=== PATIENT | female | born 1975 | race Caucasian/White ===

== ENCOUNTER 2016-05-07 09:47 | Emergency (ER) | payer MEDICAID ==
[~2016-05-07] VITALS: Ht 162.6 cm; Wt 86.2 kg
[~2016-05-07 09:47] MED LIST: AMIT25TA9 PO; ASP325T; CEFD300C3 PO; CEPH500C PO; CITA20TA12 PO; ENXP80I.8 SC; ETOD500T PO; HYDR-34 PO; HYDR-757 PO; INDM25C PO; MECL25TA56 PO; META-84 PO; MTP25TSR PO; ORPH100T PO; PROP20TA5 PO; TRAM50TA2 PO; WARF5TAB PO; WARF7.5T PO; mucinex
[2016-05-07] MEDS ORDERED: METO-272 PO (10:23)
[2016-05-07] MEDS ORDERED: HYDR-3584 PO (10:23)
[2016-05-07] MEDS ORDERED: DOXY-227 PO (10:23)
[2016-05-07] MEDS ORDERED: FLUT9.9S NS (10:23)
--- NOTE | 2016-05-07 11:44 | ED Headache ---
General Chief Complaint: Head/Cervical Problems Stated Complaint: MIGRANE Nursing Triage Note: PT CO OF MIGRAINE HERNANDEZ, PT HAS RECENTLY BEEN ON ANTIBIOTICS FOR SINUS INFECTION Nursing Sepsis Screen: No Definite Risk Source: patient Exam Limitations: no limitations History of Present Illness Time seen by provider: 11:44 Initial Comments 40-year-old female patient presents to the emergency department complaints of a [place] headache. Patient states she does have a history of suffering from migraines but has not had one for quite some time. Patient was recently treated for sinus infection and feels like this is what initiated the migraine headache. Denies fevers. Timing/Duration: waxing and waning, other (3 days) Severity/Quality: throbbing Location: frontal, parietal Prior Headaches/Recent Trauma: occasional headaches Modifying Factors: worse with exposure to light, worse with other (exposure to sound) Allergies and Home Medications Allergies Coded Allergies: No Known Drug Allergies (Verified , 01/01/09) Home Medications Doxycycline Hyclate 100 Mg Tablet.dr 100 MG PO BID (Reported) Fluticasone Propionate 9.9 Ml [place].susp 9.9 ML NS (Reported) Hydroxyzine HCl 10 Mg Tablet Unknown Dose PO (Reported) Metoprolol Succinate 50 Mg Tab.er.24h 50 MG PO DAILY (Reported) Sumatriptan Succinate 50 Mg Tab #14 50 MG PO ONCE PRN PRN HEADACHE you may repeat dose x 1 if needed. Prescribed by: PARIS VANCE on 05/07/16 5834 Constitutional: No chills, No dizziness, No fever, No malaise, No weakness Eyes: Denies Blindness, Denies Blurred Vision, Denies Decreased Acuity, Denies Inflammation, Denies Pain, Photophobia Other (scatomas) Ears, Nose, Mouth, Throat: denies ear pain, denies ear discharge, denies nose pain, denies nose discharge, denies epistaxis, denies mouth pain, denies loose teeth, denies throat pain Respiratory: no symptoms reported Cardiovascular: no symptoms reported Gastrointestinal: no symptoms reported Genitourinary: no symptoms reported Musculoskeletal: no symptoms reportedNo neck pain Skin: no symptoms reported Psychiatric/Neurological: HeadacheDenies Numbness, Denies Paresthesia, Denies Seizure, Denies Tingling, Denies Weakness All Other Systems Reviewed Negative Unless Noted: Yes (Negative excepted noted.) Past Vvdhhzl-Xnuzdc-Gjoesa Hx Patient Social History Alcohol Use: Occasionally Uses Recreational Drug Use: No Smoking Status: Current Everyday Smoker Type Used: Cigarettes Recent Foreign Travel: No Contact w/Someone Who Travel: No Recent Infectious Disease Expo: No Recent Hopitalizations: No (LABOR) Physical Abuse Screen: No Sexual Abuse: No Immunizations Up To Date Tetanus Booster (TDap): Less than 5yrs Surgeries HX Surgeries: Yes (LIVER BIOPSY, BRONCHOSCOPY, L KNEE SCOPE) Surgeries: Orthopedic Respiratory Hx Respiratory Disorders: No Cardiovascular Hx Cardiac Disorders: Yes (FREQUENT PVCS) Cardiac Disorders: Deep Vein Thrombosis, Hypertension Neurological Hx Neurological Disorders: Yes Neurological Disorders: Headaches /Migraines Reproductive System Hx Reproductive Disorders: No Genitourinary Hx Genitourinary Disorders: No Gastrointestinal Hx Gastrointestinal Disorders: Yes (LIVER BIOPSY 3-4 YEARS AGO; HEP C) Gastrointestinal Disorders: Hepatitis Musculoskeletal Hx Musculoskeletal Disorders: Yes (SACROLITIS) Musculoskeletal Disorders: Rheumatoid Arthritis Endocrine Hx Endocrine Disorders: Yes (NOT TREATED) Endocrine Disorders: Hyperthyroidism HEENT HX ENT Disorders: No Cancer Hx Cancer: No Psychosocial Hx Psychiatric Problems: Yes Behavioral Health Disorders: Depression Blood Transfusions Hx Blood Disorders: Yes (HEP C ) Reviewed Nursing Assessment Reviewed/Agree w Nursing PMH: Yes Family Medical History Significant Family History: No Pertinent Family Hx Family Medial History: Cancer 19 FATHER G8 SISTER Family history: Diabetes mellitus 19 FATHER G8 SISTER Family history: Hypertension 19 FATHER Physical Exam Vital Signs Vital Sign - Last 12Hours 05/07/16 10:14 Temp 98.4 Pulse 68 Resp 18 B/P 137/80 Pulse Ox 97 Capillary Refill : Less Than 3 Seconds General Appearance: WD/WN no apparent distress HEENT: PERRL/EOMI normal ENT inspection TMs normal pharynx normal Neck: non-tender full range of motion supple normal inspection Cardiovascular: normal peripheral pulses regular rate, rhythm no edema no murmur Respiratory: lungs clear normal breath sounds no respiratory distress Gastrointestinal: non tender softNo distended Back: normal inspection Extremities: no pedal edema no calf tenderness normal capillary refill Psychiatric: alert oriented x 3 Crainal Nerves: normal hearing normal speech PERRL Coordination/Gait: normal finger to nose normal gait negative Romberg's sign Motor/Sensory: no motor deficit no sensory deficit no pronator drift Skin: normal color warm/dry Progress/Results/Core Measures Results/Orders My Orders Orders-PARIS VANCE Saline Lock/Iv-Start (05/07/16 11:56) Ketorolac Injection (Toradol Injection) (05/07/16 11:56) Orphenadrine Injection (Norflex Injectio (05/07/16 11:56) Ondansetron Injection (Zofran Injectio (05/07/16 12:00) Ns Iv 1000 Ml (Sodium Chloride 0.9%) (05/07/16 11:56) Diphenhydramine Injection (Benadryl Inje (05/07/16 11:56) Vital Signs/I&O Vital Sign - Last 12Hours 05/07/16 05/07/16 10:14 13:14 Temp 98.4 Pulse 68 62 Resp 18 18 B/P 137/80 Pulse Ox 97 97 Blood Pressure Mean: 99 Departure Communication Progress Notes Patient reports was complete resolution of symptoms with medications and IV fluids given. Alert and oriented 3, no acute distress. Proceed with discharge to home. All return precautions were discussed with the patient as described in the discharge instructions of this report. Patient voices understanding and agrees with the treatment plan. Patient ambulated from the emergency department without difficulty. Impression Impression: Primary Impression: Migraine Qualified Code: G43.909 - Migraine, unspecified, not intractable, without status migrainosus Disposition: 01 HOME, SELF-CARE Condition: Improved Departure-Patient Inst. Decision time for Depature: 12:19 Referrals: [facility] (PCP/Family) Primary Care Physician Patient Instructions: Migraine Headache (DC) Add. Discharge Instructions: All discharge instructions reviewed with patient and/or family. Voiced understanding. Medications as instructed. Tylenol extra strength over-the- counter as directed for pain. Ibuprofen 800 mg by mouth every 8 hours as needed for pain. Avoid bright lights and loud noises. Drink plenty of fluids. Follow-up with a family practitioner if no improvement in symptoms. Return to the emergency department immediately for worsened headache, dizziness, changes in vision, changes in behavior, slurred speech, numbness, weakness, seizure, or any other concerns. Scripts Sumatriptan Succinate (Imitrex)50 Mg Tab50 Mg PO ONCE PRN HEADACHE #14 TAB Ref 0 you may repeat dose x 1 if needed. Prov:PARIS VANCE 05/07/16 Work/School Note: Work Release Form Date Seen in the Emergency Department: May 07, 2016 Return to Work: May 08, 2016 Restrictions: No Restrictions Other Restrictions Listed Below: please excuse patient's absence 05/06 and 05/07. PARIS VANCE May 07, 2016 11:44
[2016-05-07] MEDS ORDERED: KETOROLAC 30 MG/ML VIAL IVP STA (11:56)
[2016-05-07] MEDS ORDERED: NS IV 1000 ML 1,000 ML IV ONE (11:56)
[2016-05-07] MEDS ORDERED: diphenhydrAMINE 50 MG/ML INJ (BENADRYL) IV STA (11:56)
[2016-05-07] MEDS ORDERED: ORPHENADRINE 60 MG/2 ML (NORFLEX) AMP IV STA (11:56)
[2016-05-07] MEDS ORDERED: ONDANSETRON 4 MG/2 ML (SDV) Z0FRAN IVP ONE (12:00)
[2016-05-07] MEDS ORDERED: SMTR50T PO (12:07)
[2016-05-07 13:14] VITALS: BP 122/71
== END 2016-05-07 13:14 | disposition home or self-care (01) ==
LOC: EDUNIT# 09:47 → ER 09:49
DX: G43.909 Migraine, unspecified, not intractable, without status migrainosus (principal); F17.210 Nicotine dependence, cigarettes, uncomplicated
CPT/HCPCS: 96361; 96374; 96375

== ENCOUNTER 2016-05-09 14:58 | Emergency (ER) | payer MEDICAID ==
[~2016-05-09] VITALS: Ht 162.6 cm; Wt 86.5 kg
[~2016-05-09 14:58] MED LIST changes: +DOXY-227 PO; +FLUT9.9S NS; +HYDR-3584 PO; +METO-272 PO; +SMTR50T PO
[2016-05-09] MEDS ORDERED: ACET/BUTAL/CAFF (FIORICET) TAB PO PRN (15:30)
--- NOTE | 2016-05-09 15:33 | ED General ---
General Stated Complaint: LIGHTHEADED/DIZZY HEADACHE Source of Information: Patient Exam Limitations: No Limitations History of Present Illness Time Seen by Provider: 15:31 Initial Comments To ER with reports of lightheadedness and dizziness as well as a right-sided frontal headache. She was seen here 2 days ago for a migraine which she gets about once every 2 years. She was given Imitrex which did improve her headache symptoms although it remained present just to a lesser degree. She was treated a few weeks ago for sinusitis with antibiotics but finished antibiotics about 4- 5 days ago. Denies fevers or chills. Denies nasal congestion. She does feel like her symptoms improved after the antibiotics. She is concerned because she is very weak and has been exposed to mono she states. Timing/Duration: 3-4 Days Severity: Moderate Associated Systoms: Malaise Weakness Allergies and Home Medications Allergies Coded Allergies: No Known Drug Allergies (Verified , 01/01/09) Home Medications Doxycycline Hyclate 100 Mg Tablet.dr 100 MG PO BID (Reported) Fluticasone Propionate 9.9 Ml [place].susp 9.9 ML NS (Reported) Hydroxyzine HCl 10 Mg Tablet Unknown Dose PO (Reported) Metoprolol Succinate 50 Mg Tab.er.24h 50 MG PO DAILY (Reported) Sumatriptan Succinate 50 Mg Tab #14 50 MG PO ONCE PRN PRN HEADACHE you may repeat dose x 1 if needed. Prescribed by: PARIS VANCE on 05/07/16 1207 Constitutional: see HPI malaise weakness EENTM: see HPINo ear pain, No eye pain, No nose congestion Respiratory: no symptoms reportedNo dyspnea on exertion Cardiovascular: no symptoms reported Genitourinary: no symptoms reported Musculoskeletal: no symptoms reported Skin: no symptoms reported Psychiatric/Neurological: No Symptoms Reported Hematologic/Lymphatic: No Symptoms Reported Immunological/Allergic: no symptoms reported Past Boulppb-Isgcrr-Sbmfyx Hx Patient Social History Type Used: Cigarettes Recent Foreign Travel: No Contact w/Someone Who Travel: No Recent Hopitalizations: No (LABOR) Immunizations Up To Date Tetanus Booster (TDap): Less than 5yrs Surgeries HX Surgeries: Yes (LIVER BIOPSY, BRONCHOSCOPY, L KNEE SCOPE) Surgeries: Orthopedic Respiratory Hx Respiratory Disorders: No Cardiovascular Hx Cardiac Disorders: Yes (FREQUENT PVCS) Cardiac Disorders: Deep Vein Thrombosis, Hypertension Neurological Hx Neurological Disorders: Yes Neurological Disorders: Headaches /Migraines Reproductive System Hx Reproductive Disorders: No Genitourinary Hx Genitourinary Disorders: No Gastrointestinal Hx Gastrointestinal Disorders: Yes (LIVER BIOPSY 3-4 YEARS AGO; HEP C) Gastrointestinal Disorders: Hepatitis Musculoskeletal Hx Musculoskeletal Disorders: Yes (SACROLITIS) Musculoskeletal Disorders: Rheumatoid Arthritis Endocrine Hx Endocrine Disorders: Yes (NOT TREATED) Endocrine Disorders: Hyperthyroidism HEENT HX ENT Disorders: No Cancer Hx Cancer: No Psychosocial Hx Psychiatric Problems: Yes Behavioral Health Disorders: Depression Blood Transfusions Hx Blood Disorders: Yes (HEP C ) Family Medical History Significant Family History: No Pertinent Family Hx Family Medial History: Cancer 19 FATHER G8 SISTER Family history: Diabetes mellitus 19 FATHER G8 SISTER Family history: Hypertension 19 FATHER Physical Exam Vital Signs Vital Sign - Last 12Hours 05/09/16 15:15 Temp 98.9 Pulse 85 Resp 18 B/P 137/76 Pulse Ox 98 O2 Delivery Room Air Capillary Refill : General Appearance: No Apparent Distress WD/WN Eyes: Bilateral Eye EOMI, Bilateral Eye Normal Inspection, Bilateral Eye PERRL HEENT: PERRL/EOMI TMs Normal Neck: Full Range of Motion Normal Inspection Respiratory: Normal Breath Sounds No Accessory Muscle Use No Respiratory Distress Cardiovascular: Regular Rate, Rhythm Normal Peripheral Pulses Gastrointestinal: Normal Bowel Sounds Non Tender Soft Extremity: Normal Capillary Refill Normal Inspection Neurologic/Psychiatric: Alert Oriented x3 No Motor/Sensory Deficits Skin: Normal Color Warm/Dry Progress/Results/Core Measures Results/Orders Lab Results Laboratory Tests Test 05/09/16 15:45 Range/Units Alanine Aminotransferase (ALT/SGPT) 11 0-55 U/L Albumin 4.1 3.2-4.5 G/DL Alkaline Phosphatase 50 40-136 U/L Anion Gap 10 5-14 MMOL/L Aspartate Amino Transf (AST/SGOT) 12 5-34 U/L BUN/Creatinine Ratio 18 Basophils # (Auto) 0.0 0.0-0.1 10^3/uL Basophils (%) (Auto) 0 0-10 % Blood Urea Nitrogen 13 7-18 MG/DL Calcium Level 9.3 8.5-10.1 MG/DL Carbon Dioxide Level 24 21-32 MMOL/L Chloride Level 107 98-107 MMOL/L Creatinine 0.72 0.60-1.30 MG/DL Eosinophils # (Auto) 0.1 0.0-0.3 10^3/uL Eosinophils (%) (Auto) 1 0-10 % Estimat Glomerular Filtration Rate > 60 Glucose Level 111 H 70-105 MG/DL Hematocrit 43 35-52 % Hemoglobin 14.7 11.5-16.0 G/DL Lymphocytes # (Auto) 2.5 1.0-4.0 X 10^3 Lymphocytes (%) (Auto) 23 12-44 % Mean Corpuscular Hemoglobin 30 25-34 PG Mean Corpuscular Hemoglobin Concent 34 32-36 G/DL Mean Corpuscular Volume 87 80-99 FL Mean Platelet Volume 9.3 7.4-10.4 FL Monocytes # (Auto) 0.9 0.0-1.0 X 10^3 Monocytes (%) (Auto) 8 0-12 % Monoscreen NEGATIVE NEGATIVE Neutrophils # (Auto) 7.4 1.8-7.8 X 10^3 Neutrophils (%) (Auto) 68 42-75 % Platelet Count 337 130-400 10^3/uL Potassium Level 3.7 3.6-5.0 MMOL/L Red Blood Count 4.94 4.35-5.85 10^6/uL Red Cell Distribution Width 12.7 10.0-14.5 % Sodium Level 141 135-145 MMOL/L Total Bilirubin 0.9 0.1-1.0 MG/DL Total Protein 6.8 6.4-8.2 G/DL Ur Tricyclic Antidepressants Screen NEGATIVE NEGATIVE Urine Amphetamines Screen NEGATIVE NEGATIVE Urine Bacteria NONE /HPF Urine Barbiturates Screen NEGATIVE NEGATIVE Urine Benzodiazepines Screen NEGATIVE NEGATIVE Urine Bilirubin NEGATIVE NEGATIVE Urine Cannabinoids Screen NEGATIVE NEGATIVE Urine Casts NONE /LPF Urine Clarity CLEAR Urine Cocaine Screen NEGATIVE NEGATIVE Urine Color YELLOW Urine Crystals NONE /LPF Urine Culture Indicated NO Urine Glucose (UA) NEGATIVE NEGATIVE Urine Ketones NEGATIVE NEGATIVE Urine Leukocyte Esterase NEGATIVE NEGATIVE Urine Methadone Screen NEGATIVE NEGATIVE Urine Methamphetamines Screen NEGATIVE NEGATIVE Urine Mucus NEGATIVE /LPF Urine Nitrite NEGATIVE NEGATIVE Urine Opiates Screen NEGATIVE NEGATIVE Urine Oxycodone Screen POSITIVE H NEGATIVE Urine Phencyclidine Screen NEGATIVE NEGATIVE Urine Propoxyphene Screen NEGATIVE NEGATIVE Urine Protein NEGATIVE NEGATIVE Urine RBC 5-10 H /HPF Urine RBC (Auto) 2+ H NEGATIVE Urine Renal Epithelial Cells /HPF Urine Specific [place] 1.025 H 1.016-1.022 Urine Urobilinogen 1 NORMAL MG/DL Urine WBC NONE /HPF Urine pH 6 5-9 White Blood Count 10.9 4.3-11.0 10^3/uL My Orders Orders-PAUL WITT APRN Cbc With Automated Diff (05/09/16 15:18) Comprehensive Metabolic Panel (05/09/16 15:18) Ua Culture If Indicated (05/09/16 15:18) Drug Screen Stat (Urine) (05/09/16 15:18) Monotest (05/09/16 15:30) Ct Head Wo (05/09/16 15:30) Butalbital/Apap/Caffeine Tab (Fioricet T (05/09/16 15:30) Medications Given in ED Current Medications Medications Dose Ordered Sig/Jim Route Start Time Stop Time Status Last Admin Dose Admin Acetaminophen/ Butalbital/ Caffeine 1 tab ONCE PRN PO 05/09/16 15:30 05/09/16 16:17 1 TAB Vital Signs/I&O Vital Sign - Last 12Hours 05/09/16 15:15 Temp 98.9 Pulse 85 Resp 18 B/P 137/76 Pulse Ox 98 O2 Delivery Room Air Diagnostic Imaging Diagonstic Imaging: CT Comments NAME: PHAN MCFARLAND MED REC#: [id number] PT STATUS: REG ER : 1975 PHYSICIAN: PAUL WITT APRN ADMIT DATE: 05/09/16/ER Signed Date of Exam:05/09/16 CT HEAD WO PROCEDURE: CT head without contrast. TECHNIQUE: Multiple contiguous axial images were obtained through the brain without the use of intravenous contrast. INDICATION: Headache. Dizziness. . FINDINGS: There is no intracranial hemorrhage, edema or mass effect. The brain parenchyma appears unremarkable. No hydrocephalus. The visualized portions of the orbits and paranasal sinuses appear unremarkable. IMPRESSION: Unremarkable study. Dictated by: Dictated on workstation # [id number] Dict: 05/09/16 1611 Trans: 05/09/16 161 [facility] [id number] Interpreted by: KIANNA SCHWARTZ MD Electronically signed by: KIANNA SCHWARTZ MD 05/09/16 161 Departure Impression Impression: Primary Impression: Headache Qualified Code: R51 - Headache Additional Impression: Malaise Disposition: 01 HOME, SELF-CARE Condition: Stable Departure-Patient Inst. Decision time for Depature: 16:18 Referrals: [facility] (PCP/Family) Primary Care Physician Patient Instructions: Headache, Adult (DC) Add. Discharge Instructions: 1. Follow-up with your doctor later this week or next week 2. Return to ER for any fevers or other concerns PAUL WITT APRN May 09, 2016 15:33
[2016-05-09 16:00] LABS: BASOPHILS % (AUTO) 0 % (0-10); EOSINOPHILS # (AUTO) 0.1 10^3/uL (0.0-0.3); EOSINOPHILS % (AUTO) 1 % (0-10); LYMPHOCYTES # (AUTO) 2.5 X 10^3 (1.0-4.0); LYMPHOCYTES % (AUTO) 23 % (12-44); MEAN CORPUSCULAR HEMOGLOBIN 30 PG (25-34); MEAN CORPUSCULAR HGB CONC 34 G/DL (32-36); MEAN CORPUSCULAR VOLUME 87 FL (80-99); MEAN PLATELET VOLUME 9.3 FL (7.4-10.4); MONOCYTES # (AUTO) 0.9 X 10^3 (0.0-1.0); MONOCYTES % (AUTO) 8 % (0-12); NEUTROPHILS # (AUTO) 7.4 X 10^3 (1.8-7.8); NEUTROPHILS % (AUTO) 68 % (42-75); PLATELET COUNT 337 10^3/uL (130-400); RED BLOOD COUNT 4.94 10^6/uL (4.35-5.85); RED CELL DISTRIBUTION WIDTH 12.7 % (10.0-14.5); WHITE BLOOD COUNT 10.9 10^3/uL (4.3-11.0)
[2016-05-09 16:03] LABS: BILIRUBIN,URINE NEGATIVE (NEGATIVE); KETONES,URINE NEGATIVE (NEGATIVE); LEUKOCYTE ESTERASE ,URINE NEGATIVE (NEGATIVE); NITRITE,URINE NEGATIVE (NEGATIVE); PH,URINE 6 (5-9); PROTEIN,URINE NEGATIVE (NEGATIVE); UROBILINOGEN,URINE 1 MG/DL (NORMAL)
--- NOTE | 2016-05-09 16:15 | Diagnostic Imaging Report ---
PROCEDURE: CT head without contrast. TECHNIQUE: Multiple contiguous axial images were obtained through the brain without the use of intravenous contrast. INDICATION: Headache. Dizziness. . FINDINGS: There is no intracranial hemorrhage, edema or mass effect. The brain parenchyma appears unremarkable. No hydrocephalus. The visualized portions of the orbits and paranasal sinuses appear unremarkable. IMPRESSION: Unremarkable study. Dictated by: Dictated on workstation # [id number]
[2016-05-09 16:16] LABS: ALANINE AMINOTRANSFERASE 11 U/L (0-55); ALBUMIN 4.1 G/DL (3.2-4.5); ANION GAP 10 MMOL/L (5-14); ASPARTATE AMINO TRANSFERASE 12 U/L (5-34); BILIRUBIN,TOTAL 0.9 MG/DL (0.1-1.0); BLOOD UREA NITROGEN 13 MG/DL (7-18); BUN/CREATININE RATIO 18; CALCIUM 9.3 MG/DL (8.5-10.1); CARBON DIOXIDE 24 MMOL/L (21-32); CHLORIDE 107 MMOL/L (98-107); CREATININE SERUM 0.72 MG/DL (0.60-1.30); GFR ESTIMATED > 60; GLUCOSE 111 MG/DL (70-105); POTASSIUM 3.7 MMOL/L (3.6-5.0); SODIUM 141 MMOL/L (135-145); TOTAL PROTEIN 6.8 G/DL (6.4-8.2)
[2016-05-09 16:36] VITALS: BP 137/76
== END 2016-05-09 16:36 | disposition home or self-care (01) ==
LOC: EDUNIT# 14:58 → ER 15:01
DX: R51 Headache (principal); R53.81 Other malaise
CPT/HCPCS: 36415; 70450; 80053; 80306; 81000; 85025; 86308

== ENCOUNTER → 2016-06-18 | Outpatient (CLI) | payer MEDICAID ==
[~2016-06-18] MED LIST changes: +DOXY100C2; +NAPR500T3
--- NOTE | 2016-06-18 14:36 | Diagnostic Imaging Report ---
PROCEDURE: MR imaging cervical spine without contrast. TECHNIQUE: Multiplanar, multisequence MR imaging of the cervical spine was performed without contrast. INDICATION: Neck stiffness. Bilateral leg and arm pain and numbness. FINDINGS: There is straightening of the cervical lordosis. The alignment at the posterior spinal line is satisfactory. Alignment of the facet joints is also satisfactory. The vertebral body heights are preserved. There is disc desiccation at all levels. There is no significant disc height loss at any level. The spinal cord has normal signal. There is mild marrow edema along the endplates around the C5-C6 level. The foramen magnum and upper spinal canal are widely patent. C2-C3: There is no disc herniation, no spinal canal or foraminal stenosis. C3-C4: No disc herniation, no spinal canal or foraminal stenosis. C4-C5: There is a minimal disc spur complex with no significant spinal canal stenosis. No foraminal narrowing. C5-C6: There is a central disc spur complex seen associated with prwzkezb-op-spteok spinal canal stenosis reducing the AP caliber of the central canal to 6.7 mm and resulting in mild cord compression without cord signal abnormality. No significant foramina stenosis. C6-C7: There is a spur disc complex associated with wjnp-xx-nlytmrrn spinal canal stenosis reducing the AP dimension of the canal to 8.6 mm with no cord compression. C7-T1: No significant abnormality. IMPRESSION: There is kzdmehtc-lb-prkpnq spinal canal stenosis at the C5-C6 level associated with mild cord compression. Xlkc-do-tvhdxjmp spinal canal stenosis at the C6-C7 level is also seen without cord compression. Dictated by: Dictated on workstation # [id number]
== END ==
LOC: RAD 12:55
PROVIDERS: ATTEND Nurse Practitioner Community Health
DX: M54.14 Radiculopathy, thoracic region (principal); M54.12 Radiculopathy, cervical region
CPT/HCPCS: 72141

== ENCOUNTER 2016-08-19 17:15 | Emergency (ER) | payer SELFPAY ==
[~2016-08-19] VITALS: Ht 162.6 cm; Wt 86.5 kg
[~2016-08-19 17:15] MED LIST changes: -DOXY100C2; -NAPR500T3
[2016-08-19] MEDS ORDERED: DOXY100C2 (17:43)
[2016-08-19] MEDS ORDERED: NAPR500T3 (17:43)
[2016-08-19 17:55] LABS: BILIRUBIN,URINE NEGATIVE (NEGATIVE); KETONES,URINE NEGATIVE (NEGATIVE); LEUKOCYTE ESTERASE ,URINE 1+ (NEGATIVE); NITRITE,URINE NEGATIVE (NEGATIVE); PH,URINE 6.5 (5-9); PROTEIN,URINE NEGATIVE (NEGATIVE); UROBILINOGEN,URINE 1 MG/DL (NORMAL)
[2016-08-19 18:03] LABS: WBC,URINE 0-2 /HPF
[2016-08-19 18:10] LABS: BASOPHILS % (AUTO) 0 % (0-10); EOSINOPHILS # (AUTO) 0.1 10^3/uL (0.0-0.3); EOSINOPHILS % (AUTO) 1 % (0-10); LYMPHOCYTES # (AUTO) 2.7 X 10^3 (1.0-4.0); LYMPHOCYTES % (AUTO) 23 % (12-44); MEAN CORPUSCULAR HEMOGLOBIN 30 PG (25-34); MEAN CORPUSCULAR HGB CONC 33 G/DL (32-36); MEAN CORPUSCULAR VOLUME 90 FL (80-99); MEAN PLATELET VOLUME 9.4 FL (7.4-10.4); MONOCYTES # (AUTO) 0.8 X 10^3 (0.0-1.0); MONOCYTES % (AUTO) 7 % (0-12); NEUTROPHILS % (AUTO) 69 % (42-75); PLATELET COUNT 373 10^3/uL (130-400); RED BLOOD COUNT 4.64 10^6/uL (4.35-5.85); RED CELL DISTRIBUTION WIDTH 12.9 % (10.0-14.5); WHITE BLOOD COUNT 11.6 10^3/uL (4.3-11.0)
[2016-08-19 18:20] LABS: PROTHROMBIN TIME PATIENT 12.5 SEC (12.2-14.7)
[2016-08-19 18:25] LABS: ERYTHROCYTE SEDIMENTATION RATE 6 MM/HR (0-20)
[2016-08-19 18:28] LABS: ALANINE AMINOTRANSFERASE 12 U/L (0-55); ALBUMIN 4.1 G/DL (3.2-4.5); ANION GAP 11 MMOL/L (5-14); ASPARTATE AMINO TRANSFERASE 14 U/L (5-34); BILIRUBIN,TOTAL 1.1 MG/DL (0.1-1.0); BLOOD UREA NITROGEN 17 MG/DL (7-18); BUN/CREATININE RATIO 25; CALCIUM 8.8 MG/DL (8.5-10.1); CARBON DIOXIDE 22 MMOL/L (21-32); CHLORIDE 109 MMOL/L (98-107); CREATININE SERUM 0.68 MG/DL (0.60-1.30); GFR ESTIMATED > 60; GLUCOSE 103 MG/DL (70-105); POTASSIUM 3.7 MMOL/L (3.6-5.0); SODIUM 142 MMOL/L (135-145); TOTAL PROTEIN 6.8 G/DL (6.4-8.2)
--- NOTE | 2016-08-19 18:32 | ED Lower Extremity ---
General Chief Complaint: Lower Extremity Stated Complaint: L LEG BRUISING/INJ Nursing Triage Note: Stated Saturday eventing, was running bases for baseball. States left thigh muscle seized up and began bruising. Left thigh swollen with dark discoloration from upper left thigh down to inside of left calf- mid level. States she is nauseated and aching. Thinks she is urinating blood Nursing Sepsis Screen: No Definite Risk History of Present Illness Time seen by provider: 17:55 Initial Comments evaluation for left thigh bruising. On 08/15/16 the patient played a softball game, after running she began to notice a little bit of ecchymosis on her left thigh. Since then the bruising has progressed and become circumferential. Today she noted it to be going distally towards the tibia. she denies any injury to the thigh or leg during the game. She is physically active daily cleaning homes. She is not take aspirin or any prescription blood thinners. She does take Aleve 500 mg twice a day and Tumeric for arthritis. She had a left knee arthroscopy 2 years ago and then a DVT in the left lower extremity. She denies any pain in the left lower extremity. Pain/Injury Location: left thigh (ecchymosis) Method of Injury: unknown Allergies and Home Medications Allergies Coded Allergies: No Known Drug Allergies (Verified , 08/19/16) Home Medications Doxycycline Hyclate 100 Mg Capsule, #20 (Reported) Hydroxyzine HCl 10 Mg Tablet, Unknown Dose PO, (Reported) Metoprolol Succinate 50 Mg Tab.er.24h, 50 MG PO DAILY, (Reported) Naproxen 500 Mg Tablet, #60 (Reported) Constitutional: see HPI, malaise EENTM: no symptoms reported, see HPI Respiratory: no symptoms reported, see HPI Cardiovascular: no symptoms reported, see HPI Gastrointestinal: no symptoms reported, see HPI Musculoskeletal: no symptoms reported, see HPI Skin: no symptoms reported, see HPI Psychiatric/Neurological: No Symptoms Reported, See HPI All Other Systems Reviewed Negative Unless Noted: Yes Past Klmozda-Zbngho-Ssgrwq Hx Patient Social History Alcohol Use: Rarely Uses Recreational Drug Use: No Smoking Status: Current Everyday Smoker Type Used: Cigarettes Recent Foreign Travel: No Contact w/Someone Who Travel: No Recent Infectious Disease Expo: No Recent Hopitalizations: No Immunizations Up To Date Tetanus Booster (TDap): Less than 5yrs Surgeries HX Surgeries: Yes (LIVER BIOPSY, BRONCHOSCOPY, L KNEE SCOPE) Surgeries: Orthopedic Respiratory Hx Respiratory Disorders: No Cardiovascular Hx Cardiac Disorders: Yes (FREQUENT PVCS) Cardiac Disorders: Deep Vein Thrombosis, Hypertension Neurological Hx Neurological Disorders: Yes Neurological Disorders: Headaches /Migraines Reproductive System Hx Reproductive Disorders: No Genitourinary Hx Genitourinary Disorders: No Gastrointestinal Hx Gastrointestinal Disorders: Yes (LIVER BIOPSY 3-4 YEARS AGO; HEP C-treated) Gastrointestinal Disorders: Hepatitis Musculoskeletal Hx Musculoskeletal Disorders: Yes (SACROLITIS) Musculoskeletal Disorders: Rheumatoid Arthritis Endocrine Hx Endocrine Disorders: Yes (NOT TREATED- wln ) Endocrine Disorders: Hyperthyroidism HEENT HX ENT Disorders: No Cancer Hx Cancer: No Psychosocial Hx Psychiatric Problems: Yes Behavioral Health Disorders: Depression Blood Transfusions Hx Blood Disorders: Yes (HEP C- treated) Reviewed Nursing Assessment Reviewed/Agree w Nursing PMH: Yes Family Medical History Significant Family History: No Pertinent Family Hx Family Medial History: Cancer 19 FATHER G8 SISTER Family history: Diabetes mellitus 19 FATHER G8 SISTER Family history: Hypertension 19 FATHER Physical Exam Vital Signs Vital Sign - Last 12Hours 08/19/ 17:29 Temp 99.3 Pulse 71 Resp 18 B/P (MAP) 158/89 Pulse Ox 97 Capillary Refill : Less Than 3 Seconds General Appearance: WD/WN, no apparent distress HEENT: PERRL/EOMI, normal ENT inspection, TMs normal, pharynx normal Neck: non-tender, full range of motion, supple, normal inspection Cardiovascular: normal peripheral pulses, regular rate, rhythm, no murmur, other (pedal pulses 2+ and symmetric negative Homans sign bilaterally, capillary refill less than 2 seconds bilaterally lower and upper extremities) Respiratory: chest non-tender, lungs clear, normal breath sounds, no accessory muscle use Gastrointestinal: normal bowel sounds, non tender, soft Back: normal inspection, no CVA tenderness Hips: bilateral hip non-tender, bilateral hip normal inspection, bilateral hip normal range of motion Legs: bilateral leg non-tender, bilateral leg normal range of motion, bilateral leg no evidence of injury, left leg ecchymosis (left anterior medial and lateral thigh, will uvaldo, nontender) Knees: bilateral knee non-tender, bilateral knee normal inspection, bilateral knee normal range of motion Ankles: bilateral ankle non-tender, bilateral ankle normal inspection, bilateral ankle normal range of motion, bilateral ankle no evidence of injury Neurologic/Tendon: normal sensation, normal motor functions, normal tendon functions Neurologic/Psychiatric: no motor/sensory deficits, alert, normal mood/affect, oriented x 3 Skin: warm/dry, ecchymosis (left thigh and proximal tibia) Progress/Results/Core Measures Results/Orders Lab Results Laboratory Tests Test 08/19/16 17:45 08/19/16 18:04 Range/Units Urine Color YELLOW Urine Clarity CLEAR Urine pH 6.5 5-9 Urine Specific [place] 1.015 L 1.016-1.022 Urine Protein NEGATIVE NEGATIVE Urine Glucose (UA) NEGATIVE NEGATIVE Urine Ketones NEGATIVE NEGATIVE Urine Nitrite NEGATIVE NEGATIVE Urine Bilirubin NEGATIVE NEGATIVE Urine Urobilinogen 1 NORMAL MG/DL Urine Leukocyte Esterase 1+ H NEGATIVE Urine RBC (Auto) 1+ H NEGATIVE Urine RBC NONE /HPF Urine WBC 0-2 /HPF Urine Squamous Epithelial Cells 10-25 H /HPF Urine Crystals NONE /LPF Urine Amorphous Sediment RARE SRINI URATES H /LPF Urine Bacteria TRACE /HPF Urine Casts NONE /LPF Urine Mucus NEGATIVE /LPF Urine Culture Indicated NO White Blood Count 11.6 H 4.3-11.0 10^3/uL Red Blood Count 4.64 4.35-5.85 10^6/uL Hemoglobin 13.9 11.5-16.0 G/DL Hematocrit 42 35-52 % Mean Corpuscular Volume 90 80-99 FL Mean Corpuscular Hemoglobin 30 25-34 PG Mean Corpuscular Hemoglobin Concent 33 32-36 G/DL Red Cell Distribution Width 12.9 10.0-14.5 % Platelet Count 373 130-400 10^3/uL Mean Platelet Volume 9.4 7.4-10.4 FL Neutrophils (%) (Auto) 69 42-75 % Lymphocytes (%) (Auto) 23 12-44 % Monocytes (%) (Auto) 7 0-12 % Eosinophils (%) (Auto) 1 0-10 % Basophils (%) (Auto) 0 0-10 % Neutrophils # (Auto) 8.0 H 1.8-7.8 X 10^3 Lymphocytes # (Auto) 2.7 1.0-4.0 X 10^3 Monocytes # (Auto) 0.8 0.0-1.0 X 10^3 Eosinophils # (Auto) 0.1 0.0-0.3 10^3/uL Basophils # (Auto) 0.0 0.0-0.1 10^3/uL Erythrocyte Sedimentation Rate 6 0-20 MM/HR Prothrombin Time 12.5 12.2-14.7 SEC INR Comment 1.0 0.8-1.4 Activated Partial Thromboplast Time 24 24-35 SEC Sodium Level 142 135-145 MMOL/L Potassium Level 3.7 3.6-5.0 MMOL/L Chloride Level 109 H 98-107 MMOL/L Carbon Dioxide Level 22 21-32 MMOL/L Anion Gap 11 5-14 MMOL/L Blood Urea Nitrogen 17 7-18 MG/DL Creatinine 0.68 0.60-1.30 MG/DL Estimat Glomerular Filtration Rate > 60 BUN/Creatinine Ratio 25 Glucose Level 103 70-105 MG/DL Calcium Level 8.8 8.5-10.1 MG/DL Total Bilirubin 1.1 H 0.1-1.0 MG/DL Aspartate Amino Transf (AST/SGOT) 14 5-34 U/L Alanine Aminotransferase (ALT/SGPT) 12 0-55 U/L Alkaline Phosphatase 49 40-136 U/L Creatine Kinase MB 1.1 <6.6 NG/ML Myoglobin 25.7 10.0-92.0 NG/ML Total Protein 6.8 6.4-8.2 G/DL Albumin 4.1 3.2-4.5 G/DL My Orders Orders - BORIS HONG Cbc With Automated Diff (08/19/16 17:42) Comprehensive Metabolic Panel (08/19/16 17:42) Creatine Kinase Mb (08/19/16 17:42) Protime With Inr (08/19/16 17:42) Partial Thromboplastin Time (08/19/16 17:42) Ua Culture If Indicated (08/19/16 17:42) Erythrocyte Sedimentation Rate (08/19/16 17:42) Myoglobin Serum (08/19/16 18:15) Vital Signs/I&O Vital Sign - Last 12Hours 08/19/16 08/19/16 17:29 19:15 Temp 99.3 99.3 Pulse 71 81 Resp 18 18 B/P (MAP) 158/89 Pulse Ox 97 99 Blood Pressure Mean: 112 Progress Note : Time: 17:55 Progress Note initial evaluation was completed, will obtain labs and reevaluate the patient. 1830 labs all essentially normal. Discussed with patient recommended stopping the to Tumeric and Aleve as they could be causing the bruising. Abel wrap applied to left thigh. She will use ice 20 min every 2 hours. Departure Impression Impression: Primary Impression: Multiple ecchymoses of thigh Disposition: HOME, SELF-CARE Condition: Stable Departure-Patient Inst. Decision time for Depature: 18:40 Referrals: [facility] (PCP) Primary Care Physician SARAH MCGOWAN (Family) Primary Care Physician Patient Instructions: Taking Care of Bruises Add. Discharge Instructions: Ice to bruises 20 min every 2 hours. Compression with Abel Wrap. Stop Aleve and Tumeric, use Tylenol 650 mg every 6 hours. return to emergency department if bruising worsens, extremely pain, fevers or any new concerns. Follow-up with primary care provider in 3-4 days if no resolution of symptoms. All discharge instructions reviewed with patient and/or family. Voiced understanding. Work/School Note: Work Release Form Date Seen in the Emergency Department: Aug 19, 2016 Return to Work: Aug 20, 2016 Restrictions: No Restrictions BORIS HONG Aug 19, 2016 18:32
[2016-08-19 19:15] VITALS: BP 148/61
== END 2016-08-19 19:14 | disposition home or self-care (01) ==
LOC: EDUNIT# 17:15 → ER 17:17
DX: S70.12XA Contusion of left thigh, initial encounter (principal); I10 Essential (primary) hypertension; F17.210 Nicotine dependence, cigarettes, uncomplicated; X50.3XXA Overexertion from repetitive movements, initial encounter; Y93.64 Activity, baseball; Y92.320 Baseball field as the place of occurrence of the external cause; Y99.8 Other external cause status
CPT/HCPCS: 36415; 80053; 81000; 82553; 83874; 84703; 85025; 85610; 85652; 85730; 99283

== ENCOUNTER → 2017-04-22 | Outpatient (CLI) | payer SELFPAY ==
[~2017-04-22] MED LIST changes: +DOXY100C2; -METO-272 PO; +METO-370 PO; +NAPR500T4
--- NOTE | 2017-04-22 12:58 | Diagnostic Imaging Report ---
Multiplanar multisequence MRI of the thoracic spine performed without intravenous contrast. INDICATION: Back pain. FINDINGS: The thoracic spine has normal alignment. The vertebral body heights are preserved. Disc heights are also preserved. There is no disc desiccation at any level. There is a small lesion measuring 5 mm noted in T3 vertebral body suggestive of a hemangioma. There is otherwise no significant bone marrow signal abnormality. The spinal cord has normal caliber, contour, and signal. No spinal canal stenosis at any level. No significant disc herniation at any level. The neural foramina are patent. IMPRESSION: No significant abnormality. Dictated by: Dictated on workstation # [id number]
== END ==
LOC: RAD 10:59
PROVIDERS: ATTEND Nurse Practitioner Community Health
DX: M54.14 Radiculopathy, thoracic region (principal)
CPT/HCPCS: 72146

== ENCOUNTER 2017-05-24 14:24 | Emergency (ER) | payer SELFPAY ==
--- OUTSIDE RECORDS SUMMARY | 2017-05-24 14:48 | XMS REPORT ---
Author Author SARAH MCGOWAN Organization [facility] Address [address] [place] [address] Care Team Providers Care Architectural Intern Name Role Phone SARAH MCGOWAN Unavailable PROBLEMS Type Condition ICD9-CM Code [id number] Code Onset Dates Condition Status SNOMED Code Problem Rheumatoid arthritis involving knee, unspecified laterality, unspecified rheumatoid factor presence M06.069 Active 743054382 Problem Primary insomnia F51.01 Active 138755021 Problem Low back pain M54.5 Active 537209034 Problem HPV (human papilloma virus) anogenital infection A63.0 Active 209934746 Problem Atrial fibrillation, unspecified type I48.91 Active 35885688 Problem Hepatitis C, chronic B18.2 Active 180655560 Problem DVT (deep venous thrombosis), unspecified laterality I82.409 Active 097571930 ALLERGIES No Information SOCIAL HISTORY Never Assessed PLAN OF CARE VITAL SIGNS MEDICATIONS Medication Instructions Dosage Frequency Start Date End Date Duration Status Naproxen 500 MG Orally every 12 hrs 1 tablet as needed 12h 14 Jun, 2016 Active RESULTS No Results PROCEDURES No Known procedures IMMUNIZATIONS No Known Immunizations MEDICAL (GENERAL) HISTORY Type Description Date Medical History hepatitis C (completed 24 weeks Sovalidi/Ribipack 01/2015) Medical History DVT 11/2012 s/p knee surgery Medical History hx of PVCs Medical History anxiety Medical History mood disorder Medical History allergic rhinitis w/ recurrent sinus infections Medical History hyperthyroidism Medical History hx IVDU--last used 2004 Surgical History left knee suregry 11/2012 Surgical History liver biopsy- Hepatits C 2006 Surgical History tubal ligation 10/2015 Hospitalization History DVT after knee surgery 11/2012
--- OUTSIDE RECORDS SUMMARY | 2017-05-24 14:48 | XMS REPORT ---
Author Author SARAH MCGOWAN [facility] Address [address] [place] [address] Care Team Providers Care Outdoor Pursuits Instructor Name Role Phone SARAH MCGOWAN Unavailable PROBLEMS Type Condition ICD9-CM Code ONB82-BV Code Onset Dates Condition Status SNOMED Code Problem Rheumatoid arthritis involving knee, unspecified laterality, unspecified rheumatoid factor presence M06.069 Active 584120271 Problem Primary insomnia F51.01 Active 318198113 Problem Low back pain M54.5 Active 923991834 Problem HPV (human papilloma virus) anogenital infection A63.0 Active 934351573 Problem Atrial fibrillation, unspecified type I48.91 Active 75502292 Problem Hepatitis C, chronic B18.2 Active 161306584 Problem DVT (deep venous thrombosis), unspecified laterality I82.409 Active 787383522 ALLERGIES No Known Allergies SOCIAL HISTORY Never Assessed PLAN OF CARE VITAL SIGNS Height 64 in 2016-06-11 Weight 197.4 lbs 2016-06-11 Temperature 98.3 degrees Fahrenheit 2016-06-11 Heart Rate 76 bpm 2016-06-11 Respiratory Rate 20 2016-06-11 BMI 33.88 kg/m2 2016-06-11 Blood pressure systolic 124 mmHg 2016-06-11 Blood pressure diastolic 82 mmHg 2016-06-11 MEDICATIONS Medication Instructions Dosage Frequency Start Date End Date Duration Status Aleve 220 MG Orally every 12 hrs 1 tablet as needed 12h Active Turmeric Curcumin - Active Vistaril 25 MG Orally every 8 hrs 1 capsule as needed 8h Active Claritin 10 MG Orally Once a day 1 tablet 24h Active Fluticasone Propionate 50 MCG/ACT Nasally Once a day 1-2 spray in each nostril 24h Mar, 30 day(s) Active Metoprolol Tartrate 25 MG Orally Twice a day 1 tablet 12h Active RESULTS Name Result Date Reference Range MRI : Cervical w/o Contrast 2016-06-18 PROCEDURES No Known procedures IMMUNIZATIONS No Known [...]
--- OUTSIDE RECORDS SUMMARY | 2017-05-24 14:49 | XMS REPORT ---
Author Author SARAH MCGOWAN [facility] Address [address] [place] [address] Care Team Providers Care Short Story Writer Name Role Phone SARAH MCGOWAN Unavailable PROBLEMS Type Condition ICD9-CM Code [id number] Code Onset Dates Condition Status SNOMED Code Problem Rheumatoid arthritis involving knee, unspecified laterality, unspecified rheumatoid factor presence M06.069 Active 916035244 Problem Primary insomnia F51.01 Active 027737590 Problem Low back pain M54.5 Active 598588888 Problem HPV (human papilloma virus) anogenital infection A63.0 Active 451957052 Problem Atrial fibrillation, unspecified type I48.91 Active 49135718 Problem Hepatitis C, chronic B18.2 Active 300866246 Problem DVT (deep venous thrombosis), unspecified laterality I82.409 Active 797132222 ALLERGIES Unknown Allergies SOCIAL HISTORY No smoking Hx information available PLAN OF CARE VITAL SIGNS MEDICATIONS Medication Instructions Dosage Frequency Start Date End Date Duration Status Vistaril 25 MG Orally every 8 hrs 1 capsule as needed 8h Active RESULTS No Results PROCEDURES No Known procedures IMMUNIZATIONS No Known Immunizations
--- OUTSIDE RECORDS SUMMARY | 2017-05-24 14:49 | XMS REPORT ---
Author Author LYNDSEY REYNOLDS Organization [facility] Address [address] [place] [address] Care Team Providers Care Psychological Examiner Name Role Phone LYNDSEY REYNOLDS Unavailable PROBLEMS Type Condition ICD9-CM Code [id number] Code Onset Dates Condition Status SNOMED Code Problem Hepatitis C, chronic B18.2 Active 833059721 Problem HPV (human papilloma virus) anogenital infection A63.0 Active 740429446 Problem DVT (deep venous thrombosis), unspecified laterality I82.409 Active 491283675 Problem Atrial fibrillation, unspecified type I48.91 Active 66706389 Problem Rheumatoid arthritis involving knee, unspecified laterality, unspecified rheumatoid factor presence M06.069 Active 215494365 Problem Low back pain M54.5 Active 389348905 Problem Primary insomnia F51.01 Active 292564693 ALLERGIES Substance Reaction Event Type Date Status N.K.D.A. Unknown Non Drug Allergy Apr, Unknown SOCIAL HISTORY No smoking Hx information available PLAN OF CARE Activity Details Follow Up prn Reason: VITAL SIGNS Height 64 in 2016-04-20 Weight 193.8 lbs 2016-04-20 Temperature 98.1 degrees Fahrenheit 2016-04-20 Heart Rate 84 bpm 2016-04-20 Respiratory Rate 20 2016-04-20 BMI 33.26 kg/m2 2016-04-20 Blood pressure systolic 116 mmHg 2016-04-20 Blood pressure diastolic 76 mmHg 2016-04-20 MEDICATIONS Medication Instructions Dosage Frequency Start Date End Date Duration Status Mucinex 600 MG Orally every 12 hrs 1 tablet as needed 12h Apr, Apr, 7 days Active Fluticasone Propionate 50 MCG/ACT Nasally Once a day 1-2 spray in each nostril 24h Mar, 30 day(s) Active Doxycycline Hyclate 100 MG Orally every 12 hrs 1 capsule 12h Apr, Apr, 10 days Active Metoprolol Tartrate 25 MG Orally Twice a day 1 tablet 12h 30 Active Zyrtec Allergy 10 MG Orally Once a day 1 tablet 24h Apr, May, 30 day(s) Active Vistaril 25 MG Orally every 8 hrs 1 capsule as needed 8h Active RESULTS No Results PROCEDURES Procedure Date Ordered Related Diagnosis Body Site Office Visit, Est Pt., Level 3 Apr 20, 2016 DEPO MEDROL 40 MG/ML Apr 20, 2016 DEXAMETHASONE 4MG/ML (PER 1 MG) Apr 20, 2016 THER/PROPH/DIAG INJ, SC/IM Apr 20, 2016 IMMUNIZATIONS Vaccine Route Administration Date Status DEXAMETHASONE 4MG/ML (PER 1 MG) Unknown Apr 20, 2016 Administered DEPO MEDROL 40 MG/ML IM Intramuscular Apr 20, 2016 Administered
--- OUTSIDE RECORDS SUMMARY | 2017-05-24 14:49 | XMS REPORT ---
Author Author TYREE AMAYA Organization [facility] Address [address] [place] [address] Care Team Providers Care Process Safety Specialist Name Role Phone TYREE AMAYA Unavailable PROBLEMS Type Condition ICD9-CM Code WCP51-TA Code Onset Dates Condition Status SNOMED Code Problem Rheumatoid arthritis involving knee, unspecified laterality, unspecified rheumatoid factor presence M06.069 Active 278187160 Problem Primary insomnia F51.01 Active 023991888 Problem Low back pain M54.5 Active 637951778 Problem HPV (human papilloma virus) anogenital infection A63.0 Active 501901878 Problem Atrial fibrillation, unspecified type I48.91 Active 76952790 Problem Hepatitis C, chronic B18.2 Active 752721833 Problem DVT (deep venous thrombosis), unspecified laterality I82.409 Active 436911249 ALLERGIES Substance Reaction Event Type Date Status N.K.D.A. Unknown Non Drug Allergy May, Unknown SOCIAL HISTORY No smoking Hx information available PLAN OF CARE Activity Details Follow Up prn Reason: VITAL SIGNS Height 64 in 2016-05-27 Weight 194.6 lbs 2016-05-27 Temperature 97.6 degrees Fahrenheit 2016-05-27 Heart Rate 80 bpm 2016-05-27 Respiratory Rate 18 2016-05-27 BMI 33.40 kg/m2 2016-05-27 Blood pressure systolic 128 mmHg 2016-05-27 Blood pressure diastolic 82 mmHg 2016-05-27 MEDICATIONS Medication Instructions Dosage Frequency Start Date End Date Duration Status Fluticasone Propionate 50 MCG/ACT Nasally Once a day 1-2 spray in each nostril 24h Mar, 30 day(s) Active Metoprolol Tartrate 25 MG Orally Twice a day 1 tablet 12h 30 Active Augmentin 875-125 MG Orally every 12 hrs 1 tablet 12h May, Jun, 10 day(s) Active Vistaril 25 MG Orally every 8 hrs 1 capsule as needed 8h Active RESULTS No Results PROCEDURES Procedure Date Ordered Related Diagnosis Body Site Office Visit, Est Pt., Level 3 May 27, 2016 IMMUNIZATIONS No Known Immunizations
--- OUTSIDE RECORDS SUMMARY | 2017-05-24 14:49 | XMS REPORT ---
Author Author SARAH MCGOWAN [facility] Address [address] [place] [address] Care Team Providers Care Inventory Control Coordinator Name Role Phone JUAN MSARAH Unavailable PROBLEMS Type Condition ICD9-CM Code ZNN77-YA Code Onset Dates Condition Status SNOMED Code Problem Rheumatoid arthritis involving knee, unspecified laterality, unspecified rheumatoid factor presence M06.069 Active 504001349 Problem Primary insomnia F51.01 Active 893494372 Problem Low back pain M54.5 Active 562026083 Problem HPV (human papilloma virus) anogenital infection A63.0 Active 996413080 Problem Atrial fibrillation, unspecified type I48.91 Active 42787417 Problem Hepatitis C, chronic B18.2 Active 470555463 Problem DVT (deep venous thrombosis), unspecified laterality I82.409 Active 118686042 ALLERGIES No Information SOCIAL HISTORY Never Assessed PLAN OF CARE VITAL SIGNS MEDICATIONS Unknown Medications RESULTS Name Result Date Reference Range CBC 2016-06-19 WBC 11.6 3.4-10.8 RBC 4.94 3.77-5.28 Hemoglobin 14.6 11.1-15.9 Hematocrit 43.5 34.0-46.6 MCV 88 79-97 MCH 29.6 26.6-33.0 MCHC 33.6 31.5-35.7 RDW 13.2 12.3-15.4 Platelets 317 150-379 Neutrophils 64 Lymphs 29 Monocytes 6 Eos 1 Basos 0 Neutrophils (Absolute) 7.4 1.4-7.0 Lymphs (Absolute) 3.4 0.7-3.1 Monocytes(Absolute) 0.7 0.1-0.9 Eos (Absolute) 0.1 0.0-0.4 Baso (Absolute) 0.0 0.0-0.2 Immature Granulocytes 0 Immature Grans (Abs) 0.0 0.0-0.1 LIPID PANEL 2016-06-19 Cholesterol, Total 190 100-199 Triglycerides 150 0-149 HDL Cholesterol 54 >39 VLDL Cholesterol Rufino 30 5-40 LDL Cholesterol Calc 106 0-99 Comment: CMP 2016-06-19 Glucose, Serum 83 65-99 BUN 13 6-20 Creatinine, Serum 0.64 0.57-1.00 eGFR If NonAfricn Am 114 >59 eGFR If Africn Am 131 >59 BUN/Creatinine Ratio 20 8-20 Sodium, Serum 140 134-144 Potassium, Serum 3.9 3.5-5.2 Chloride, Serum 101 96-106 Carbon Dioxide, Total 22 18-29 Calcium, Serum 8.9 8.7-10.2 Protein, Total, Serum 7.0 6.0-8.5 Albumin, Serum 4.4 3.5-5.5 Globulin, Total 2.6 1.5-4.5 A/G Ratio 1.7 1.1-2.5 Bilirubin, Total 1.3 0.0-1.2 Alkaline Phosphatase, S 44 39-117 AST (SGOT) 12 0-40 ALT (SGPT) 11 0-32 PROCEDURES Procedure Date Ordered Result Body Site LAB NOT BILLED BY [facility] Jun 19, 2016 VENIPUNCT, ROUTINE* Jun 19, 2016 IMMUNIZATIONS No Known Immunizations MEDICAL (GENERAL) HISTORY [...]
--- OUTSIDE RECORDS SUMMARY | 2017-05-24 14:50 | XMS REPORT ---
Author Author SARAH MCGOWAN Organization [facility] Address [address] [place] [address] Care Team Providers Care Edge Banding Off Bearer Name Role Phone SARAH MCGOWAN Unavailable PROBLEMS Type Condition ICD9-CM Code SOT43-YE Code Onset Dates Condition Status SNOMED Code Problem Rheumatoid arthritis involving knee, unspecified laterality, unspecified rheumatoid factor presence M06.069 Active 525585763 Problem Primary insomnia F51.01 Active 787262210 Problem Low back pain M54.5 Active 308020128 Problem HPV (human papilloma virus) anogenital infection A63.0 Active 309164872 Problem Atrial fibrillation, unspecified type I48.91 Active 25720318 Problem Hepatitis C, chronic B18.2 Active 740362902 Problem DVT (deep venous thrombosis), unspecified laterality I82.409 Active 203363791 ALLERGIES No Information SOCIAL HISTORY Never Assessed PLAN OF CARE VITAL SIGNS MEDICATIONS Unknown Medications RESULTS No Results PROCEDURES No Known procedures [...]
--- OUTSIDE RECORDS SUMMARY | 2017-05-24 14:56 | XMS REPORT | Continuity of Care Document ---
Author Author [facility] Address Unknown Phone Unavailable Allergies Active Description Code Type Severity Reaction Onset Reported/Identified Relationship to Patient Clinical Status Yes No Known Drug Allergies [id number] Drug Allergy Unknown N/A 08/19/2016 Medications There is no data. Problems Date Dx Coded Attending Type Code Diagnosis Diagnosed By 02/20/2008 EFRA LARA APRN 599.0 Urinary Tract Infection 02/20/2008 CARNEY DO, NIK K 599.0 Urinary Tract Infection 02/20/2008 599.0 Urinary Tract Infection 02/20/2008 599.0 Urinary Tract Infection 02/20/2008 599.0 Urinary Tract Infection 02/20/2008 599.0 Urinary Tract Infection 02/20/2008 599.0 Urinary Tract Infection 02/20/2008 599.0 Urinary Tract Infection 02/20/2008 599.0 Urinary Tract Infection 02/20/2008 599.0 Urinary Tract Infection 02/20/2008 599.0 Urinary Tract Infection 02/20/2008 599.0 Urinary Tract Infection 02/20/2008 CARNEY DO, NIK K 599.0 Urinary Tract Infection 02/20/2008 CARNEY DO, NIK K 599.0 Urinary Tract Infection 02/20/2008 CARNEY DO, NIK K 599.0 Urinary Tract Infection 02/20/2008 CARNEY DO, NIK K 599.0 Urinary Tract Infection 02/20/2008 CARNEY DO, NIK K 599.0 Urinary Tract Infection 02/20/2008 CARNEY DO, NIK K 599.0 Urinary Tract Infection 02/20/2008 CARNEY DO, NIK K 599.0 Urinary Tract Infection 02/20/2008 CARNEY DO, NIK K 599.0 Urinary Tract Infection 02/20/2008 CARNEY DO, NIK K 599.0 Urinary Tract Infection 02/20/2008 CARNEY DO, NIK K 599.0 Urinary Tract Infection 02/20/2008 CARNEY DO, NIK K 599.0 Urinary Tract Infection 02/20/2008 CARNEY DO, NIK K 599.0 Urinary Tract Infection 02/20/2008 CARNEY DO, NIK K 599.0 Urinary Tract Infection 02/20/2008 CARNEY DO, NIK K 599.0 Urinary Tract Infection 02/20/2008 CARNEY DO, NIK K 599.0 Urinary Tract Infection 02/20/2008 CARNEY DO, NIK K 599.0 Urinary Tract Infection 02/20/2008 CARNEY DO, NIK K 599.0 Urinary Tract Infection 02/20/2008 CONCEPCIÓN [employer] CREW SUPERVISOR, RACHEL A 599.0 Urinary Tract Infection 02/20/2008 CONCEPCIÓN GROUN[employer] CREW SUPERVISOR, RACHEL A 599.0 Urinary Tract Infection 02/20/2008 CONCEPCIÓN GR[employer] CREW SUPERVISOR, RACHEL A 599.0 Urinary Tract Infection 02/20/2008 CARNEY DO, NIK K 599.0 Urinary Tract Infection 02/20/2008 CARNEY DO, NIK K 599.0 Urinary Tract Infection 02/20/2008 CARNEY DO, NIK K 599.0 Urinary Tract Infection 02/20/2008 CARNEY DO, NIK K 599.0 Urinary Tract Infection 02/20/2008 IZABELLA PEREA, SARA Rahman 599.0 Urinary Tract Infection 05/13/2008 EFRA LARA APRN 465.9 Upper Respiratory Infection 05/13/2008 CARNEY DO, NIK K 465.9 Upper Respiratory Infection 05/13/2008 465.9 Upper Respiratory Infection 05/13/2008 465.9 Upper Respiratory Infection 05/13/2008 465.9 Upper Respiratory Infection 05/13/2008 465.9 Upper Respiratory Infection 05/13/2008 465.9 Upper Respiratory Infection 05/13/2008 465.9 Upper Respiratory Infection 05/13/2008 465.9 Upper Respiratory Infection 05/13/2008 465.9 Upper Respiratory Infection 05/13/2008 465.9 Upper Respiratory Infection 05/13/2008 465.9 Upper Respiratory Infection 05/13/2008 CARNEY DO, NIK K 465.9 Upper Respiratory Infection 05/13/2008 CARNEY DO, NIK K 465.9 Upper Respiratory Infection 05/13/2008 CARNEY DO, NIK K 465.9 Upper Respiratory Infection 05/13/2008 CARNEY DO, NIK K 465.9 Upper Respiratory Infection 05/13/2008 CARNEY DO, NIK K 465.9 Upper Respiratory Infection 05/13/2008 CARNEY DO, NIK K 465.9 Upper Respiratory Infection 05/13/2008 CARNEY DO, NIK K 465.9 Upper Respiratory Infection 05/13/2008 CARNEY DO, NIK K 465.9 Upper Respiratory Infection 05/13/2008 CARNEY DO, NIK K 465.9 Upper Respiratory Infection 05/13/2008 CARNEY DO, NIK K 465.9 Upper Respiratory Infection 05/13/2008 CARNEY DO, NIK K 465.9 Upper Respiratory Infection 05/13/2008 CARNEY DO, NIK K 465.9 Upper Respiratory Infection 05/13/2008 CARNEY DO, NIK K 465.9 Upper Respiratory Infection 05/13/2008 CARNEY DO, NIK K 465.9 Upper Respiratory Infection 05/13/2008 CARNEY DO, NIK K 465.9 Upper Respiratory Infection 05/13/2008 CARNEY DO, NIK K 465.9 Upper Respiratory Infection 05/13/2008 CARNEY DO, NIK K 465.9 Upper Respiratory Infection 05/13/2008 CONCE[employer] SUPERVISOR, RACHEL A 465.9 Upper Respiratory Infection 05/13/2008 CONCEPCIÓN [employer]OUN[employer] CREW SUPERVISOR, RACHEL A 465.9 Upper Respiratory Infection 05/13/2008 CONCEPCIÓ[employer]OUN[employer] CREW SUPERVISOR, RACHEL A 465.9 Upper Respiratory Infection 05/13/2008 CARNEY DO, NIK K 465.9 Upper Respiratory Infection 05/13/2008 CARNEY DO, NIK K 465.9 Upper Respiratory Infection 05/13/2008 CARNEY DO, NIK K 465.9 Upper Respiratory Infection 05/13/2008 CARNEY DO, NIK K 465.9 Upper Respiratory Infection 05/13/2008 SARA PAREKH MD 465.9 Upper Respiratory Infection 07/15/2008 EFRA LARA APRN S 070.54 HEPATITIS C CHRONIC 07/15/2008 EFRA LARA APRN S 462 Pharyngitis Acute 07/15/2008 CARNEY DO, NIK K 070.54 HEPATITIS C CHRONIC 07/15/2008 CARNEY DO, NIK K 462 Pharyngitis Acute 07/15/2008 070.54 HEPATITIS C CHRONIC 07/15/2008 462 Pharyngitis Acute 07/15/2008 070.54 HEPATITIS C CHRONIC 07/15/2008 462 Pharyngitis Acute 07/15/2008 070.54 HEPATITIS C CHRONIC 07/15/2008 462 Pharyngitis Acute 07/15/2008 070.54 HEPATITIS C CHRONIC 07/15/2008 462 Pharyngitis Acute 07/15/2008 070.54 HEPATITIS C CHRONIC 07/15/2008 462 Pharyngitis Acute 07/15/2008 070.54 HEPATITIS C CHRONIC 07/15/2008 462 Pharyngitis Acute 07/15/2008 070.54 HEPATITIS C CHRONIC 07/15/2008 462 Pharyngitis Acute 07/15/2008 070.54 HEPATITIS C CHRONIC 07/15/2008 462 Pharyngitis Acute 07/15/2008 070.54 HEPATITIS C CHRONIC 07/15/2008 462 Pharyngitis Acute 07/15/2008 070.54 HEPATITIS C CHRONIC 07/15/2008 462 Pharyngitis Acute 07/15/2008 CARNEY DO, NIK K 070.54 HEPATITIS C CHRONIC 07/15/2008 CARNEY DO, NIK K 462 Pharyngitis Acute 07/15/2008 CARNEY DO, NIK K 070.54 HEPATITIS C CHRONIC 07/15/2008 CARNEY DO, NIK K 462 Pharyngitis Acute 07/15/2008 CARNEY DO, NIK K 070.54 HEPATITIS C CHRONIC 07/15/2008 CARNEY DO, NIK K 462 Pharyngitis Acute 07/15/2008 CARNEY DO, NIK K 070.54 HEPATITIS C CHRONIC 07/15/2008 CARNEY DO, NIK K 462 Pharyngitis Acute 07/15/2008 CARNEY DO, NIK K 070.54 HEPATITIS C CHRONIC 07/15/2008 CARNEY DO, NIK K 462 Pharyngitis Acute 07/15/2008 CARNEY DO, NIK K 070.54 HEPATITIS C CHRONIC 07/15/2008 CARNEY DO, NIK K 462 Pharyngitis Acute 07/15/2008 CARNEY DO, NIK K 070.54 HEPATITIS C CHRONIC 07/15/2008 CARNEY DO, NIK K 462 Pharyngitis Acute 07/15/2008 CARNEY DO, NIK K 070.54 HEPATITIS C CHRONIC 07/15/2008 CARNEY DO, NIK K 462 Pharyngitis Acute 07/15/2008 CARNEY DO, NIK K 070.54 HEPATITIS C CHRONIC 07/15/2008 CARNEY DO, NIK K 462 Pharyngitis Acute 07/15/2008 CARNEY DO, NIK K 070.54 HEPATITIS C CHRONIC 07/15/2008 CARNEY DO, NIK K 462 Pharyngitis Acute 07/15/2008 CARNEY DO, NIK K 070.54 HEPATITIS C CHRONIC 07/15/2008 CARNEY DO, NIK K 462 Pharyngitis Acute 07/15/2008 CARNEY DO, NIK K 070.54 HEPATITIS C CHRONIC 07/15/2008 CARNEY DO, NIK K 462 Pharyngitis Acute 07/15/2008 CARNEY DO, NIK K 070.54 HEPATITIS C CHRONIC 07/15/2008 CARNEY DO, NIK K 462 Pharyngitis Acute 07/15/2008 CARNEY DO, NIK K 070.54 HEPATITIS C CHRONIC 07/15/2008 CARNEY DO, NIK K 462 Pharyngitis Acute 07/15/2008 CARNEY DO, NIK K 070.54 HEPATITIS C CHRONIC 07/15/2008 CARNEY DO, NIK K 462 Pharyngitis Acute 07/15/2008 CARNEY DO, NIK K 070.54 HEPATITIS C CHRONIC 07/15/2008 CARNEY DO, NIK K 462 Pharyngitis Acute 07/15/2008 CARNEY DO, NIK K 070.54 HEPATITIS C CHRONIC 07/15/2008 CARNEY DO, NIK K 462 Pharyngitis Acute 07/15/2008 CONCEPCIÓ[employer] SUPERVISOR, RACHEL A 070.54 HEPATITIS C CHRONIC 07/15/2008 CONCEPCI[employer] SUPERVISOR, RACHEL A 462 Pharyngitis Acute 07/15/2008 CONCEPCIÓ[employer] CREW SUPERVISOR, RACHEL A 070.54 HEPATITIS C CHRONIC 07/15/2008 CONCEPCIÓ[employer]OUN[employer] CREW SUPERVISOR, RACHEL A 462 Pharyngitis Acute 07/15/2008 CONCEPCIÓN GROUN[employer] CREW SUPERVISOR, RACHEL A 070.54 HEPATITIS C CHRONIC 07/15/2008 CONCEPCIÓN GROUN[employer] CREW SUPERVISOR, RACHEL A 462 Pharyngitis Acute 07/15/2008 CARNEY DO, NIK K 070.54 HEPATITIS C CHRONIC 07/15/2008 CARNEY DO, NIK K 462 Pharyngitis Acute 07/15/2008 CARNEY DO, NIK K 070.54 HEPATITIS C CHRONIC 07/15/2008 CARNEY DO, NIK K 462 Pharyngitis Acute 07/15/2008 CARNEY DO, NIK K 070.54 HEPATITIS C CHRONIC 07/15/2008 CARNEY DO, NIK K 462 Pharyngitis Acute 07/15/2008 CARNEY DO, NIK K 070.54 HEPATITIS C CHRONIC 07/15/2008 CARNEY DO, NIK K 462 Pharyngitis Acute 07/15/2008 SARA PAREKH MD 070.54 HEPATITIS C CHRONIC 07/15/2008 SARA PAREKH MD 462 Pharyngitis Acute 07/31/2008 EFRA LARA APRN 386.30 Labyrinthitis Unspecified 07/31/2008 CARNEY DO, NIK K 386.30 Labyrinthitis Unspecified 07/31/2008 386.30 Labyrinthitis Unspecified 07/31/2008 386.30 Labyrinthitis Unspecified 07/31/2008 386.30 Labyrinthitis Unspecified 07/31/2008 386.30 Labyrinthitis Unspecified 07/31/2008 386.30 Labyrinthitis Unspecified 07/31/2008 386.30 Labyrinthitis Unspecified 07/31/2008 386.30 Labyrinthitis Unspecified 07/31/2008 386.30 Labyrinthitis Unspecified 07/31/2008 386.30 Labyrinthitis Unspecified 07/31/2008 386.30 Labyrinthitis Unspecified 07/31/2008 CARNEY DO, NIK K 386.30 Labyrinthitis Unspecified 07/31/2008 CARNEY DO, NIK K 386.30 Labyrinthitis Unspecified 07/31/2008 CARNEY DO, NIK K 386.30 Labyrinthitis Unspecified 07/31/2008 CARNEY DO, INK K 386.30 Labyrinthitis Unspecified 07/31/2008 CARNEY DO, NIK K 386.30 Labyrinthitis Unspecified 07/31/2008 CARNEY DO, NIK K 386.30 Labyrinthitis Unspecified 07/31/2008 CARNEY DO, NIK K 386.30 Labyrinthitis Unspecified 07/31/2008 CARNEY DO, NIK K 386.30 Labyrinthitis Unspecified 07/31/2008 CARNEY DO, NIK K 386.30 Labyrinthitis Unspecified 07/31/2008 CARNEY DO, NIK K 386.30 Labyrinthitis Unspecified 07/31/2008 CARNEY DO, NIK K 386.30 Labyrinthitis Unspecified 07/31/2008 CARNEY DO, NIK K 386.30 Labyrinthitis Unspecified 07/31/2008 CARNEY DO, NIK K 386.30 Labyrinthitis Unspecified 07/31/2008 CARNEY DO, NIK K 386.30 Labyrinthitis Unspecified 07/31/2008 CARNEY DO, NIK K 386.30 Labyrinthitis Unspecified 07/31/2008 CARNEY DO, NIK K 386.30 Labyrinthitis Unspecified 07/31/2008 CARNEY DO, NIK K 386.30 Labyrinthitis Unspecified 07/31/2008 CONCE[employer] SUPERVISOR, RACHEL A 386.30 Labyrinthitis Unspecified 07/31/2008 CONCEPCIÓN GROUN[employer] CREW SUPERVISOR, RACHEL A 386.30 Labyrinthitis Unspecified 07/31/2008 CONCEPCIÓ[employer]W SUPERVISOR, RACHEL A 386.30 Labyrinthitis Unspecified 07/31/2008 CARNEY DO, NIK K 386.30 Labyrinthitis Unspecified 07/31/2008 CARNEY DO, NIK K 386.30 Labyrinthitis Unspecified 07/31/2008 CARNEY DO, NIK K 386.30 Labyrinthitis Unspecified 07/31/2008 CARNEY DO, NIK K 386.30 Labyrinthitis Unspecified 07/31/2008 IZABELLA PEREA, SARA Rahman 386.30 Labyrinthitis Unspecified 09/18/2008 EFRA LARA APRN 054.10 Herpes Simplex Genital 09/18/2008 CARNEY DO NIK K 054.10 Herpes Simplex Genital 09/18/2008 054.10 Herpes Simplex Genital 09/18/2008 054.10 Herpes Simplex Genital 09/18/2008 054.10 Herpes Simplex Genital 09/18/2008 054.10 Herpes Simplex Genital 09/18/2008 054.10 Herpes Simplex Genital 09/18/2008 054.10 Herpes Simplex Genital 09/18/2008 054.10 Herpes Simplex Genital 09/18/2008 054.10 Herpes Simplex Genital 09/18/2008 054.10 Herpes Simplex Genital 09/18/2008 054.10 Herpes Simplex Genital 09/18/2008 CARNEY DO NIK K 054.10 Herpes Simplex Genital 09/18/2008 CARNEY DO NIK K 054.10 Herpes Simplex Genital 09/18/2008 CARNEY DO, NIK K 054.10 Herpes Simplex Genital 09/18/2008 CARNEY DO, NIK K 054.10 Herpes Simplex Genital 09/18/2008 CARNEY DO, NIK K 054.10 Herpes Simplex Genital 09/18/2008 CARNEY DO, NIK K 054.10 Herpes Simplex Genital 09/18/2008 CARNEY DO, NIK K 054.10 Herpes Simplex Genital 09/18/2008 CARNEY DO, NIK K 054.10 Herpes Simplex Genital 09/18/2008 CARNEY DO, NIK K 054.10 Herpes Simplex Genital 09/18/2008 CARNEY DO, NIK K 054.10 Herpes Simplex Genital 09/18/2008 CARNEY DO, NIK K 054.10 Herpes Simplex Genital 09/18/2008 CARNEY DO, NIK K 054.10 Herpes Simplex Genital 09/18/2008 CARNEY DO, NIK K 054.10 Herpes Simplex Genital 09/18/2008 CARNEY DO, NIK K 054.10 Herpes Simplex Genital 09/18/2008 CARNEY DO, NIK K 054.10 Herpes Simplex Genital 09/18/2008 CARNEY DO, NIK K 054.10 Herpes Simplex Genital 09/18/2008 CARNEY DO, NIK K 054.10 Herpes Simplex Genital 09/18/2008 CONCE[employer] SUPERVISOR, RACHEL A 054.10 Herpes Simplex Genital 09/18/2008 CONCEPCIÓN [employer]W SUPERVISOR, RACHEL A 054.10 Herpes Simplex Genital 09/18/2008 CONCEPCIÓ[employer]W SUPERVISOR, RACHEL A 054.10 Herpes Simplex Genital 09/18/2008 CARNEY DO, NIK K 054.10 Herpes Simplex Genital 09/18/2008 CARNEY DO, NIK K 054.10 Herpes Simplex Genital 09/18/2008 CARNEY DO, NIK K 054.10 Herpes Simplex Genital 09/18/2008 CARNEY DO, NIK K 054.10 Herpes Simplex Genital 09/18/2008 IZABELLA PEREA, SARA N 054.10 Herpes Simplex Genital 04/25/2009 EFRA LARA APRN 780.79 Feelings Of Weakness 04/25/2009 CARNEY DO, INK K 780.79 Feelings Of Weakness 04/25/2009 780.79 Feelings Of Weakness 04/25/2009 780.79 Feelings Of Weakness 04/25/2009 780.79 Feelings Of Weakness 04/25/2009 780.79 Feelings Of Weakness 04/25/2009 780.79 Feelings Of Weakness 04/25/2009 780.79 Feelings Of Weakness 04/25/2009 780.79 Feelings Of Weakness 04/25/2009 780.79 Feelings Of Weakness 04/25/2009 780.79 Feelings Of Weakness 04/25/2009 780.79 Feelings Of Weakness 04/25/2009 CARNEY DO, NIK K 780.79 Feelings Of Weakness 04/25/2009 CARNEY DO, NIK K 780.79 Feelings Of Weakness 04/25/2009 CARNEY DO, NIK K 780.79 Feelings Of Weakness 04/25/2009 CARNEY DO, NIK K 780.79 Feelings Of Weakness 04/25/2009 CARNEY DO, NIK K 780.79 Feelings Of Weakness 04/25/2009 CARNEY DO, NIK K 780.79 Feelings Of Weakness 04/25/2009 CARNEY DO, NIK K 780.79 Feelings Of Weakness 04/25/2009 CARNEY DO, NIK K 780.79 Feelings Of Weakness 04/25/2009 CARNEY DO, NIK K 780.79 Feelings Of Weakness 04/25/2009 CARNEY DO, NIK K 780.79 Feelings Of Weakness 04/25/2009 CARNEY DO, NIK K 780.79 Feelings Of Weakness 04/25/2009 CARNEY DO, NIK K 780.79 Feelings Of Weakness 04/25/2009 CARNEY DO, NIK K 780.79 Feelings Of Weakness 04/25/2009 CARNEY DO, NIK K 780.79 Feelings Of Weakness 04/25/2009 CARNEY DO, NIK K 780.79 Feelings Of Weakness 04/25/2009 CARNEY DO, NIK K 780.79 Feelings Of Weakness 04/25/2009 CARNEY DO, NIK K 780.79 Feelings Of Weakness 04/25/2009 CONCEPCIÓN ADAMSN RACHEL A 780.79 Feelings Of Weakness 04/25/2009 CONCEPCIÓN [employer] SUPERVISOR, RACHEL A 780.79 Feelings Of Weakness 04/25/2009 CONCEPCIÓN [employer] SUPERVISOR, RACHEL A 780.79 Feelings Of Weakness 04/25/2009 CARNEY DO, NIK K 780.79 Feelings Of Weakness 04/25/2009 CARNEY DO, NIK K 780.79 Feelings Of Weakness 04/25/2009 CARNEY DO, NIK K 780.79 Feelings Of Weakness 04/25/2009 CARNEY DO, NIK K 780.79 Feelings Of Weakness 04/25/2009 IZABELLA PEREA, SARA Rahman 780.79 Feelings Of Weakness 06/13/2009 EFRA LARA APRN 616.10 Vaginitis 06/13/2009 CARNEY DO, NIK K 616.10 Vaginitis 06/13/2009 616.10 Vaginitis 06/13/2009 616.10 Vaginitis 06/13/2009 616.10 Vaginitis 06/13/2009 616.10 Vaginitis 06/13/2009 616.10 Vaginitis 06/13/2009 616.10 Vaginitis 06/13/2009 616.10 Vaginitis 06/13/2009 616.10 Vaginitis 06/13/2009 616.10 Vaginitis 06/13/2009 616.10 Vaginitis 06/13/2009 CARNEY DO, NIK K 616.10 Vaginitis 06/13/2009 CARNEY DO, NIK K 616.10 Vaginitis 06/13/2009 CARNEY DO, NIK K 616.10 Vaginitis 06/13/2009 CARNEY DO, NIK K 616.10 Vaginitis 06/13/2009 CARNEY DO, NIK K 616.10 Vaginitis 06/13/2009 CARNEY DO, NIK K 616.10 Vaginitis 06/13/2009 CARNEY DO, NIK K 616.10 Vaginitis 06/13/2009 CARNEY DO, NIK K 616.10 Vaginitis 06/13/2009 CARNEY DO, NIK K 616.10 Vaginitis 06/13/2009 CARNEY DO, NIK K 616.10 Vaginitis 06/13/2009 CARNEY DO, NIK K 616.10 Vaginitis 06/13/2009 CARNEY DO, NIK K 616.10 Vaginitis 06/13/2009 CARNEY DO, NIK K 616.10 Vaginitis 06/13/2009 CARNEY DO, NIK K 616.10 Vaginitis 06/13/2009 CARNEY DO, NIK K 616.10 Vaginitis 06/13/2009 CARNEY DO, NIK K 616.10 Vaginitis 06/13/2009 CARNEY DO, NIK K 616.10 Vaginitis 06/13/2009 CONCE[employer] SUPERVISOR, RACHEL A 616.10 Vaginitis 06/13/2009 CONCE[employer]ÓN [employer] SUPERVISOR, RACHEL A 616.10 Vaginitis 06/13/2009 CONCEPCIÓN NUR, RACHEL A 616.10 Vaginitis 06/13/2009 CARNEY DO, NIK K 616.10 Vaginitis 06/13/2009 CARNEY DO, INK K 616.10 Vaginitis 06/13/2009 CARNEY DO, NIK K 616.10 Vaginitis 06/13/2009 CARNEY DO, NIK K 616.10 Vaginitis 06/13/2009 SARA PAREKH MD 616.10 Vaginitis 09/27/2009 EFRA LARA APRN 461.9 Sinusitis Acute 09/27/2009 CARNEY DO, NIK K 461.9 Sinusitis Acute 09/27/2009 461.9 Sinusitis Acute 09/27/2009 461.9 Sinusitis Acute 09/27/2009 461.9 Sinusitis Acute 09/27/2009 461.9 Sinusitis Acute 09/27/2009 461.9 Sinusitis Acute 09/27/2009 461.9 Sinusitis Acute 09/27/2009 461.9 Sinusitis Acute 09/27/2009 461.9 Sinusitis Acute 09/27/2009 461.9 Sinusitis Acute 09/27/2009 461.9 Sinusitis Acute 09/27/2009 CARNEY DO, NIK K 461.9 Sinusitis Acute 09/27/2009 CARNEY DO, NIK K 461.9 Sinusitis Acute 09/27/2009 CARNEY DO, NIK K 461.9 Sinusitis Acute 09/27/2009 CARNEY DO, NIK K 461.9 Sinusitis Acute 09/27/2009 CARNEY DO, NIK K 461.9 Sinusitis Acute 09/27/2009 CARNEY DO, NIK K 461.9 Sinusitis Acute 09/27/2009 CARNEY DO, NIK K 461.9 Sinusitis Acute 09/27/2009 CARNEY DO, NIK K 461.9 Sinusitis Acute 09/27/2009 CARNEY DO, NKI K 461.9 Sinusitis Acute 09/27/2009 CARNEY DO, NIK K 461.9 Sinusitis Acute 09/27/2009 CARNEY DO, NIK K 461.9 Sinusitis Acute 09/27/2009 CARNEY DO, NIK K 461.9 Sinusitis Acute 09/27/2009 CARNEY DO, NIK K 461.9 Sinusitis Acute 09/27/2009 CARNEY DO, NIK K 461.9 Sinusitis Acute 09/27/2009 CARNEY DO, NIK K 461.9 Sinusitis Acute 09/27/2009 CARNEY DO, NIK K 461.9 Sinusitis Acute 09/27/2009 CARNEY DO, NIK K 461.9 Sinusitis Acute 09/27/2009 CONCE[employer] SUPERVISOR, RACHEL A 461.9 Sinusitis Acute 09/27/2009 [employer]EC[employer] SUPERVISOR, RACHEL A 461.9 Sinusitis Acute 09/27/2009 [employer]CE[employer] SUPERVISOR, RACHEL A 461.9 Sinusitis Acute 09/27/2009 CARNEY DO, NIK K 461.9 Sinusitis Acute 09/27/2009 CARNEY DO, NIK K 461.9 Sinusitis Acute 09/27/2009 CARNEY DO, NIK K 461.9 Sinusitis Acute 09/27/2009 CARNEY DO, NIK K 461.9 Sinusitis Acute 09/27/2009 IZABELLA PEREA, SARA Rahman 461.9 Sinusitis Acute 05/05/2010 JAEN [employer]OUN[employer] SUPERVISOR, EFRA S V25.40 CONTRACEPTIVE SURVEILLANCE UNSPECIFIED 05/05/2010 JANE GROUNDS CRE[employer] SUPERVISOR EFRA S V25.42 Iud Removal 05/05/2010 JANE NUR EFRA S V72.31 OPTICAL INSTRUMENT REPAIRER EXAM, ROUTINE 05/05/2010 CARNEY DO NIK K V25.40 CONTRACEPTIVE SURVEILLANCE UNSPECIFIED 05/05/2010 CARNEY DO NIK K V25.42 Iud Removal 05/05/2010 CARNEY DO NIK K V72.31 OPTICAL INSTRUMENT REPAIRER EXAM, ROUTINE 05/05/2010 V25.40 CONTRACEPTIVE SURVEILLANCE UNSPECIFIED 05/05/2010 V25.42 Iud Removal 05/05/2010 V72.31 OPTICAL INSTRUMENT REPAIRER EXAM, ROUTINE 05/05/2010 V25.40 CONTRACEPTIVE SURVEILLANCE UNSPECIFIED 05/05/2010 V25.42 Iud Removal 05/05/2010 V72.31 OPTICAL INSTRUMENT REPAIRER EXAM, ROUTINE 05/05/2010 V25.40 CONTRACEPTIVE SURVEILLANCE UNSPECIFIED 05/05/2010 V25.42 Iud Removal 05/05/2010 V72.31 OPTICAL INSTRUMENT REPAIRER EXAM, ROUTINE 05/05/2010 V25.40 CONTRACEPTIVE SURVEILLANCE UNSPECIFIED 05/05/2010 V25.42 Iud Removal 05/05/2010 V72.31 OPTICAL INSTRUMENT REPAIRER EXAM, ROUTINE 05/05/2010 V25.40 CONTRACEPTIVE SURVEILLANCE UNSPECIFIED 05/05/2010 V25.42 Iud Removal 05/05/2010 V72.31 OPTICAL INSTRUMENT REPAIRER EXAM, ROUTINE 05/05/2010 V25.40 CONTRACEPTIVE SURVEILLANCE UNSPECIFIED 05/05/2010 V25.42 Iud Removal 05/05/2010 V72.31 OPTICAL INSTRUMENT REPAIRER EXAM, ROUTINE 05/05/2010 V25.40 CONTRACEPTIVE SURVEILLANCE UNSPECIFIED 05/05/2010 V25.42 Iud Removal 05/05/2010 V72.31 OPTICAL INSTRUMENT REPAIRER EXAM, ROUTINE 05/05/2010 V25.40 CONTRACEPTIVE SURVEILLANCE UNSPECIFIED 05/05/2010 V25.42 Iud Removal 05/05/2010 V72.31 OPTICAL INSTRUMENT REPAIRER EXAM, ROUTINE 05/05/2010 V25.40 CONTRACEPTIVE SURVEILLANCE UNSPECIFIED 05/05/2010 V25.42 Iud Removal 05/05/2010 V72.31 OPTICAL INSTRUMENT REPAIRER EXAM, ROUTINE 05/05/2010 V25.40 CONTRACEPTIVE SURVEILLANCE UNSPECIFIED 05/05/2010 V25.42 Iud Removal 05/05/2010 V72.31 OPTICAL INSTRUMENT REPAIRER EXAM, ROUTINE 05/05/2010 CARNEY DO, NIK K V25.40 CONTRACEPTIVE SURVEILLANCE UNSPECIFIED 05/05/2010 CARNEY DO, NIK K V25.42 Iud Removal 05/05/2010 CARNEY DO, NIK K V72.31 OPTICAL INSTRUMENT REPAIRER EXAM, ROUTINE 05/05/2010 CARNEY DO, NIK K V25.40 CONTRACEPTIVE SURVEILLANCE UNSPECIFIED 05/05/2010 CARNEY DO, NIK K V25.42 Iud Removal 05/05/2010 CARNEY DO, NIK K V72.31 OPTICAL INSTRUMENT REPAIRER EXAM, ROUTINE 05/05/2010 CARNEY DO, NIK K V25.40 CONTRACEPTIVE SURVEILLANCE UNSPECIFIED 05/05/2010 CARNEY DO, NIK K V25.42 Iud Removal 05/05/2010 CARNEY DO, NIK K V72.31 OPTICAL INSTRUMENT REPAIRER EXAM, ROUTINE 05/05/2010 CARNEY DO, NIK K V25.40 CONTRACEPTIVE SURVEILLANCE UNSPECIFIED 05/05/2010 CARNEY DO, NIK K V25.42 Iud Removal 05/05/2010 CARNEY DO, NIK K V72.31 OPTICAL INSTRUMENT REPAIRER EXAM, ROUTINE 05/05/2010 CARNEY DO, NIK K V25.40 CONTRACEPTIVE SURVEILLANCE UNSPECIFIED 05/05/2010 CARNEY DO, NIK K V25.42 Iud Removal 05/05/2010 CARNEY DO, NIK K V72.31 OPTICAL INSTRUMENT REPAIRER EXAM, ROUTINE 05/05/2010 CARNEY DO, NIK K V25.40 CONTRACEPTIVE SURVEILLANCE UNSPECIFIED 05/05/2010 CARNEY DO, NIK K V25.42 Iud Removal 05/05/2010 CARNEY DO, NIK K V72.31 OPTICAL INSTRUMENT REPAIRER EXAM, ROUTINE 05/05/2010 CARNEY DO, NIK K V25.40 CONTRACEPTIVE SURVEILLANCE UNSPECIFIED 05/05/2010 CARNEY DO, NIK K V25.42 Iud Removal 05/05/2010 CARNEY DO, NIK K V72.31 OPTICAL INSTRUMENT REPAIRER EXAM, ROUTINE 05/05/2010 CARNEY DO, NIK K V25.40 CONTRACEPTIVE SURVEILLANCE UNSPECIFIED 05/05/2010 CARNEY DO, NIK K V25.42 Iud Removal 05/05/2010 CARNEY DO, NIK K V72.31 OPTICAL INSTRUMENT REPAIRER EXAM, ROUTINE 05/05/2010 CARNEY DO, NIK K V25.40 CONTRACEPTIVE SURVEILLANCE UNSPECIFIED 05/05/2010 CARNEY DO, NIK K V25.42 Iud Removal 05/05/2010 CARNEY DO, NIK K V72.31 OPTICAL INSTRUMENT REPAIRER EXAM, ROUTINE 05/05/2010 CARNEY DO, NIK K V25.40 CONTRACEPTIVE SURVEILLANCE UNSPECIFIED 05/05/2010 CARNEY DO, NIK K V25.42 Iud Removal 05/05/2010 CARNEY DO, NIK K V72.31 OPTICAL INSTRUMENT REPAIRER EXAM, ROUTINE 05/05/2010 CARNEY DO, NIK K V25.40 CONTRACEPTIVE SURVEILLANCE UNSPECIFIED 05/05/2010 CARNEY DO, NIK K V25.42 Iud Removal 05/05/2010 CARNEY DO, NIK K V72.31 OPTICAL INSTRUMENT REPAIRER EXAM, ROUTINE 05/05/2010 CARNEY DO, NIK K V25.40 CONTRACEPTIVE SURVEILLANCE UNSPECIFIED 05/05/2010 CARNEY DO, NIK K V25.42 Iud Removal 05/05/2010 CARNEY DO, NIK K V72.31 OPTICAL INSTRUMENT REPAIRER EXAM, ROUTINE 05/05/2010 CARNEY DO, NIK K V25.40 CONTRACEPTIVE SURVEILLANCE UNSPECIFIED 05/05/2010 CARNEY DO, NIK K V25.42 Iud Removal 05/05/2010 CARNEY DO, NIK K V72.31 OPTICAL INSTRUMENT REPAIRER EXAM, ROUTINE 05/05/2010 CARNEY DO, NIK K V25.40 CONTRACEPTIVE SURVEILLANCE UNSPECIFIED 05/05/2010 CARNEY DO, NIK K V25.42 Iud Removal 05/05/2010 CARNEY DO, NIK K V72.31 OPTICAL INSTRUMENT REPAIRER EXAM, ROUTINE 05/05/2010 CARNEY DO, NIK K V25.40 CONTRACEPTIVE SURVEILLANCE UNSPECIFIED 05/05/2010 CARNEY DO, NIK K V25.42 Iud Removal 05/05/2010 CARNEY DO, NIK K V72.31 OPTICAL INSTRUMENT REPAIRER EXAM, ROUTINE 05/05/2010 CARNEY DO, NIK K V25.40 CONTRACEPTIVE SURVEILLANCE UNSPECIFIED 05/05/2010 CARNEY DO, NIK K V25.42 Iud Removal 05/05/2010 CARNEY DO, NIK K V72.31 OPTICAL INSTRUMENT REPAIRER EXAM, ROUTINE 05/05/2010 CARNEY DO, NIK K V25.40 CONTRACEPTIVE SURVEILLANCE UNSPECIFIED 05/05/2010 CARNEY DO, NIK K V25.42 Iud Removal 05/05/2010 CARNEY DO, NIK K V72.31 OPTICAL INSTRUMENT REPAIRER EXAM, ROUTINE 05/05/2010 [employer] SUPERVISOR, RACHEL A V25.40 CONTRACEPTIVE SURVEILLANCE UNSPECIFIED 05/05/2010 [employer] SUPERVISOR, RACHEL A V25.42 Iud Removal 05/05/2010 [employer] SUPERVISOR, RACHEL A V72.31 OPTICAL INSTRUMENT REPAIRER EXAM, ROUTINE 05/05/2010 [employer] SUPERVISOR, RACHEL A V25.40 CONTRACEPTIVE SURVEILLANCE UNSPECIFIED 05/05/2010 [employer] SUPERVISOR, RACHEL A V25.42 Iud Removal 05/05/2010 [employer] SUPERVISOR, RACHEL A V72.31 OPTICAL INSTRUMENT REPAIRER EXAM, ROUTINE 05/05/2010 [employer] SUPERVISOR, RACHEL A V25.40 CONTRACEPTIVE SURVEILLANCE UNSPECIFIED 05/05/2010 [employer] SUPERVISOR, RACHEL A V25.42 Iud Removal 05/05/2010 [employer] SUPERVISOR, RACHEL A V72.31 OPTICAL INSTRUMENT REPAIRER EXAM, ROUTINE 05/05/2010 CARNEY DO, NIK K V25.40 CONTRACEPTIVE SURVEILLANCE UNSPECIFIED 05/05/2010 CARNEY DO, NIK K V25.42 Iud Removal 05/05/2010 CARNEY DO, NIK K V72.31 OPTICAL INSTRUMENT REPAIRER EXAM, ROUTINE 05/05/2010 CARNEY DO, NIK K V25.40 CONTRACEPTIVE SURVEILLANCE UNSPECIFIED 05/05/2010 CARNEY DO, NIK K V25.42 Iud Removal 05/05/2010 CARNEY DO, NIK K V72.31 OPTICAL INSTRUMENT REPAIRER EXAM, ROUTINE 05/05/2010 CARNEY DO, NIK K V25.40 CONTRACEPTIVE SURVEILLANCE UNSPECIFIED 05/05/2010 KAI CARNEY DOA K V25.42 Iud Removal 05/05/2010 KAI CARNEY DOA K V72.31 OPTICAL INSTRUMENT REPAIRER EXAM, ROUTINE 05/05/2010 ANGELIKA TOLEDO NIK K V25.40 CONTRACEPTIVE SURVEILLANCE UNSPECIFIED 05/05/2010 ANGELIKA TOLEDO NIK K V25.42 Iud Removal 05/05/2010 KAI CARNEY DOA K V72.31 OPTICAL INSTRUMENT REPAIRER EXAM, ROUTINE 05/05/2010 IZABELLA PEREA, SARA Rahman V25.40 CONTRACEPTIVE SURVEILLANCE UNSPECIFIED 05/05/2010 IZABELLA PEREA, SARA Rahman V25.42 Iud Removal 05/05/2010 IZABELLA PEREA, SARA Rahman V72.31 OPTICAL INSTRUMENT REPAIRER EXAM, ROUTINE 08/01/2010 AUBREY LARA APRNA S 305.1 Tobacco Abuse 08/01/2010 KRISTEN LARA APRNNDA S 729.82 Cramp Of Limb 08/01/2010 KRISTEN LARA APRNNDA S 780.4 Dizziness And Vertigo 08/01/2010 KRISTEN LARA APRNNDA S 789.1 Hepatomegaly 08/01/2010 JANE [employer] SUPERVISOR, EFRA S 789.61 Abdominal Tenderness Right Upper Quadrant 08/01/2010 KAI CARNEY DOA K 305.1 Tobacco Abuse 08/01/2010 KAI CARNEY DOA K 729.82 Cramp Of Limb 08/01/2010 ANGELIKA DO NIK K 780.4 Dizziness And Vertigo 08/01/2010 KAI CARNEY DOA K 789.1 Hepatomegaly 08/01/2010 KAI CARNEY DOA K 789.61 Abdominal Tenderness Right Upper Quadrant 08/01/2010 305.1 Tobacco Abuse 08/01/2010 729.82 Cramp Of Limb 08/01/2010 780.4 Dizziness And Vertigo 08/01/2010 789.1 Hepatomegaly 08/01/2010 789.61 Abdominal Tenderness Right Upper Quadrant 08/01/2010 305.1 Tobacco Abuse 08/01/2010 729.82 Cramp Of Limb 08/01/2010 780.4 Dizziness And Vertigo 08/01/2010 789.1 Hepatomegaly 08/01/2010 789.61 Abdominal Tenderness Right Upper Quadrant 08/01/2010 305.1 Tobacco Abuse 08/01/2010 729.82 Cramp Of Limb 08/01/2010 780.4 Dizziness And Vertigo 08/01/2010 789.1 Hepatomegaly 08/01/2010 789.61 Abdominal Tenderness Right Upper Quadrant 08/01/2010 305.1 Tobacco Abuse 08/01/2010 729.82 Cramp Of Limb 08/01/2010 780.4 Dizziness And Vertigo 08/01/2010 789.1 Hepatomegaly 08/01/2010 789.61 Abdominal Tenderness Right Upper Quadrant 08/01/2010 305.1 Tobacco Abuse 08/01/2010 729.82 Cramp Of Limb 08/01/2010 780.4 Dizziness And Vertigo 08/01/2010 789.1 Hepatomegaly 08/01/2010 789.61 Abdominal Tenderness Right Upper Quadrant 08/01/2010 305.1 Tobacco Abuse 08/01/2010 729.82 Cramp Of Limb 08/01/2010 780.4 Dizziness And Vertigo 08/01/2010 789.1 Hepatomegaly 08/01/2010 789.61 Abdominal Tenderness Right Upper Quadrant 08/01/2010 305.1 Tobacco Abuse 08/01/2010 729.82 Cramp Of Limb 08/01/2010 780.4 Dizziness And Vertigo 08/01/2010 789.1 Hepatomegaly 08/01/2010 789.61 Abdominal Tenderness Right Upper Quadrant 08/01/2010 305.1 Tobacco Abuse 08/01/2010 729.82 Cramp Of Limb 08/01/2010 780.4 Dizziness And Vertigo 08/01/2010 789.1 Hepatomegaly 08/01/2010 789.61 Abdominal Tenderness Right Upper Quadrant 08/01/2010 305.1 Tobacco Abuse 08/01/2010 729.82 Cramp Of Limb 08/01/2010 780.4 Dizziness And Vertigo 08/01/2010 789.1 Hepatomegaly 08/01/2010 789.61 Abdominal Tenderness Right Upper Quadrant 08/01/2010 305.1 Tobacco Abuse 08/01/2010 729.82 Cramp Of Limb 08/01/2010 780.4 Dizziness And Vertigo 08/01/2010 789.1 Hepatomegaly 08/01/2010 789.61 Abdominal Tenderness Right Upper Quadrant 08/01/2010 NIK CARNEY DO 305.1 Tobacco Abuse 08/01/2010 CARNEY DO, NIK K 729.82 Cramp Of Limb 08/01/2010 CARNEY DO, NIK K 780.4 Dizziness And Vertigo 08/01/2010 CARNEY DO, NIK K 789.1 Hepatomegaly 08/01/2010 CARNEY DO, NIK K 789.61 Abdominal Tenderness Right Upper Quadrant 08/01/2010 CARNEY DO, NIK K 305.1 Tobacco Abuse 08/01/2010 CARNEY DO, NIK K 729.82 Cramp Of Limb 08/01/2010 CARNEY DO, NIK K 780.4 Dizziness And Vertigo 08/01/2010 CARNEY DO, NIK K 789.1 Hepatomegaly 08/01/2010 CARNEY DO, NIK K 789.61 Abdominal Tenderness Right Upper Quadrant 08/01/2010 CARNEY DO, NIK K 305.1 Tobacco Abuse 08/01/2010 CARNEY DO, NIK K 729.82 Cramp Of Limb 08/01/2010 CARNEY DO, NIK K 780.4 Dizziness And Vertigo 08/01/2010 CARNEY DO, NIK K 789.1 Hepatomegaly 08/01/2010 CARNEY DO, NIK K 789.61 Abdominal Tenderness Right Upper Quadrant 08/01/2010 CARNEY DO, NIK K 305.1 Tobacco Abuse 08/01/2010 CARNEY DO, NIK K 729.82 Cramp Of Limb 08/01/2010 CARNEY DO, NIK K 780.4 Dizziness And Vertigo 08/01/2010 CARNEY DO, NIK K 789.1 Hepatomegaly 08/01/2010 CARNEY DO, NIK K 789.61 Abdominal Tenderness Right Upper Quadrant 08/01/2010 CARNEY DO, NIK K 305.1 Tobacco Abuse 08/01/2010 CARNYE DO, NIK K 729.82 Cramp Of Limb 08/01/2010 CARNEY DO, NIK K 780.4 Dizziness And Vertigo 08/01/2010 CARNEY DO, NIK K 789.1 Hepatomegaly 08/01/2010 CARNEY DO, NIK K 789.61 Abdominal Tenderness Right Upper Quadrant 08/01/2010 CARNEY DO, NIK K 305.1 Tobacco Abuse 08/01/2010 CARNEY DO, NIK K 729.82 Cramp Of Limb 08/01/2010 CARNEY DO, NIK K 780.4 Dizziness And Vertigo 08/01/2010 CARNEY DO, NIK K 789.1 Hepatomegaly 08/01/2010 CARNEY DO, NIK K 789.61 Abdominal Tenderness Right Upper Quadrant 08/01/2010 CARNEY DO, NIK K 305.1 Tobacco Abuse 08/01/2010 CARNEY DO, NIK K 729.82 Cramp Of Limb 08/01/2010 CARNEY DO, NIK K 780.4 Dizziness And Vertigo 08/01/2010 CARNEY DO, NIK K 789.1 Hepatomegaly 08/01/2010 CARNEY DO, NIK K 789.61 Abdominal Tenderness Right Upper Quadrant 08/01/2010 CARNEY DO, NIK K 305.1 Tobacco Abuse 08/01/2010 CARNEY DO, NIK K 729.82 Cramp Of Limb 08/01/2010 CARNEY DO, NIK K 780.4 Dizziness And Vertigo 08/01/2010 CARNEY DO, NIK K 789.1 Hepatomegaly 08/01/2010 CARNEY DO, NIK K 789.61 Abdominal Tenderness Right Upper Quadrant 08/01/2010 CARNEY DO, NIK K 305.1 Tobacco Abuse 08/01/2010 CARNEY DO, NIK K 729.82 Cramp Of Limb 08/01/2010 CARNEY DO, NIK K 780.4 Dizziness And Vertigo 08/01/2010 CARNEY DO, NIK K 789.1 Hepatomegaly 08/01/2010 CARNEY DO, NIK K 789.61 Abdominal Tenderness Right Upper Quadrant 08/01/2010 CARNEY DO, NIK K 305.1 Tobacco Abuse 08/01/2010 CARNEY DO, NIK K 729.82 Cramp Of Limb 08/01/2010 CARNEY DO, NIK K 780.4 Dizziness And Vertigo 08/01/2010 CARNEY DO, NIK K 789.1 Hepatomegaly 08/01/2010 CARNEY DO, NIK K 789.61 Abdominal Tenderness Right Upper Quadrant 08/01/2010 CARNEY DO, NIK K 305.1 Tobacco Abuse 08/01/2010 CARNEY DO, NIK K 729.82 Cramp Of Limb 08/01/2010 CARNEY DO, NIK K 780.4 Dizziness And Vertigo 08/01/2010 CARNEY DO, NIK K 789.1 Hepatomegaly 08/01/2010 CARNEY DO, NIK K 789.61 Abdominal Tenderness Right Upper Quadrant 08/01/2010 CARNEY DO, NIK K 305.1 Tobacco Abuse 08/01/2010 CARNEY DO, NIK K 729.82 Cramp Of Limb 08/01/2010 CARNEY DO, NIK K 780.4 Dizziness And Vertigo 08/01/2010 CARNEY DO, NIK K 789.1 Hepatomegaly 08/01/2010 CARNEY DO, NIK K 789.61 Abdominal Tenderness Right Upper Quadrant 08/01/2010 CARNEY DO, NIK K 305.1 Tobacco Abuse 08/01/2010 CARNEY DO, NIK K 729.82 Cramp Of Limb 08/01/2010 CARNEY DO, NIK K 780.4 Dizziness And Vertigo 08/01/2010 CARNEY DO, NIK K 789.1 Hepatomegaly 08/01/2010 CARNEY DO, NIK K 789.61 Abdominal Tenderness Right Upper Quadrant 08/01/2010 CARNEY DO, NIK K 305.1 Tobacco Abuse 08/01/2010 CARNEY DO, NIK K 729.82 Cramp Of Limb 08/01/2010 CARNEY DO, NIK K 780.4 Dizziness And Vertigo 08/01/2010 CARNEY DO, NIK K 789.1 Hepatomegaly 08/01/2010 CARNEY DO, NIK K 789.61 Abdominal Tenderness Right Upper Quadrant 08/01/2010 CARNEY DO, NIK K 305.1 Tobacco Abuse 08/01/2010 CARNEY DO, NIK K 729.82 Cramp Of Limb 08/01/2010 CARNEY DO, NIK K 780.4 Dizziness And Vertigo 08/01/2010 CARNEY DO, NIK K 789.1 Hepatomegaly 08/01/2010 CARNEY DO, NIK K 789.61 Abdominal Tenderness Right Upper Quadrant 08/01/2010 CARNEY DO, NIK K 305.1 Tobacco Abuse 08/01/2010 CARNEY DO, NIK K 729.82 Cramp Of Limb 08/01/2010 CARNEY DO, NIK K 780.4 Dizziness And Vertigo 08/01/2010 CARNEY DO, NIK K 789.1 Hepatomegaly 08/01/2010 CARNEY DO, NIK K 789.61 Abdominal Tenderness Right Upper Quadrant 08/01/2010 CARNEY DO, NIK K 305.1 Tobacco Abuse 08/01/2010 CARNEY DO, NIK K 729.82 Cramp Of Limb 08/01/2010 CARNEY DO, NIK K 780.4 Dizziness And Vertigo 08/01/2010 CARNEY DO, NIK K 789.1 Hepatomegaly 08/01/2010 CARNEY DO, NIK K 789.61 Abdominal Tenderness Right Upper Quadrant 08/01/2010 [employer] SUPERVISOR, RACHEL A 305.1 Tobacco Abuse 08/01/2010 [employer]CE[employer] SUPERVISOR, RACHEL A 729.82 Cramp Of Limb 08/01/2010 [employer]CE[employer] SUPERVISOR, RACHEL A 780.4 Dizziness And Vertigo 08/01/2010 CONCE[employer] SUPERVISOR, RACHEL A 789.1 Hepatomegaly 08/01/2010 CONCE[employer]W SUPERVISOR, RACHEL A 789.61 Abdominal Tenderness Right Upper Quadrant 08/01/2010 [employer]CE[employer] SUPERVISOR, RACHEL A 305.1 Tobacco Abuse 08/01/2010 [employer]CE[employer]W SUPERVISOR, RACHEL A 729.82 Cramp Of Limb 08/01/2010 [employer]CE[employer]W SUPERVISOR, RACHEL A 780.4 Dizziness And Vertigo 08/01/2010 CONCE[employer] CREW SUPERVISOR, RACHEL A 789.1 Hepatomegaly 08/01/2010 CONCE[employer] CREW SUPERVISOR, RACHEL A 789.61 Abdominal Tenderness Right Upper Quadrant 08/01/2010 CONCE[employer]W SUPERVISOR, RACHEL A 305.1 Tobacco Abuse 08/01/2010 [employer]CE[employer]W SUPERVISOR, RACHEL A 729.82 Cramp Of Limb 08/01/2010 CONCE[employer] SUPERVISOR, RACHEL A 780.4 Dizziness And Vertigo 08/01/2010 CONCE[employer]W SUPERVISOR, RACHEL A 789.1 Hepatomegaly 08/01/2010 CONCE[employer] SUPERVISOR, RACHEL A 789.61 Abdominal Tenderness Right Upper Quadrant 08/01/2010 CARNEY DO, NIK K 305.1 Tobacco Abuse 08/01/2010 CARNEY DO, NIK K 729.82 Cramp Of Limb 08/01/2010 CARNEY DO, NIK K 780.4 Dizziness And Vertigo 08/01/2010 CARNEY DO, NIK K 789.1 Hepatomegaly 08/01/2010 CARNEY DO, NIK K 789.61 Abdominal Tenderness Right Upper Quadrant 08/01/2010 CARNEY DO, NIK K 305.1 Tobacco Abuse 08/01/2010 CARNEY DO, NIK K 729.82 Cramp Of Limb 08/01/2010 CARNEY DO, NIK K 780.4 Dizziness And Vertigo 08/01/2010 CARNEY DO, NIK K 789.1 Hepatomegaly 08/01/2010 CARNEY DO, NIK K 789.61 Abdominal Tenderness Right Upper Quadrant 08/01/2010 CARNEY DO, NIK K 305.1 Tobacco Abuse 08/01/2010 CARNEY DO, NIK K 729.82 Cramp Of Limb 08/01/2010 CARNEY DO, NIK K 780.4 Dizziness And Vertigo 08/01/2010 CARNEY DO, NIK K 789.1 Hepatomegaly 08/01/2010 CARNEY DO, NIK K 789.61 Abdominal Tenderness Right Upper Quadrant 08/01/2010 CARNEY DO, NIK K 305.1 Tobacco Abuse 08/01/2010 CARNEY DO, NIK K 729.82 Cramp Of Limb 08/01/2010 CARNEY DO, NIK K 780.4 Dizziness And Vertigo 08/01/2010 CARNEY DO, NIK K 789.1 Hepatomegaly 08/01/2010 CARNEY DO, NIK K 789.61 Abdominal Tenderness Right Upper Quadrant 08/01/2010 SARA PAREKH MD N 305.1 Tobacco Abuse 08/01/2010 SARA PAREKH MD N 729.82 Cramp Of Limb 08/01/2010 SARA PAREKH MD N 780.4 Dizziness And Vertigo 08/01/2010 SARA PAREKH MD N 789.1 Hepatomegaly 08/01/2010 SARA PAREKH MD N 789.61 Abdominal Tenderness Right Upper Quadrant 12/18/2010 EFRA LARA APRN 724.2 LUMBAGO 12/18/2010 CARNEY DO, NIK K 724.2 LUMBAGO 12/18/2010 724.2 LUMBAGO 12/18/2010 724.2 LUMBAGO 12/18/2010 724.2 LUMBAGO 12/18/2010 724.2 LUMBAGO 12/18/2010 724.2 LUMBAGO 12/18/2010 724.2 LUMBAGO 12/18/2010 724.2 LUMBAGO 12/18/2010 724.2 LUMBAGO 12/18/2010 724.2 LUMBAGO 12/18/2010 724.2 LUMBAGO 12/18/2010 CARNEY DO, NIK K 724.2 LUMBAGO 12/18/2010 CARNEY DO, NIK K 724.2 LUMBAGO 12/18/2010 CARNEY DO, NIK K 724.2 LUMBAGO 12/18/2010 CARNEY DO, NIK K 724.2 LUMBAGO 12/18/2010 CARNEY DO, NIK K 724.2 LUMBAGO 12/18/2010 CARNEY DO, NIK K 724.2 LUMBAGO 12/18/2010 CARNEY DO, NIK K 724.2 LUMBAGO 12/18/2010 CARNEY DO, NIK K 724.2 LUMBAGO 12/18/2010 CARNEY DO, NIK K 724.2 LUMBAGO 12/18/2010 CARNEY DO, NIK K 724.2 LUMBAGO 12/18/2010 CARNEY DO, NIK K 724.2 LUMBAGO 12/18/2010 CARNEY DO, NIK K 724.2 LUMBAGO 12/18/2010 CARNEY DO, NIK K 724.2 LUMBAGO 12/18/2010 CARNEY DO, NIK K 724.2 LUMBAGO 12/18/2010 CARNEY DO, NIK K 724.2 LUMBAGO 12/18/2010 CARNEY DO, NIK K 724.2 LUMBAGO 12/18/2010 CARNEY DO, NIK K 724.2 LUMBAGO 12/18/2010 [employer] SUPERVISOR, RACHEL A 724.2 LUMBAGO 12/18/2010 [employer]CE[employer] SUPERVISOR, RACHEL A 724.2 LUMBAGO 12/18/2010 CONCE[employer]W SUPERVISOR, RACHEL A 724.2 LUMBAGO 12/18/2010 CARNEY DO, NIK K 724.2 LUMBAGO 12/18/2010 CARNEY DO, NIK K 724.2 LUMBAGO 12/18/2010 CARNEY DO, NIK K 724.2 LUMBAGO 12/18/2010 CARNEY DO, NIK K 724.2 LUMBAGO 12/18/2010 IZABELLA PEREA, SARA Rahman 724.2 LUMBAGO 12/30/2010 EFRA LARA APRN S 079.99 Viral Syndrome 12/30/2010 EFRA LARA APRN S 724.3 SCIATICA 12/30/2010 CARNEY DO, NIK K 079.99 Viral Syndrome 12/30/2010 CARNEY DO, NIK K 724.3 SCIATICA 12/30/2010 079.99 Viral Syndrome 12/30/2010 724.3 SCIATICA 12/30/2010 079.99 Viral Syndrome 12/30/2010 724.3 SCIATICA 12/30/2010 079.99 Viral Syndrome 12/30/2010 724.3 SCIATICA 12/30/2010 079.99 Viral Syndrome 12/30/2010 724.3 SCIATICA 12/30/2010 079.99 Viral Syndrome 12/30/2010 724.3 SCIATICA 12/30/2010 079.99 Viral Syndrome 12/30/2010 724.3 SCIATICA 12/30/2010 079.99 Viral Syndrome 12/30/2010 724.3 SCIATICA 12/30/2010 079.99 Viral Syndrome 12/30/2010 724.3 SCIATICA 12/30/2010 079.99 Viral Syndrome 12/30/2010 724.3 SCIATICA 12/30/2010 079.99 Viral Syndrome 12/30/2010 724.3 SCIATICA 12/30/2010 CARNEY DO, NIK K 079.99 Viral Syndrome 12/30/2010 CARNEY DO, NIK K 724.3 SCIATICA 12/30/2010 CARNEY DO, NIK K 079.99 Viral Syndrome 12/30/2010 CARNEY DO, NIK K 724.3 SCIATICA 12/30/2010 CARNEY DO, NIK K 079.99 Viral Syndrome 12/30/2010 CARNEY DO, NIK K 724.3 SCIATICA 12/30/2010 CARNEY DO, NIK K 079.99 Viral Syndrome 12/30/2010 CARNEY DO, NIK K 724.3 SCIATICA 12/30/2010 CARNEY DO, NIK K 079.99 Viral Syndrome 12/30/2010 CARNEY DO, NIK K 724.3 SCIATICA 12/30/2010 CARNEY DO, NIK K 079.99 Viral Syndrome 12/30/2010 CARNEY DO, NIK K 724.3 SCIATICA 12/30/2010 CARNEY DO, NIK K 079.99 Viral Syndrome 12/30/2010 CARNEY DO, NIK K 724.3 SCIATICA 12/30/2010 CARNEY DO, NIK K 079.99 Viral Syndrome 12/30/2010 CARNEY DO, NIK K 724.3 SCIATICA 12/30/2010 CARNEY DO, NIK K 079.99 Viral Syndrome 12/30/2010 CARNEY DO, NIK K 724.3 SCIATICA 12/30/2010 CARNEY DO, NIK K 079.99 Viral Syndrome 12/30/2010 CARNEY DO, NIK K 724.3 SCIATICA 12/30/2010 CARNEY DO, NIK K 079.99 Viral Syndrome 12/30/2010 CARNEY DO, NIK K 724.3 SCIATICA 12/30/2010 CARNEY DO, NIK K 079.99 Viral Syndrome 12/30/2010 CARNEY DO, NIK K 724.3 SCIATICA 12/30/2010 CARNEY DO, NIK K 079.99 Viral Syndrome 12/30/2010 CARNEY DO, NIK K 724.3 SCIATICA 12/30/2010 CARNEY DO, NIK K 079.99 Viral Syndrome 12/30/2010 CARNEY DO, NIK K 724.3 SCIATICA 12/30/2010 CARNEY DO, NIK K 079.99 Viral Syndrome 12/30/2010 CARNEY DO, NIK K 724.3 SCIATICA 12/30/2010 CARNEY DO, NIK K 079.99 Viral Syndrome 12/30/2010 CARNEY DO, NIK K 724.3 SCIATICA 12/30/2010 CARNEY DO, NIK K 079.99 Viral Syndrome 12/30/2010 CARNEY DO, NIK K 724.3 SCIATICA 12/30/2010 [employer] SUPERVISOR, RACHEL A 079.99 Viral Syndrome 12/30/2010 [employer]CE[employer] SUPERVISOR, RACHEL A 724.3 SCIATICA 12/30/2010 [employer]CE[employer] SUPERVISOR, RACHEL A 079.99 Viral Syndrome 12/30/2010 [employer]CE[employer] SUPERVISOR, RACHEL A 724.3 SCIATICA 12/30/2010 [employer]CE[employer] SUPERVISOR, RACHEL A 079.99 Viral Syndrome 12/30/2010 [employer]CE[employer] SUPERVISOR, RACHEL A 724.3 SCIATICA 12/30/2010 CARNEY DO, NIK K 079.99 Viral Syndrome 12/30/2010 CARNEY DO, NIK K 724.3 SCIATICA 12/30/2010 CARNEY DO, NIK K 079.99 Viral Syndrome 12/30/2010 CARNEY DO, NIK K 724.3 SCIATICA 12/30/2010 CARNEY DO, NIK K 079.99 Viral Syndrome 12/30/2010 CARNEY DO, NIK K 724.3 SCIATICA 12/30/2010 CARNEY DO, NIK K 079.99 Viral Syndrome 12/30/2010 CARNEY DO, NIK K 724.3 SCIATICA 12/30/2010 SARA PAREKH MD 079.99 Viral Syndrome 12/30/2010 SARA PAREKH MD 724.3 SCIATICA 03/12/2011 EFRA LARA APRN V25.49 Contraception Surveillance (repeat Rx) 03/12/2011 CARNEY KAI TOLEDOA K V25.49 Contraception Surveillance (repeat Rx) 03/12/2011 V25.49 Contraception Surveillance (repeat Rx) 03/12/2011 V25.49 Contraception Surveillance (repeat Rx) 03/12/2011 V25.49 Contraception Surveillance (repeat Rx) 03/12/2011 V25.49 Contraception Surveillance (repeat Rx) 03/12/2011 V25.49 Contraception Surveillance (repeat Rx) 03/12/2011 V25.49 Contraception Surveillance (repeat Rx) 03/12/2011 V25.49 Contraception Surveillance (repeat Rx) 03/12/2011 V25.49 Contraception Surveillance (repeat Rx) 03/12/2011 V25.49 Contraception Surveillance (repeat Rx) 03/12/2011 V25.49 Contraception Surveillance (repeat Rx) 03/12/2011 CARNEY KAI TOLEDOA K V25.49 Contraception Surveillance (repeat Rx) 03/12/2011 KAI CARNEY DOA K V25.49 Contraception Surveillance (repeat Rx) 03/12/2011 CARNEY KAI TOLEDOA K V25.49 Contraception Surveillance (repeat Rx) 03/12/2011 CARNEY DO NIK K V25.49 Contraception Surveillance (repeat Rx) 03/12/2011 KAI CARNEY DOA K V25.49 Contraception Surveillance (repeat Rx) 03/12/2011 CARNEY DO NIK K V25.49 Contraception Surveillance (repeat Rx) 03/12/2011 CARNEY DO NIK K V25.49 Contraception Surveillance (repeat Rx) 03/12/2011 CARNEY DO NIK K V25.49 Contraception Surveillance (repeat Rx) 03/12/2011 CARNEY DO NIK K V25.49 Contraception Surveillance (repeat Rx) 03/12/2011 CARNEY DO NIK K V25.49 Contraception Surveillance (repeat Rx) 03/12/2011 CARNEY KAI TOLEDOA K V25.49 Contraception Surveillance (repeat Rx) 03/12/2011 CARNEY DO, NIK K V25.49 Contraception Surveillance (repeat Rx) 03/12/2011 CARNEY DO, NIK K V25.49 Contraception Surveillance (repeat Rx) 03/12/2011 CARNEY DO, NIK K V25.49 Contraception Surveillance (repeat Rx) 03/12/2011 CARNEY DO, NIK K V25.49 Contraception Surveillance (repeat Rx) 03/12/2011 CARNEY DO, NIK K V25.49 Contraception Surveillance (repeat Rx) 03/12/2011 CARNEY DO NIK K V25.49 Contraception Surveillance (repeat Rx) 03/12/2011 [employer] SUPERVISOR, RACHEL A V25.49 Contraception Surveillance (repeat Rx) 03/12/2011 [employer]CE[employer] SUPERVISOR, RACHEL A V25.49 Contraception Surveillance (repeat Rx) 03/12/2011 [employer]CE[employer] SUPERVISOR, RACHEL A V25.49 Contraception Surveillance (repeat Rx) 03/12/2011 CARNEY DOKAIA K V25.49 Contraception Surveillance (repeat Rx) 03/12/2011 CARNEY DO NIK K V25.49 Contraception Surveillance (repeat Rx) 03/12/2011 CARNEY DO NIK K V25.49 Contraception Surveillance (repeat Rx) 03/12/2011 CARNEY DO NIK K V25.49 Contraception Surveillance (repeat Rx) 03/12/2011 IZABELLA PEREA, SARA Rahman V25.49 Contraception Surveillance (repeat Rx) 05/07/2011 EFRA LARA APRN 461.9 Sinusitis Acute 05/07/2011 EFRA LARA APRN V65.42 COUNSELING - SMOKING CESSATION 05/07/2011 NIK CARNEY DO 461.9 Sinusitis Acute 05/07/2011 NIK CARNEY DO V65.42 COUNSELING - SMOKING CESSATION 05/07/2011 461.9 Sinusitis Acute 05/07/2011 V65.42 COUNSELING - SMOKING CESSATION 05/07/2011 461.9 Sinusitis Acute 05/07/2011 V65.42 COUNSELING - SMOKING CESSATION 05/07/2011 461.9 Sinusitis Acute 05/07/2011 V65.42 COUNSELING - SMOKING CESSATION 05/07/2011 461.9 Sinusitis Acute 05/07/2011 V65.42 COUNSELING - SMOKING CESSATION 05/07/2011 461.9 Sinusitis Acute 05/07/2011 V65.42 COUNSELING - SMOKING CESSATION 05/07/2011 461.9 Sinusitis Acute 05/07/2011 V65.42 COUNSELING - SMOKING CESSATION 05/07/2011 461.9 Sinusitis Acute 05/07/2011 V65.42 COUNSELING - SMOKING CESSATION 05/07/2011 461.9 Sinusitis Acute 05/07/2011 V65.42 COUNSELING - SMOKING CESSATION 05/07/2011 461.9 Sinusitis Acute 05/07/2011 V65.42 COUNSELING - SMOKING CESSATION 05/07/2011 461.9 Sinusitis Acute 05/07/2011 V65.42 COUNSELING - SMOKING CESSATION 05/07/2011 CARNEY DO NIK K 461.9 Sinusitis Acute 05/07/2011 CARNEY DO NIK K V65.42 COUNSELING - SMOKING CESSATION 05/07/2011 CARNEY DO NIK K 461.9 Sinusitis Acute 05/07/2011 CARNEY DO NIK K V65.42 COUNSELING - SMOKING CESSATION 05/07/2011 CARNEY DO NIK K 461.9 Sinusitis Acute 05/07/2011 CARNEY DO NIK K V65.42 COUNSELING - SMOKING CESSATION 05/07/2011 CARNEY DO NIK K 461.9 Sinusitis Acute 05/07/2011 CARNEY DO NIK K V65.42 COUNSELING - SMOKING CESSATION 05/07/2011 CARNEY DO NIK K 461.9 Sinusitis Acute 05/07/2011 CARNEY DO NIK K V65.42 COUNSELING - SMOKING CESSATION 05/07/2011 CARNEY DO NIK K 461.9 Sinusitis Acute 05/07/2011 CARNEY DO NIK K V65.42 COUNSELING - SMOKING CESSATION 05/07/2011 CARNEY DO NIK K 461.9 Sinusitis Acute 05/07/2011 CARNEY DO, NIK K V65.42 COUNSELING - SMOKING CESSATION 05/07/2011 CARNEY DO, NIK K 461.9 Sinusitis Acute 05/07/2011 CARNEY DO NIK K V65.42 COUNSELING - SMOKING CESSATION 05/07/2011 CARNEY DO NIK K 461.9 Sinusitis Acute 05/07/2011 CARNEY DO NIK K V65.42 COUNSELING - SMOKING CESSATION 05/07/2011 CARNEY DO NIK K 461.9 Sinusitis Acute 05/07/2011 CARNEY DO NIK K V65.42 COUNSELING - SMOKING CESSATION 05/07/2011 CARNEY DO, NIK K 461.9 Sinusitis Acute 05/07/2011 CARNEY DO, NIK K V65.42 COUNSELING - SMOKING CESSATION 05/07/2011 CARNEY DO, NIK K 461.9 Sinusitis Acute 05/07/2011 CARNEY DO, NIK K V65.42 COUNSELING - SMOKING CESSATION 05/07/2011 CARNEY DO, NIK K 461.9 Sinusitis Acute 05/07/2011 CARNEY DO, NIK K V65.42 COUNSELING - SMOKING CESSATION 05/07/2011 CARNEY DO, NIK K 461.9 Sinusitis Acute 05/07/2011 CARNEY DO, NIK K V65.42 COUNSELING - SMOKING CESSATION 05/07/2011 CARNEY DO, NIK K 461.9 Sinusitis Acute 05/07/2011 CARNEY DO, NIK K V65.42 COUNSELING - SMOKING CESSATION 05/07/2011 CARNEY DO, NIK K 461.9 Sinusitis Acute 05/07/2011 CARNEY DO, NIK K V65.42 COUNSELING - SMOKING CESSATION 05/07/2011 CARNEY DO, NIK K 461.9 Sinusitis Acute 05/07/2011 CARNEY DO, NIK K V65.42 COUNSELING - SMOKING CESSATION 05/07/2011 [employer], RACHEL A 461.9 Sinusitis Acute 05/07/2011 [employer], RACHEL A V65.42 COUNSELING - SMOKING CESSATION 05/07/2011 [employer]OR, RACHEL A 461.9 Sinusitis Acute 05/07/2011 [employer]OR, RACHEL A V65.42 COUNSELING - SMOKING CESSATION 05/07/2011 [employer]OR, RACHEL A 461.9 Sinusitis Acute 05/07/2011 [employer], RACHEL A V65.42 COUNSELING - SMOKING CESSATION 05/07/2011 CARNEY DO, NIK K 461.9 Sinusitis Acute 05/07/2011 CARNEY DO, NIK K V65.42 COUNSELING - SMOKING CESSATION 05/07/2011 CARNEY DO, NIK K 461.9 Sinusitis Acute 05/07/2011 CARNEY DO, NIK K V65.42 COUNSELING - SMOKING CESSATION 05/07/2011 CARNEY DO, NIK K 461.9 Sinusitis Acute 05/07/2011 CARNEY DO, NIK K V65.42 COUNSELING - SMOKING CESSATION 05/07/2011 NIK CARNEY DO 461.9 Sinusitis Acute 05/07/2011 NIK CARNEY DO V65.42 COUNSELING - SMOKING CESSATION 05/07/2011 SARA PAREKH MD 461.9 Sinusitis Acute 05/07/2011 SARA PAREKH MD V65.42 COUNSELING - SMOKING CESSATION 05/15/2011 [employer]OR, EFRA S 465.9 Upper Respiratory Infection 05/15/2011 [employer]OR, EFRA S 477.9 Rhinitis 05/15/2011 [employer], EFRA S 786.2 Cough 05/15/2011 NIK CARNEY DO 465.9 Upper Respiratory Infection 05/15/2011 NIK CARNEY DO 477.9 Rhinitis 05/15/2011 NIK CARNEY DO 786.2 Cough 05/15/2011 465.9 Upper Respiratory Infection 05/15/2011 477.9 Rhinitis 05/15/2011 786.2 Cough 05/15/2011 465.9 Upper Respiratory Infection 05/15/2011 477.9 Rhinitis 05/15/2011 786.2 Cough 05/15/2011 465.9 Upper Respiratory Infection 05/15/2011 477.9 Rhinitis 05/15/2011 786.2 Cough 05/15/2011 465.9 Upper Respiratory Infection 05/15/2011 477.9 Rhinitis 05/15/2011 786.2 Cough 05/15/2011 465.9 Upper Respiratory Infection 05/15/2011 477.9 Rhinitis 05/15/2011 786.2 Cough 05/15/2011 465.9 Upper Respiratory Infection 05/15/2011 477.9 Rhinitis 05/15/2011 786.2 Cough 05/15/2011 465.9 Upper Respiratory Infection 05/15/2011 477.9 Rhinitis 05/15/2011 786.2 Cough 05/15/2011 465.9 Upper Respiratory Infection 05/15/2011 477.9 Rhinitis 05/15/2011 786.2 Cough 05/15/2011 465.9 Upper Respiratory Infection 05/15/2011 477.9 Rhinitis 05/15/2011 786.2 Cough 05/15/2011 465.9 Upper Respiratory Infection 05/15/2011 477.9 Rhinitis 05/15/2011 786.2 Cough 05/15/2011 NIK CARNEY DO 465.9 Upper Respiratory Infection 05/15/2011 CARNEY DO, NIK K 477.9 Rhinitis 05/15/2011 CARNEY DO, NIK K 786.2 Cough 05/15/2011 CARNEY DO, NIK K 465.9 Upper Respiratory Infection 05/15/2011 CARNEY DO, NIK K 477.9 Rhinitis 05/15/2011 CARNEY DO, NIK K 786.2 Cough 05/15/2011 CARNEY DO, NIK K 465.9 Upper Respiratory Infection 05/15/2011 CARNEY DO, NIK K 477.9 Rhinitis 05/15/2011 CARNEY DO, NIK K 786.2 Cough 05/15/2011 CARNEY DO, NIK K 465.9 Upper Respiratory Infection 05/15/2011 CARNEY DO, NIK K 477.9 Rhinitis 05/15/2011 CARNEY DO, NIK K 786.2 Cough 05/15/2011 CARNEY DO, NIK K 465.9 Upper Respiratory Infection 05/15/2011 CARNEY DO, NIK K 477.9 Rhinitis 05/15/2011 CARNEY DO, NIK K 786.2 Cough 05/15/2011 CARNEY DO, NIK K 465.9 Upper Respiratory Infection 05/15/2011 CARNEY DO, NIK K 477.9 Rhinitis 05/15/2011 CARNEY DO, NIK K 786.2 Cough 05/15/2011 CARNEY DO, NIK K 465.9 Upper Respiratory Infection 05/15/2011 CARNEY DO, NIK K 477.9 Rhinitis 05/15/2011 CARNEY DO, NIK K 786.2 Cough 05/15/2011 CARNEY DO, NIK K 465.9 Upper Respiratory Infection 05/15/2011 CARNEY DO, NIK K 477.9 Rhinitis 05/15/2011 CARNEY DO, NIK K 786.2 Cough 05/15/2011 CARNEY DO, NIK K 465.9 Upper Respiratory Infection 05/15/2011 CARNEY DO, NIK K 477.9 Rhinitis 05/15/2011 CARNEY DO, NIK K 786.2 Cough 05/15/2011 CARNEY DO, NIK K 465.9 Upper Respiratory Infection 05/15/2011 CARNEY DO, NIK K 477.9 Rhinitis 05/15/2011 CARNEY DO, NIK K 786.2 Cough 05/15/2011 CARNEY DO, NIK K 465.9 Upper Respiratory Infection 05/15/2011 CARNEY DO, NIK K 477.9 Rhinitis 05/15/2011 CARNEY DO, NIK K 786.2 Cough 05/15/2011 CARNEY DO, NIK K 465.9 Upper Respiratory Infection 05/15/2011 CARNEY DO, NIK K 477.9 Rhinitis 05/15/2011 CARNEY DO, NIK K 786.2 Cough 05/15/2011 CARNEY DO, NIK K 465.9 Upper Respiratory Infection 05/15/2011 CARNEY DO, NIK K 477.9 Rhinitis 05/15/2011 CARNEY DO, NIK K 786.2 Cough 05/15/2011 CARNEY DO, NIK K 465.9 Upper Respiratory Infection 05/15/2011 CARNEY DO, NIK K 477.9 Rhinitis 05/15/2011 CARNEY DO, NIK K 786.2 Cough 05/15/2011 CARNEY DO, NIK K 465.9 Upper Respiratory Infection 05/15/2011 CARNEY DO, NIK K 477.9 Rhinitis 05/15/2011 CARNEY DO, NIK K 786.2 Cough 05/15/2011 CARNEY DO, NIK K 465.9 Upper Respiratory Infection 05/15/2011 CARNEY DO, NIK K 477.9 Rhinitis 05/15/2011 CARNEY DO, NIK K 786.2 Cough 05/15/2011 CARNEY DO, NIK K 465.9 Upper Respiratory Infection 05/15/2011 CARNEY DO, NIK K 477.9 Rhinitis 05/15/2011 CARNEY DO, NIK K 786.2 Cough 05/15/2011 [employer]PERVISOR, RACHEL A 465.9 Upper Respiratory Infection 05/15/2011 [employer] SUPERVISOR, RACHEL A 477.9 Rhinitis 05/15/2011 [employer] SUPERVISOR, RACHEL A 786.2 Cough 05/15/2011 [employer] SUPERVISOR, RACHEL A 465.9 Upper Respiratory Infection 05/15/2011 [employer] SUPERVISOR, RACHEL A 477.9 Rhinitis 05/15/2011 [employer] SUPERVISOR, RACHEL A 786.2 Cough 05/15/2011 [employer] SUPERVISOR, RACHEL A 465.9 Upper Respiratory Infection 05/15/2011 [employer] SUPERVISOR, RACHEL A 477.9 Rhinitis 05/15/2011 [employer] SUPERVISOR, RACHEL A 786.2 Cough 05/15/2011 CARNEY DO, NIK K 465.9 Upper Respiratory Infection 05/15/2011 CARNEY DO, NIK K 477.9 Rhinitis 05/15/2011 CARNEY DO, NIK K 786.2 Cough 05/15/2011 CARNEY DO, NIK K 465.9 Upper Respiratory Infection 05/15/2011 CARNEY DO, NIK K 477.9 Rhinitis 05/15/2011 CARNEY DO, NIK K 786.2 Cough 05/15/2011 CARNEY DO, NIK K 465.9 Upper Respiratory Infection 05/15/2011 CARNYE DO, NIK K 477.9 Rhinitis 05/15/2011 CARNEY DO, NIK K 786.2 Cough 05/15/2011 CARNEY DO, NIK K 465.9 Upper Respiratory Infection 05/15/2011 CARNEY DO, NIK K 477.9 Rhinitis 05/15/2011 CARNEY DO, NIK K 786.2 Cough 05/15/2011 SARA PAREKH MD N 465.9 Upper Respiratory Infection 05/15/2011 SARA PAREKH MD N 477.9 Rhinitis 05/15/2011 SARA PAREKH MD N 786.2 Cough 09/08/2011 EFRA LARA APRN 462 Acute Pharyngitis 09/08/2011 CARNEY DO, NIK K 462 Acute Pharyngitis 09/08/2011 462 Acute Pharyngitis 09/08/2011 462 Acute Pharyngitis 09/08/2011 462 Acute Pharyngitis 09/08/2011 462 Acute Pharyngitis 09/08/2011 462 Acute Pharyngitis 09/08/2011 462 Acute Pharyngitis 09/08/2011 462 Acute Pharyngitis 09/08/2011 462 Acute Pharyngitis 09/08/2011 462 Acute Pharyngitis 09/08/2011 462 Acute Pharyngitis 09/08/2011 CARNEY DO, NIK K 462 Acute Pharyngitis 09/08/2011 CARNEY DO, NIK K 462 Acute Pharyngitis 09/08/2011 CARNEY DO, NIK K 462 Acute Pharyngitis 09/08/2011 CARNEY DO, NIK K 462 Acute Pharyngitis 09/08/2011 CARNEY DO, NIK K 462 Acute Pharyngitis 09/08/2011 CARNEY DO, NIK K 462 Acute Pharyngitis 09/08/2011 CARNEY DO, NIK K 462 Acute Pharyngitis 09/08/2011 CARNEY DO, NIK K 462 Acute Pharyngitis 09/08/2011 CARNEY DO, NIK K 462 Acute Pharyngitis 09/08/2011 CARNEY DO, NKI K 462 Acute Pharyngitis 09/08/2011 CARNEY DO, NIK K 462 Acute Pharyngitis 09/08/2011 CARNEY DO, NIK K 462 Acute Pharyngitis 09/08/2011 CARNEY DO, NIK K 462 Acute Pharyngitis 09/08/2011 CARNEY DO, NIK K 462 Acute Pharyngitis 09/08/2011 CARNEY DO, NIK K 462 Acute Pharyngitis 09/08/2011 CARNEY DO, NIK K 462 Acute Pharyngitis 09/08/2011 CARNEY DO, NIK K 462 Acute Pharyngitis 09/08/2011 [employer]PERVISOR, RACHEL A 462 Acute Pharyngitis 09/08/2011 [employer] SUPERVISOR, RACHEL A 462 Acute Pharyngitis 09/08/2011 [employer] SUPERVISOR, RACHEL A 462 Acute Pharyngitis 09/08/2011 CARNEY DO, NIK K 462 Acute Pharyngitis 09/08/2011 CARNEY DO, NIK K 462 Acute Pharyngitis 09/08/2011 CARNEY DO, NIK K 462 Acute Pharyngitis 09/08/2011 CARNEY DO, NIK K 462 Acute Pharyngitis 09/08/2011 IZABELLA PEREA, SARA Rahman 462 Acute Pharyngitis 01/08/2012 EFRA LARA APRN 461.9 SINUSITIS ACUTE 01/08/2012 CARNEY DO, NIK K 461.9 SINUSITIS ACUTE 01/08/2012 461.9 Sinusitis Acute 01/08/2012 461.9 Sinusitis Acute 01/08/2012 461.9 Sinusitis Acute 01/08/2012 461.9 Sinusitis Acute 01/08/2012 461.9 Sinusitis Acute 01/08/2012 461.9 Sinusitis Acute 01/08/2012 461.9 Sinusitis Acute 01/08/2012 461.9 Sinusitis Acute 01/08/2012 461.9 Sinusitis Acute 01/08/2012 461.9 Sinusitis Acute 01/08/2012 CARNEY DO, NIK K 461.9 Sinusitis Acute 01/08/2012 CARNEY DO, NIK K 461.9 Sinusitis Acute 01/08/2012 CARNEY DO, NIK K 461.9 Sinusitis Acute 01/08/2012 CARNEY DO, NIK K 461.9 Sinusitis Acute 01/08/2012 CARNEY DO, NIK K 461.9 Sinusitis Acute 01/08/2012 CARNEY DO, NIK K 461.9 Sinusitis Acute 01/08/2012 CARNEY DO, NIK K 461.9 Sinusitis Acute 01/08/2012 CARNEY DO, NIK K 461.9 Sinusitis Acute 01/08/2012 CARNEY DO, NIK K 461.9 Sinusitis Acute 01/08/2012 CARNEY DO, NIK K 461.9 Sinusitis Acute 01/08/2012 CARNEY DO, NIK K 461.9 Sinusitis Acute 01/08/2012 CARNEY DO, NIK K 461.9 Sinusitis Acute 01/08/2012 CARNEY DO, NIK K 461.9 Sinusitis Acute 01/08/2012 CARNEY DO, NIK K 461.9 Sinusitis Acute 01/08/2012 CARNEY DO, NIK K 461.9 Sinusitis Acute 01/08/2012 CARNEY DO, NIK K 461.9 Sinusitis Acute 01/08/2012 CARNEY DO, NIK K 461.9 Sinusitis Acute 01/08/2012 [employer]PERVISOR, RACHEL A 461.9 Sinusitis Acute 01/08/2012 [employer] SUPERVISOR, RACHEL A 461.9 Sinusitis Acute 01/08/2012 [employer] SUPERVISOR, RACHEL A 461.9 Sinusitis Acute 01/08/2012 CARNEY DO, NIK K 461.9 Sinusitis Acute 01/08/2012 CARNEY DO, NIK K 461.9 Sinusitis Acute 01/08/2012 CARNEY DO, NIK K 461.9 Sinusitis Acute 01/08/2012 CARNEY DO, NIK K 461.9 Sinusitis Acute 01/08/2012 SARA PAREKH MD 461.9 Sinusitis Acute 02/26/2012 EFRA LARA APRN V25.49 CONTRACEPTION SURVEILLANCE (REPEAT RX) 02/26/2012 CARNEY DOKAIA K V25.49 CONTRACEPTION SURVEILLANCE (REPEAT RX) 02/26/2012 V25.49 CONTRACEPTION SURVEILLANCE (REPEAT RX) 02/26/2012 V25.49 CONTRACEPTION SURVEILLANCE (REPEAT RX) 02/26/2012 V25.49 CONTRACEPTION SURVEILLANCE (REPEAT RX) 02/26/2012 V25.49 CONTRACEPTION SURVEILLANCE (REPEAT RX) 02/26/2012 V25.49 CONTRACEPTION SURVEILLANCE (REPEAT RX) 02/26/2012 V25.49 CONTRACEPTION SURVEILLANCE (REPEAT RX) 02/26/2012 V25.49 CONTRACEPTION SURVEILLANCE (REPEAT RX) 02/26/2012 V25.49 CONTRACEPTION SURVEILLANCE (REPEAT RX) 02/26/2012 V25.49 CONTRACEPTION SURVEILLANCE (REPEAT RX) 02/26/2012 V25.49 CONTRACEPTION SURVEILLANCE (REPEAT RX) 02/26/2012 CARNEY KAI TOLEDOA K V25.49 CONTRACEPTION SURVEILLANCE (REPEAT RX) 02/26/2012 CARNEY KAI TOLEDOA K V25.49 CONTRACEPTION SURVEILLANCE (REPEAT RX) 02/26/2012 CARNEY KAI TOLEDOA K V25.49 CONTRACEPTION SURVEILLANCE (REPEAT RX) 02/26/2012 CARNEY KAI TOLEDOA K V25.49 CONTRACEPTION SURVEILLANCE (REPEAT RX) 02/26/2012 CARNEY KAI TOLEDOA K V25.49 CONTRACEPTION SURVEILLANCE (REPEAT RX) 02/26/2012 CARNEY KAI TOLEDOA K V25.49 CONTRACEPTION SURVEILLANCE (REPEAT RX) 02/26/2012 KAI CARNEY DOA K V25.49 CONTRACEPTION SURVEILLANCE (REPEAT RX) 02/26/2012 CARNEY KAI TOLEDOA K V25.49 CONTRACEPTION SURVEILLANCE (REPEAT RX) 02/26/2012 CARNEY KAI TOLEDOA K V25.49 CONTRACEPTION SURVEILLANCE (REPEAT RX) 02/26/2012 KAI CARNEY DOA K V25.49 CONTRACEPTION SURVEILLANCE (REPEAT RX) 02/26/2012 CARNEY DO NIK K V25.49 CONTRACEPTION SURVEILLANCE (REPEAT RX) 02/26/2012 CARNEY DO NIK K V25.49 CONTRACEPTION SURVEILLANCE (REPEAT RX) 02/26/2012 CARNEY DO NIK K V25.49 CONTRACEPTION SURVEILLANCE (REPEAT RX) 02/26/2012 CARNEY DO NIK K V25.49 CONTRACEPTION SURVEILLANCE (REPEAT RX) 02/26/2012 CARNEY DO NIK K V25.49 CONTRACEPTION SURVEILLANCE (REPEAT RX) 02/26/2012 CARNEY KAI TOLEDOA K V25.49 CONTRACEPTION SURVEILLANCE (REPEAT RX) 02/26/2012 CARNEY DO, NIK K V25.49 CONTRACEPTION SURVEILLANCE (REPEAT RX) 02/26/2012 [employer]PERVISOR, RACHEL A V25.49 CONTRACEPTION SURVEILLANCE (REPEAT RX) 02/26/2012 [employer] SUPERVISOR, RACHEL A V25.49 CONTRACEPTION SURVEILLANCE (REPEAT RX) 02/26/2012 [employer] SUPERVISOR, RACHEL A V25.49 CONTRACEPTION SURVEILLANCE (REPEAT RX) 02/26/2012 CARNEY DO, NIK K V25.49 CONTRACEPTION SURVEILLANCE (REPEAT RX) 02/26/2012 CARNEY DO, NIK K V25.49 CONTRACEPTION SURVEILLANCE (REPEAT RX) 02/26/2012 CARNEY DO, NIK K V25.49 CONTRACEPTION SURVEILLANCE (REPEAT RX) 02/26/2012 CARNEY DO, NIK K V25.49 CONTRACEPTION SURVEILLANCE (REPEAT RX) 02/26/2012 SARA PAREKH MD V25.49 CONTRACEPTION SURVEILLANCE (REPEAT RX) 03/31/2012 EFRA LARA APRN 473.9 SINUSITIS (CHRONIC) 03/31/2012 CARNEY DO, NIK K 473.9 SINUSITIS (CHRONIC) 03/31/2012 473.9 SINUSITIS ( CHRONIC) 03/31/2012 473.9 SINUSITIS ( CHRONIC) 03/31/2012 473.9 SINUSITIS ( CHRONIC) 03/31/2012 473.9 SINUSITIS ( CHRONIC) 03/31/2012 473.9 SINUSITIS 03/31/2012 473.9 SINUSITIS 03/31/2012 473.9 SINUSITIS 03/31/2012 473.9 SINUSITIS 03/31/2012 473.9 SINUSITIS 03/31/2012 473.9 SINUSITIS 03/31/2012 CARNEY DO, NIK K 473.9 SINUSITIS 03/31/2012 CARNEY DO, NIK K 473.9 SINUSITIS 03/31/2012 CARNEY DO, NIK K 473.9 SINUSITIS 03/31/2012 CARNEY DO, NIK K 473.9 SINUSITIS 03/31/2012 CARNEY DO, NIK K 473.9 SINUSITIS 03/31/2012 CARNEY DO, NIK K 473.9 SINUSITIS 03/31/2012 CARNEY DO, NIK K 473.9 SINUSITIS 03/31/2012 CARNEY DO, NIK K 473.9 SINUSITIS 03/31/2012 CARNEY DO, NIK K 473.9 SINUSITIS 03/31/2012 CARNEY DO, NIK K 473.9 SINUSITIS 03/31/2012 CARNEY DO, NIK K 473.9 SINUSITIS 03/31/2012 CARNEY DO, NIK K 473.9 SINUSITIS 03/31/2012 CARNEY DO, NIK K 473.9 SINUSITIS 03/31/2012 CARNEY DO, NIK K 473.9 SINUSITIS 03/31/2012 CARNEY DO, NIK K 473.9 SINUSITIS 03/31/2012 CARNEY DO, NIK K 473.9 SINUSITIS 03/31/2012 CARNEY DO, NIK K 473.9 SINUSITIS 03/31/2012 [employer]VISOR, RACHEL A 473.9 SINUSITIS 03/31/2012 [employer] SUPERVISOR, RACHEL A 473.9 SINUSITIS 03/31/2012 [employer] SUPERVISOR, RACHEL A 473.9 SINUSITIS 03/31/2012 CARNEY DO, NIK K 473.9 SINUSITIS 03/31/2012 CANREY DO, NIK K 473.9 SINUSITIS 03/31/2012 CARNEY DO, NIK K 473.9 SINUSITIS 03/31/2012 CARNEY DO, NIK K 473.9 SINUSITIS 03/31/2012 IZABELLA PEREA, SARA Rahman 473.9 SINUSITIS 08/26/2012 716.90 UNSPECIFIED ARTHROPATHY SITE UNSPECIFIED 08/26/2012 719.45 PAIN IN JOINT INVOLVING PEL[place] [employer] AND THIGH 08/26/2012 V70.0 ROUTINE GENERAL MEDICAL EXAMINATION AT A HEALTH CARE FACILITY 08/26/2012 716.90 UNSPECIFIED ARTHROPATHY SITE UNSPECIFIED 08/26/2012 719.45 PAIN IN JOINT INVOLVING P[place] AND THIGH 08/26/2012 V70.0 ROUTINE GENERAL MEDICAL EXAMINATION AT A HEALTH CARE FACILITY 08/26/2012 716.90 UNSPECIFIED ARTHROPATHY SITE UNSPECIFIED 08/26/2012 719.45 PAIN IN JOINT INVOLVING PEL[employer] AND THIGH 08/26/2012 V70.0 ROUTINE GENERAL MEDICAL EXAMINATION AT A HEALTH CARE FACILITY 08/26/2012 716.90 UNSPECIFIED ARTHROPATHY SITE UNSPECIFIED 08/26/2012 719.45 PAIN IN JOINT INVOLVING P[place] AND THIGH 08/26/2012 V70.0 ROUTINE GENERAL MEDICAL EXAMINATION AT A HEALTH CARE FACILITY 08/26/2012 716.90 UNSPECIFIED ARTHROPATHY SITE UNSPECIFIED 08/26/2012 719.45 PAIN IN JOINT INVOLVING P[employer] AND THIGH 08/26/2012 V70.0 ROUTINE GENERAL MEDICAL EXAMINATION AT A HEALTH CARE FACILITY 08/26/2012 716.90 UNSPECIFIED ARTHROPATHY SITE UNSPECIFIED 08/26/2012 719.45 PAIN IN JOINT INVOLVING [place] AND THIGH 08/26/2012 V70.0 ROUTINE GENERAL MEDICAL EXAMINATION AT A HEALTH CARE FACILITY 08/26/2012 716.90 UNSPECIFIED ARTHROPATHY SITE UNSPECIFIED 08/26/2012 719.45 PAIN IN JOINT INVOLVING [employer] AND THIGH 08/26/2012 V70.0 ROUTINE GENERAL MEDICAL EXAMINATION AT A HEALTH CARE FACILITY 08/26/2012 716.90 UNSPECIFIED ARTHROPATHY SITE UNSPECIFIED 08/26/2012 719.45 PAIN IN JOINT INVOLVING [place] AND THIGH 08/26/2012 V70.0 ROUTINE GENERAL MEDICAL EXAMINATION AT A HEALTH CARE FACILITY 08/26/2012 716.90 UNSPECIFIED ARTHROPATHY SITE UNSPECIFIED 08/26/2012 719.45 PAIN IN JOINT INVOLVING [employer] AND THIGH 08/26/2012 V70.0 ROUTINE GENERAL MEDICAL EXAMINATION AT A HEALTH CARE FACILITY 08/26/2012 716.90 UNSPECIFIED ARTHROPATHY SITE UNSPECIFIED 08/26/2012 719.45 PAIN IN JOINT INVOLVING P[employer] AND THIGH 08/26/2012 V70.0 ROUTINE GENERAL MEDICAL EXAMINATION AT A HEALTH CARE FACILITY 08/26/2012 CARNEY DO NIK K 716.90 UNSPECIFIED ARTHROPATHY SITE UNSPECIFIED 08/26/2012 CARNEY DO NIK K 719.45 PAIN IN JOINT INVOLVING [employer] AND THIGH 08/26/2012 CARNEY DO NIK K V70.0 ROUTINE GENERAL MEDICAL EXAMINATION AT A HEALTH CARE FACILITY 08/26/2012 CARNEY DO NIK K 716.90 UNSPECIFIED ARTHROPATHY SITE UNSPECIFIED 08/26/2012 CARNEY DO NIK K 719.45 PAIN IN JOINT INVOLVING P[employer] AND THIGH 08/26/2012 CARNEY DO NIK K V70.0 ROUTINE GENERAL MEDICAL EXAMINATION AT A HEALTH CARE FACILITY 08/26/2012 CARNEY DO NIK K 716.90 UNSPECIFIED ARTHROPATHY SITE UNSPECIFIED 08/26/2012 CARNEY DO NIK K 719.45 PAIN IN JOINT INVOLVING P[employer] AND THIGH 08/26/2012 CARNEY DO NIK K V70.0 ROUTINE GENERAL MEDICAL EXAMINATION AT A HEALTH CARE FACILITY 08/26/2012 CARNEY DO NIK K 716.90 UNSPECIFIED ARTHROPATHY SITE UNSPECIFIED 08/26/2012 CARNEY DO, NIK K 719.45 PAIN IN JOINT INVOLVING PELV[employer] AND THIGH 08/26/2012 CARNEY DO, NIK K V70.0 ROUTINE GENERAL MEDICAL EXAMINATION AT A HEALTH CARE FACILITY 08/26/2012 CARNEY DO, NIK K 716.90 UNSPECIFIED ARTHROPATHY SITE UNSPECIFIED 08/26/2012 CARNEY DO, NIK K 719.45 PAIN IN JOINT INVOLVING [employer] AND THIGH 08/26/2012 CARNEY DO, NIK K V70.0 ROUTINE GENERAL MEDICAL EXAMINATION AT A HEALTH CARE FACILITY 08/26/2012 CARNEY DO, NIK K 716.90 UNSPECIFIED ARTHROPATHY SITE UNSPECIFIED 08/26/2012 CARNEY DO, NIK K 719.45 PAIN IN JOINT INVOLVING P[employer] AND THIGH 08/26/2012 CARNEY DO, NIK K V70.0 ROUTINE GENERAL MEDICAL EXAMINATION AT A HEALTH CARE FACILITY 08/26/2012 CARNEY DO, NIK K 716.90 UNSPECIFIED ARTHROPATHY SITE UNSPECIFIED 08/26/2012 CARNEY DO, NIK K 719.45 PAIN IN JOINT INVOLVING [employer] AND THIGH 08/26/2012 CARNEY DO, NIK K V70.0 ROUTINE GENERAL MEDICAL EXAMINATION AT A HEALTH CARE FACILITY 08/26/2012 CARNEY DO, NIK K 716.90 UNSPECIFIED ARTHROPATHY SITE UNSPECIFIED 08/26/2012 CARNEY DO, NIK K 719.45 PAIN IN JOINT INVOLVING [employer] AND THIGH 08/26/2012 CARNEY DO, NIK K V70.0 ROUTINE GENERAL MEDICAL EXAMINATION AT A HEALTH CARE FACILITY 08/26/2012 CARNEY DO, NIK K 716.90 UNSPECIFIED ARTHROPATHY SITE UNSPECIFIED 08/26/2012 CARNEY DO, NIK K 719.45 PAIN IN JOINT INVOLVING PELV[employer] AND THIGH 08/26/2012 CARNEY DO, NIK K V70.0 ROUTINE GENERAL MEDICAL EXAMINATION AT A HEALTH CARE FACILITY 08/26/2012 CARNEY DO, NIK K 716.90 UNSPECIFIED ARTHROPATHY SITE UNSPECIFIED 08/26/2012 CARNEY DO, NIK K 719.45 PAIN IN JOINT INVOLVING PELV[employer] AND THIGH 08/26/2012 CARNEY DO, NIK K V70.0 ROUTINE GENERAL MEDICAL EXAMINATION AT A HEALTH CARE FACILITY 08/26/2012 CARNEY DO, NIK K 716.90 UNSPECIFIED ARTHROPATHY SITE UNSPECIFIED 08/26/2012 CARNEY DO, NIK K 719.45 PAIN IN JOINT INVOLVING PEL[employer] AND THIGH 08/26/2012 CARNEY DO, NIK K V70.0 ROUTINE GENERAL MEDICAL EXAMINATION AT A HEALTH CARE FACILITY 08/26/2012 CARNEY DO, NIK K 716.90 UNSPECIFIED ARTHROPATHY SITE UNSPECIFIED 08/26/2012 CARNEY DO, NIK K 719.45 PAIN IN JOINT INVOLVING PELV[employer] AND THIGH 08/26/2012 CARNEY DO, NIK K V70.0 ROUTINE GENERAL MEDICAL EXAMINATION AT A HEALTH CARE FACILITY 08/26/2012 CARNEY DO NIK K 716.90 UNSPECIFIED ARTHROPATHY SITE UNSPECIFIED 08/26/2012 CARNEY DO NIK K 719.45 PAIN IN JOINT INVOLVING PEL[employer] AND THIGH 08/26/2012 CARNEY DO, NIK K V70.0 ROUTINE GENERAL MEDICAL EXAMINATION AT A HEALTH CARE FACILITY 08/26/2012 CARNEY DO, NIK K 716.90 UNSPECIFIED ARTHROPATHY SITE UNSPECIFIED 08/26/2012 CARNEY DO NIK K 719.45 PAIN IN JOINT INVOLVING PELV[employer] AND THIGH 08/26/2012 CARNEY DO, NIK K V70.0 ROUTINE GENERAL MEDICAL EXAMINATION AT A HEALTH CARE FACILITY 08/26/2012 CARNEY DO, NIK K 716.90 UNSPECIFIED ARTHROPATHY SITE UNSPECIFIED 08/26/2012 CARNEY DO, NIK K 719.45 PAIN IN JOINT INVOLVING PEL[employer] AND THIGH 08/26/2012 CARNEY DO, NIK K V70.0 ROUTINE GENERAL MEDICAL EXAMINATION AT A HEALTH CARE FACILITY 08/26/2012 CARNEY DO NIK K 716.90 UNSPECIFIED ARTHROPATHY SITE UNSPECIFIED 08/26/2012 CARNEY DO NIK K 719.45 PAIN IN JOINT INVOLVING PELV[employer] AND THIGH 08/26/2012 CARNEY DO, NIK K V70.0 ROUTINE GENERAL MEDICAL EXAMINATION AT A HEALTH CARE FACILITY 08/26/2012 CARNEY DO, NIK K 716.90 UNSPECIFIED ARTHROPATHY SITE UNSPECIFIED 08/26/2012 CARNEY DO, NIK K 719.45 PAIN IN JOINT INVOLVING PELV[employer] AND THIGH 08/26/2012 CARNEY DO, NKI K V70.0 ROUTINE GENERAL MEDICAL EXAMINATION AT A HEALTH CARE FACILITY 08/26/2012 [employer] SUPERVISOR, RACHEL A 716.90 UNSPECIFIED ARTHROPATHY SITE UNSPECIFIED 08/26/2012 [employer] SUPERVISOR, RACHEL A 719.45 PAIN IN JOINT INVOLVING PEL[employer] AND THIGH 08/26/2012 [employer] SUPERVISOR, RACHEL A V70.0 ROUTINE GENERAL MEDICAL EXAMINATION AT A HEALTH CARE FACILITY 08/26/2012 [employer] SUPERVISOR, RACHEL A 716.90 UNSPECIFIED ARTHROPATHY SITE UNSPECIFIED 08/26/2012 [employer] SUPERVISOR, RACHEL A 719.45 PAIN IN JOINT INVOLVING PELVIC [employer] AND THIGH 08/26/2012 [employer] SUPERVISOR, RACHEL A V70.0 ROUTINE GENERAL MEDICAL EXAMINATION AT A HEALTH CARE FACILITY 08/26/2012 [employer] SUPERVISOR, RACHEL A 716.90 UNSPECIFIED ARTHROPATHY SITE UNSPECIFIED 08/26/2012 [employer] SUPERVISOR, RACHEL A 719.45 PAIN IN JOINT INVOLVING PELV[employer] AND THIGH 08/26/2012 [employer] SUPERVISOR, RACHEL A V70.0 ROUTINE GENERAL MEDICAL EXAMINATION AT A HEALTH CARE FACILITY 08/26/2012 CARNEY DO, NIK K 716.90 UNSPECIFIED ARTHROPATHY SITE UNSPECIFIED 08/26/2012 CARNEY DO, NIK K 719.45 PAIN IN JOINT INVOLVING PEL[employer] AND THIGH 08/26/2012 CARNEY DO, NIK K V70.0 ROUTINE GENERAL MEDICAL EXAMINATION AT A HEALTH CARE FACILITY 08/26/2012 CARNEY DO, NIK K 716.90 UNSPECIFIED ARTHROPATHY SITE UNSPECIFIED 08/26/2012 CARNEY DO, NIK K 719.45 PAIN IN JOINT INVOLVING PELV[employer] AND THIGH 08/26/2012 CARNEY DO, NIK K V70.0 ROUTINE GENERAL MEDICAL EXAMINATION AT A HEALTH CARE FACILITY 08/26/2012 CARNEY DO, NIK K 716.90 UNSPECIFIED ARTHROPATHY SITE UNSPECIFIED 08/26/2012 CARNEY DO NIK K 719.45 PAIN IN JOINT INVOLVING PELV[employer] AND THIGH 08/26/2012 CARNEY DO, NIK K V70.0 ROUTINE GENERAL MEDICAL EXAMINATION AT A HEALTH CARE FACILITY 08/26/2012 CARNEY DO, NIK K 716.90 UNSPECIFIED ARTHROPATHY SITE UNSPECIFIED 08/26/2012 CARNEY DO, NIK K 719.45 PAIN IN JOINT INVOLVING PELV[employer] AND THIGH 08/26/2012 CARNEY DO, NIK K V70.0 ROUTINE GENERAL MEDICAL EXAMINATION AT A HEALTH CARE FACILITY 08/26/2012 SARA PAREKH MD 716.90 UNSPECIFIED ARTHROPATHY SITE UNSPECIFIED 08/26/2012 SARA PAREKH MD 719.45 PAIN IN JOINT INVOLVING PELVIC [employer] AND THIGH 08/26/2012 IZABELLA PEREA SARA Rahman V70.0 ROUTINE GENERAL MEDICAL EXAMINATION AT A HEALTH CARE FACILITY 08/31/2012 242.90 HYPERTHYROIDISM 08/31/2012 714.0 RHEUMATOID ARTHRITIS 08/31/2012 V58.69 HIGH RISK MEDICATION 08/31/2012 242.90 HYPERTHYROIDISM 08/31/2012 714.0 RHEUMATOID ARTHRITIS 08/31/2012 V58.69 HIGH RISK MEDICATION 08/31/2012 242.90 HYPERTHYROIDISM 08/31/2012 714.0 RHEUMATOID ARTHRITIS 08/31/2012 V58.69 HIGH RISK MEDICATION 08/31/2012 242.90 HYPERTHYROIDISM 08/31/2012 714.0 RHEUMATOID ARTHRITIS 08/31/2012 V58.69 HIGH RISK MEDICATION 08/31/2012 242.90 HYPERTHYROIDISM 08/31/2012 714.0 RHEUMATOID ARTHRITIS 08/31/2012 V58.69 HIGH RISK MEDICATION 08/31/2012 242.90 HYPERTHYROIDISM 08/31/2012 714.0 RHEUMATOID ARTHRITIS 08/31/2012 V58.69 HIGH RISK MEDICATION 08/31/2012 242.90 HYPERTHYROIDISM 08/31/2012 714.0 RHEUMATOID ARTHRITIS 08/31/2012 V58.69 HIGH RISK MEDICATION 08/31/2012 242.90 HYPERTHYROIDISM 08/31/2012 714.0 RHEUMATOID ARTHRITIS 08/31/2012 V58.69 HIGH RISK MEDICATION 08/31/2012 242.90 HYPERTHYROIDISM 08/31/2012 714.0 RHEUMATOID ARTHRITIS 08/31/2012 V58.69 HIGH RISK MEDICATION 08/31/2012 CARNEY DO, NIK K 242.90 HYPERTHYROIDISM 08/31/2012 CARNEY DO, NIK K 714.0 RHEUMATOID ARTHRITIS 08/31/2012 CARNEY DO, NIK K V58.69 HIGH RISK MEDICATION 08/31/2012 CARNEY DO, NIK K 242.90 HYPERTHYROIDISM 08/31/2012 CARNEY DO, NIK K 714.0 RHEUMATOID ARTHRITIS 08/31/2012 CARNEY DO, NIK K V58.69 HIGH RISK MEDICATION 08/31/2012 CARNEY DO, NIK K 242.90 HYPERTHYROIDISM 08/31/2012 CARNEY DO, NIK K 714.0 RHEUMATOID ARTHRITIS 08/31/2012 CARNEY DO, NIK K V58.69 HIGH RISK MEDICATION 08/31/2012 CARNEY DO, NIK K 242.90 HYPERTHYROIDISM 08/31/2012 CARNEY DO, NIK K 714.0 RHEUMATOID ARTHRITIS 08/31/2012 CARNEY DO, NIK K V58.69 HIGH RISK MEDICATION 08/31/2012 CARNEY DO, NIK K 242.90 HYPERTHYROIDISM 08/31/2012 CARNEY DO, NIK K 714.0 RHEUMATOID ARTHRITIS 08/31/2012 CARNEY DO, NIK K V58.69 HIGH RISK MEDICATION 08/31/2012 CARNEY DO, NIK K 242.90 HYPERTHYROIDISM 08/31/2012 CARNEY DO, NIK K 714.0 RHEUMATOID ARTHRITIS 08/31/2012 CARNEY DO, NIK K V58.69 HIGH RISK MEDICATION 08/31/2012 CARNEY DO, NIK K 242.90 HYPERTHYROIDISM 08/31/2012 CARNEY DO, NIK K 714.0 RHEUMATOID ARTHRITIS 08/31/2012 CARNEY DO, NIK K V58.69 HIGH RISK MEDICATION 08/31/2012 CARNEY DO, NIK K 242.90 HYPERTHYROIDISM 08/31/2012 CARNEY DO, NIK K 714.0 RHEUMATOID ARTHRITIS 08/31/2012 CARNEY DO, NIK K V58.69 HIGH RISK MEDICATION 08/31/2012 CARNEY DO, NIK K 242.90 HYPERTHYROIDISM 08/31/2012 CARNEY DO, NIK K 714.0 RHEUMATOID ARTHRITIS 08/31/2012 CARNEY DO, NIK K V58.69 HIGH RISK MEDICATION 08/31/2012 CARNEY DO, NIK K 242.90 HYPERTHYROIDISM 08/31/2012 CARNEY DO, NIK K 714.0 RHEUMATOID ARTHRITIS 08/31/2012 CARNEY DO, NIK K V58.69 HIGH RISK MEDICATION 08/31/2012 CARNEY DO, NKI K 242.90 HYPERTHYROIDISM 08/31/2012 CARNEY DO, NIK K 714.0 RHEUMATOID ARTHRITIS 08/31/2012 CARNEY DO, NIK K V58.69 HIGH RISK MEDICATION 08/31/2012 CARNEY DO, NIK K 242.90 HYPERTHYROIDISM 08/31/2012 CARNEY DO, NIK K 714.0 RHEUMATOID ARTHRITIS 08/31/2012 CRANEY DO, NIK K V58.69 HIGH RISK MEDICATION 08/31/2012 CARNEY DO, NIK K 242.90 HYPERTHYROIDISM 08/31/2012 CARNEY DO, NIK K 714.0 RHEUMATOID ARTHRITIS 08/31/2012 CARNEY DO, NIK K V58.69 HIGH RISK MEDICATION 08/31/2012 CARNEY DO, NIK K 242.90 HYPERTHYROIDISM 08/31/2012 CARNEY DO, NIK K 714.0 RHEUMATOID ARTHRITIS 08/31/2012 CARNEY DO, NIK K V58.69 HIGH RISK MEDICATION 08/31/2012 CARNEY DO, NIK K 242.90 HYPERTHYROIDISM 08/31/2012 CARNEY DO, NIK K 714.0 RHEUMATOID ARTHRITIS 08/31/2012 CARNEY DO, NIK K V58.69 HIGH RISK MEDICATION 08/31/2012 CARNEY DO, NIK K 242.90 HYPERTHYROIDISM 08/31/2012 CARNEY DO, NIK K 714.0 RHEUMATOID ARTHRITIS 08/31/2012 CARNEY DO, NIK K V58.69 HIGH RISK MEDICATION 08/31/2012 CARNEY DO, NIK K 242.90 HYPERTHYROIDISM 08/31/2012 CARNEY DO, NIK K 714.0 RHEUMATOID ARTHRITIS 08/31/2012 CARNEY DO, NIK K V58.69 HIGH RISK MEDICATION 08/31/2012 [employer] SUPERVISOR, RACHEL A 242.90 HYPERTHYROIDISM 08/31/2012 [employer] SUPERVISOR, RACHEL A 714.0 RHEUMATOID ARTHRITIS 08/31/2012 [employer] SUPERVISOR, RACHEL A V58.69 HIGH RISK MEDICATION 08/31/2012 [employer] SUPERVISOR, RACHEL A 242.90 HYPERTHYROIDISM 08/31/2012 [employer] SUPERVISOR, RACHEL A 714.0 RHEUMATOID ARTHRITIS 08/31/2012 [employer] SUPERVISOR, RACHEL A V58.69 HIGH RISK MEDICATION 08/31/2012 [employer] SUPERVISOR, RACHEL A 242.90 HYPERTHYROIDISM 08/31/2012 [employer] SUPERVISOR, RACHEL A 714.0 RHEUMATOID ARTHRITIS 08/31/2012 [employer] SUPERVISOR, RACHEL A V58.69 HIGH RISK MEDICATION 08/31/2012 CARNEY DO, NIK K 242.90 HYPERTHYROIDISM 08/31/2012 CARNEY DO, NIK K 714.0 RHEUMATOID ARTHRITIS 08/31/2012 CARNEY DO, NIK K V58.69 HIGH RISK MEDICATION 08/31/2012 CARNEY DO, NIK K 242.90 HYPERTHYROIDISM 08/31/2012 CARNEY DO, NIK K 714.0 RHEUMATOID ARTHRITIS 08/31/2012 CARNEY DO, NIK K V58.69 HIGH RISK MEDICATION 08/31/2012 CARNEY DO, NIK K 242.90 HYPERTHYROIDISM 08/31/2012 CARNEY DO, NIK K 714.0 RHEUMATOID ARTHRITIS 08/31/2012 CARNEY DO, NIK K V58.69 HIGH RISK MEDICATION 08/31/2012 CARNEY DO, NIK K 242.90 HYPERTHYROIDISM 08/31/2012 CARNEY DO, NIK K 714.0 RHEUMATOID ARTHRITIS 08/31/2012 CARNEY DO, NIK K V58.69 HIGH RISK MEDICATION 08/31/2012 SARA PAREKH MD 242.90 HYPERTHYROIDISM 08/31/2012 SARA PAREKH MD N 714.0 RHEUMATOID ARTHRITIS 08/31/2012 SARA PAREKH MD V58.69 HIGH RISK MEDICATION 09/22/2012 427.89 SINUS BRADYCARDIA 09/22/2012 427.89 SINUS BRADYCARDIA 09/22/2012 427.89 SINUS BRADYCARDIA 09/22/2012 427.89 SINUS BRADYCARDIA 09/22/2012 427.89 SINUS BRADYCARDIA 09/22/2012 427.89 SINUS BRADYCARDIA 09/22/2012 CARNEY DO, NIK K 427.89 SINUS BRADYCARDIA 09/22/2012 CARNEY DO, NIK K 427.89 SINUS BRADYCARDIA 09/22/2012 CARNEY DO, NIK K 427.89 SINUS BRADYCARDIA 09/22/2012 CARNEY DO, NIK K 427.89 SINUS BRADYCARDIA 09/22/2012 CARNEY DO, NIK K 427.89 SINUS BRADYCARDIA 09/22/2012 CARNEY DO, NIK K 427.89 SINUS BRADYCARDIA 09/22/2012 CARNEY DO, NIK K 427.89 SINUS BRADYCARDIA 09/22/2012 CARNEY DO, NIK K 427.89 SINUS BRADYCARDIA 09/22/2012 CARNEY DO, NIK K 427.89 SINUS BRADYCARDIA 09/22/2012 CANREY DO, NIK K 427.89 SINUS BRADYCARDIA 09/22/2012 CARNEY DO, NIK K 427.89 SINUS BRADYCARDIA 09/22/2012 CARNEY DO, NIK K 427.89 SINUS BRADYCARDIA 09/22/2012 CARNEY DO, NIK K 427.89 SINUS BRADYCARDIA 09/22/2012 CARNEY DO, NIK K 427.89 SINUS BRADYCARDIA 09/22/2012 CARNEY DO, NIK K 427.89 SINUS BRADYCARDIA 09/22/2012 CARNEY DO, NIK K 427.89 SINUS BRADYCARDIA 09/22/2012 CARNEY DO, NIK K 427.89 SINUS BRADYCARDIA 09/22/2012 [employer] SUPERVISOR, RACHEL A 427.89 SINUS BRADYCARDIA 09/22/2012 [employer] SUPERVISOR, RACHEL A 427.89 SINUS BRADYCARDIA 09/22/2012 [employer] SUPERVISOR, RACHEL A 427.89 SINUS BRADYCARDIA 09/22/2012 CARNEY DO, NIK K 427.89 SINUS BRADYCARDIA 09/22/2012 CARNEY DO, INK K 427.89 SINUS BRADYCARDIA 09/22/2012 CARNEY DO, NIK K 427.89 SINUS BRADYCARDIA 09/22/2012 CARNEY DO, NIK K 427.89 SINUS BRADYCARDIA 09/22/2012 IZABELLA PEREA, SARA Rahman 427.89 SINUS BRADYCARDIA 09/24/2012 427.69 OTHER PREMATURE BEATS 09/24/2012 427.69 OTHER PREMATURE BEATS 09/24/2012 427.69 OTHER PREMATURE BEATS 09/24/2012 427.69 OTHER PREMATURE BEATS 09/24/2012 427.69 OTHER PREMATURE BEATS 09/24/2012 CARNEY DO, NIK K 427.69 OTHER PREMATURE BEATS 09/24/2012 CARNEY DO, NIK K 427.69 OTHER PREMATURE BEATS 09/24/2012 CARNEY DO, NIK K 427.69 OTHER PREMATURE BEATS 09/24/2012 CARNEY DO, NIK K 427.69 OTHER PREMATURE BEATS 09/24/2012 CARNEY DO, NIK K 427.69 OTHER PREMATURE BEATS 09/24/2012 CARNEY DO, NIK K 427.69 OTHER PREMATURE BEATS 09/24/2012 CARNEY DO, NIK K 427.69 OTHER PREMATURE BEATS 09/24/2012 CARNEY DO, NIK K 427.69 OTHER PREMATURE BEATS 09/24/2012 CARNEY DO, NIK K 427.69 OTHER PREMATURE BEATS 09/24/2012 CARNEY DO, NIK K 427.69 OTHER PREMATURE BEATS 09/24/2012 CARNEY DO, NIK K 427.69 OTHER PREMATURE BEATS 09/24/2012 CARNEY DO, NIK K 427.69 OTHER PREMATURE BEATS 09/24/2012 CARNEY DO, NIK K 427.69 OTHER PREMATURE BEATS 09/24/2012 CARNEY DO, NIK K 427.69 OTHER PREMATURE BEATS 09/24/2012 CARNEY DO, NIK K 427.69 OTHER PREMATURE BEATS 09/24/2012 CARNEY DO, NIK K 427.69 OTHER PREMATURE BEATS 09/24/2012 CARNEY DO, NIK K 427.69 OTHER PREMATURE BEATS 09/24/2012 [employer] SUPERVISOR, RACHEL A 427.69 OTHER PREMATURE BEATS 09/24/2012 [employer] SUPERVISOR, RACHEL A 427.69 OTHER PREMATURE BEATS 09/24/2012 [employer] SUPERVISOR, RACHEL A 427.69 OTHER PREMATURE BEATS 09/24/2012 CARNEY DO, NIK K 427.69 OTHER PREMATURE BEATS 09/24/2012 CARNEY DO, NIK K 427.69 OTHER PREMATURE BEATS 09/24/2012 CARNEY DO, NIK K 427.69 OTHER PREMATURE BEATS 09/24/2012 CARNEY DO, NIK K 427.69 OTHER PREMATURE BEATS 09/24/2012 SARA PAREKH MD 427.69 OTHER PREMATURE BEATS 10/29/2012 785.1 PALPITATIONS 10/29/2012 785.1 PALPITATIONS 10/29/2012 785.1 PALPITATIONS 10/29/2012 CARNEY DO, NIK K 785.1 PALPITATIONS 10/29/2012 CARNEY DO, NIK K 785.1 PALPITATIONS 10/29/2012 CARNEY DO, NIK K 785.1 PALPITATIONS 10/29/2012 CARNEY DO, NIK K 785.1 PALPITATIONS 10/29/2012 CARNEY DO, NIK K 785.1 PALPITATIONS 10/29/2012 CARNEY DO, NIK K 785.1 PALPITATIONS 10/29/2012 CARNEY DO, NIK K 785.1 PALPITATIONS 10/29/2012 CARNEY DO, NIK K 785.1 PALPITATIONS 10/29/2012 CARNEY DO, NIK K 785.1 PALPITATIONS 10/29/2012 CARNEY DO, NIK K 785.1 PALPITATIONS 10/29/2012 CARNEY DO, NIK K 785.1 PALPITATIONS 10/29/2012 CARNEY DO, NIK K 785.1 PALPITATIONS 10/29/2012 CARNEY DO, NIK K 785.1 PALPITATIONS 10/29/2012 CARNEY DO, NIK K 785.1 PALPITATIONS 10/29/2012 CARNEY DO, NIK K 785.1 PALPITATIONS 10/29/2012 CARNEY DO, NIK K 785.1 PALPITATIONS 10/29/2012 CARNEY DO, NIK K 785.1 PALPITATIONS 10/29/2012 [employer] SUPERVISOR, RACHEL A 785.1 PALPITATIONS 10/29/2012 [employer] SUPERVISOR, RACHEL A 785.1 PALPITATIONS 10/29/2012 [employer] SUPERVISOR, RACHEL A 785.1 PALPITATIONS 10/29/2012 CARNEY DO, NIK K 785.1 PALPITATIONS 10/29/2012 CARNEY DO, NIK K 785.1 PALPITATIONS 10/29/2012 CARNEY DO, NIK K 785.1 PALPITATIONS 10/29/2012 CARNEY DO, NIK K 785.1 PALPITATIONS 10/29/2012 IZABELLA PEREA, SARA Rahman 785.1 PALPITATIONS 11/24/2012 623.5 LEUKORRHEA NOT SPECIFIED INFECTIVE 11/24/2012 V25.9 CONTRACEPTION MANAGEMENT 11/24/2012 V73.81 HPV SCREENING 11/24/2012 V76.10 BREAST CANCER SCREENING 11/24/2012 V76.2 CERVICAL CANCER SCREENING (PAP SMEAR) 11/24/2012 623.5 LEUKORRHEA NOT SPECIFIED INFECTIVE 11/24/2012 V25.9 CONTRACEPTION MANAGEMENT 11/24/2012 V73.81 HPV SCREENING 11/24/2012 V76.10 BREAST CANCER SCREENING 11/24/2012 V76.2 CERVICAL CANCER SCREENING (PAP SMEAR) 11/24/2012 CARNEY DO NIK K 623.5 LEUKORRHEA NOT SPECIFIED INFECTIVE 11/24/2012 CARNEY DO NIK K V25.9 CONTRACEPTION MANAGEMENT 11/24/2012 CARNEY DO NIK K V73.81 HPV SCREENING 11/24/2012 CARNEY KAI TOLEDOA K V76.10 BREAST CANCER SCREENING 11/24/2012 CARNEY KAI TOLEDOA K V76.2 CERVICAL CANCER SCREENING (PAP SMEAR) 11/24/2012 CARNEY DO NIK K 623.5 LEUKORRHEA NOT SPECIFIED INFECTIVE 11/24/2012 CARNEY KAI TOLEDOA K V25.9 CONTRACEPTION MANAGEMENT 11/24/2012 CARNEY KAI TOLEDOA K V73.81 HPV SCREENING 11/24/2012 CARNEY DO NIK K V76.10 BREAST CANCER SCREENING 11/24/2012 CARNEY DO NIK K V76.2 CERVICAL CANCER SCREENING (PAP SMEAR) 11/24/2012 KAI CARNEY DOA K 623.5 LEUKORRHEA NOT SPECIFIED INFECTIVE 11/24/2012 ANGELIKA TOLEDO NIK K V25.9 CONTRACEPTION MANAGEMENT 11/24/2012 CARNEY DO NIK K V73.81 HPV SCREENING 11/24/2012 CARNEY DO NIK K V76.10 BREAST CANCER SCREENING 11/24/2012 CARNEY DO NIK K V76.2 CERVICAL CANCER SCREENING (PAP SMEAR) 11/24/2012 CARNEY DO NIK K 623.5 LEUKORRHEA NOT SPECIFIED INFECTIVE 11/24/2012 CARNEY DO NIK K V25.9 CONTRACEPTION MANAGEMENT 11/24/2012 CARNEY DO NIK K V73.81 HPV SCREENING 11/24/2012 CARNEY DO NIK K V76.10 BREAST CANCER SCREENING 11/24/2012 CARNEY DO NIK K V76.2 CERVICAL CANCER SCREENING (PAP SMEAR) 11/24/2012 CARNEY DO NIK K 623.5 LEUKORRHEA NOT SPECIFIED INFECTIVE 11/24/2012 CARNEY DO NIK K V25.9 CONTRACEPTION MANAGEMENT 11/24/2012 CARNEY DO NIK K V73.81 HPV SCREENING 11/24/2012 CARNEY DO NIK K V76.10 BREAST CANCER SCREENING 11/24/2012 CARNEY DO NIK K V76.2 CERVICAL CANCER SCREENING (PAP SMEAR) 11/24/2012 CARNEY DO NIK K 623.5 LEUKORRHEA NOT SPECIFIED INFECTIVE 11/24/2012 CARNEY DO NIK K V25.9 CONTRACEPTION MANAGEMENT 11/24/2012 CARNEY DO NIK K V73.81 HPV SCREENING 11/24/2012 CARNEY DO NIK K V76.10 BREAST CANCER SCREENING 11/24/2012 CARNEY DO NIK K V76.2 CERVICAL CANCER SCREENING (PAP SMEAR) 11/24/2012 CARNEY DO NIK K 623.5 LEUKORRHEA NOT SPECIFIED INFECTIVE 11/24/2012 CARNEY DO NIK K V25.9 CONTRACEPTION MANAGEMENT 11/24/2012 CARNEY DO NIK K V73.81 HPV SCREENING 11/24/2012 CARNEY DO NIK K V76.10 BREAST CANCER SCREENING 11/24/2012 CARNEY DO NIK K V76.2 CERVICAL CANCER SCREENING (PAP SMEAR) 11/24/2012 CARNEY DO NIK K 623.5 LEUKORRHEA NOT SPECIFIED INFECTIVE 11/24/2012 CARNEY DO NIK K V25.9 CONTRACEPTION MANAGEMENT 11/24/2012 CARNEY DO NIK K V73.81 HPV SCREENING 11/24/2012 CARNEY DO NIK K V76.10 BREAST CANCER SCREENING 11/24/2012 CARNEY DO NIK K V76.2 CERVICAL CANCER SCREENING (PAP SMEAR) 11/24/2012 CARNEY DO NIK K 623.5 LEUKORRHEA NOT SPECIFIED INFECTIVE 11/24/2012 CARNEY DO NIK K V25.9 CONTRACEPTION MANAGEMENT 11/24/2012 CARNEY DO NIK K V73.81 HPV SCREENING 11/24/2012 CARNEY DO NIK K V76.10 BREAST CANCER SCREENING 11/24/2012 CARNEY DO NIK K V76.2 CERVICAL CANCER SCREENING (PAP SMEAR) 11/24/2012 CARNEY DO NIK K 623.5 LEUKORRHEA NOT SPECIFIED INFECTIVE 11/24/2012 CARNEY DO NIK K V25.9 CONTRACEPTION MANAGEMENT 11/24/2012 CARNEY DO NIK K V73.81 HPV SCREENING 11/24/2012 CARNEY DO NIK K V76.10 BREAST CANCER SCREENING 11/24/2012 CARNEY DO NIK K V76.2 CERVICAL CANCER SCREENING (PAP SMEAR) 11/24/2012 CARNEY DO NIK K 623.5 LEUKORRHEA NOT SPECIFIED INFECTIVE 11/24/2012 CARNEY DO NIK K V25.9 CONTRACEPTION MANAGEMENT 11/24/2012 CARNEY DO NIK K V73.81 HPV SCREENING 11/24/2012 CARNEY DO NIK K V76.10 BREAST CANCER SCREENING 11/24/2012 CARNEY DO NIK K V76.2 CERVICAL CANCER SCREENING (PAP SMEAR) 11/24/2012 CARNEY DO NIK K 623.5 LEUKORRHEA NOT SPECIFIED INFECTIVE 11/24/2012 KAI CARNEY DOA K V25.9 CONTRACEPTION MANAGEMENT 11/24/2012 CARNEY DO NIK K V73.81 HPV SCREENING 11/24/2012 CARNEY DO NIK K V76.10 BREAST CANCER SCREENING 11/24/2012 CARNEY DO NIK K V76.2 CERVICAL CANCER SCREENING (PAP SMEAR) 11/24/2012 CARNEY DO NIK K 623.5 LEUKORRHEA NOT SPECIFIED INFECTIVE 11/24/2012 CARNEY DO NIK K V25.9 CONTRACEPTION MANAGEMENT 11/24/2012 CARNEY DO NIK K V73.81 HPV SCREENING 11/24/2012 ANGELIKA TOLEDO NIK K V76.10 BREAST CANCER SCREENING 11/24/2012 CARNEY DO NIK K V76.2 CERVICAL CANCER SCREENING (PAP SMEAR) 11/24/2012 CARNEY DO NIK K 623.5 LEUKORRHEA NOT SPECIFIED INFECTIVE 11/24/2012 CARNEY DO NIK K V25.9 CONTRACEPTION MANAGEMENT 11/24/2012 CARNEY DO NIK K V73.81 HPV SCREENING 11/24/2012 CARNEY DO NIK K V76.10 BREAST CANCER SCREENING 11/24/2012 CARNEY DO NIK K V76.2 CERVICAL CANCER SCREENING (PAP SMEAR) 11/24/2012 CARNEY DO NIK K 623.5 LEUKORRHEA NOT SPECIFIED INFECTIVE 11/24/2012 CARNEY DO NIK K V25.9 CONTRACEPTION MANAGEMENT 11/24/2012 CARNEY DO NIK K V73.81 HPV SCREENING 11/24/2012 CARNEY DO NIK K V76.10 BREAST CANCER SCREENING 11/24/2012 CARNEY DO, NIK K V76.2 CERVICAL CANCER SCREENING (PAP SMEAR) 11/24/2012 CARNEY DO NIK K 623.5 LEUKORRHEA NOT SPECIFIED INFECTIVE 11/24/2012 CARNEY DO NIK K V25.9 CONTRACEPTION MANAGEMENT 11/24/2012 CARNEY DO, NIK K V73.81 HPV SCREENING 11/24/2012 CARNEY DO NIK K V76.10 BREAST CANCER SCREENING 11/24/2012 CARNEY DO NIK K V76.2 CERVICAL CANCER SCREENING (PAP SMEAR) 11/24/2012 CARNEY DO NIK K 623.5 LEUKORRHEA NOT SPECIFIED INFECTIVE 11/24/2012 CARNEY DO NIK K V25.9 CONTRACEPTION MANAGEMENT 11/24/2012 CARNEY NIK K V73.81 HPV SCREENING 11/24/2012 ANGELIKA TOLEDO NIK K V76.10 BREAST CANCER SCREENING 11/24/2012 CARNEY NIK K V76.2 CERVICAL CANCER SCREENING (PAP SMEAR) 11/24/2012 [employer] SUPERVISOR, RACHEL A 623.5 LEUKORRHEA NOT SPECIFIED INFECTIVE 11/24/2012 [employer] SUPERVISOR, RACHEL A V25.9 CONTRACEPTION MANAGEMENT 11/24/2012 [employer] SUPERVISOR, RACHEL A V73.81 HPV SCREENING 11/24/2012 [employer] SUPERVISOR, RACHEL A V76.10 BREAST CANCER SCREENING 11/24/2012 [employer] SUPERVISOR, RACHEL A V76.2 CERVICAL CANCER SCREENING (PAP SMEAR) 11/24/2012 [employer] SUPERVISOR, RACHEL A 623.5 LEUKORRHEA NOT SPECIFIED INFECTIVE 11/24/2012 [employer] SUPERVISOR, RACHEL A V25.9 CONTRACEPTION MANAGEMENT 11/24/2012 [employer] SUPERVISOR, RACHEL A V73.81 HPV SCREENING 11/24/2012 [employer] SUPERVISOR, RACHEL A V76.10 BREAST CANCER SCREENING 11/24/2012 [employer] SUPERVISOR, RACHEL A V76.2 CERVICAL CANCER SCREENING (PAP SMEAR) 11/24/2012 [employer] SUPERVISOR, RACHEL A 623.5 LEUKORRHEA NOT SPECIFIED INFECTIVE 11/24/2012 [employer] SUPERVISOR, RACHEL A V25.9 CONTRACEPTION MANAGEMENT 11/24/2012 CONCEPCIÓN NUR, RACHEL A V73.81 HPV SCREENING 11/24/2012 CONCEPCIÓN NUR, RACHEL A V76.10 BREAST CANCER SCREENING 11/24/2012 CONCEPCIÓN NUR, RACHEL A V76.2 CERVICAL CANCER SCREENING (PAP SMEAR) 11/24/2012 CARNEY DO NIK K 623.5 LEUKORRHEA NOT SPECIFIED INFECTIVE 11/24/2012 CARNEY DO, NIK K V25.9 CONTRACEPTION MANAGEMENT 11/24/2012 CARNEY DO, NIK K V73.81 HPV SCREENING 11/24/2012 CARNEY DO NIK K V76.10 BREAST CANCER SCREENING 11/24/2012 CARNEY DO NIK K V76.2 CERVICAL CANCER SCREENING (PAP SMEAR) 11/24/2012 CARNEY DO NIK K 623.5 LEUKORRHEA NOT SPECIFIED INFECTIVE 11/24/2012 CARNEY DO NIK K V25.9 CONTRACEPTION MANAGEMENT 11/24/2012 CARNEY DO NIK K V73.81 HPV SCREENING 11/24/2012 CARNEY DO NIK K V76.10 BREAST CANCER SCREENING 11/24/2012 CARNEY DO NIK K V76.2 CERVICAL CANCER SCREENING (PAP SMEAR) 11/24/2012 CARNEY DO NIK K 623.5 LEUKORRHEA NOT SPECIFIED INFECTIVE 11/24/2012 CARNEY DO NIK K V25.9 CONTRACEPTION MANAGEMENT 11/24/2012 CARNEY DO NIK K V73.81 HPV SCREENING 11/24/2012 CARNEY DO NIK K V76.10 BREAST CANCER SCREENING 11/24/2012 CARNEY DO NIK K V76.2 CERVICAL CANCER SCREENING (PAP SMEAR) 11/24/2012 CARNEY DO NIK K 623.5 LEUKORRHEA NOT SPECIFIED INFECTIVE 11/24/2012 CARNEY DO NIK K V25.9 CONTRACEPTION MANAGEMENT 11/24/2012 CARNEY DO NIK K V73.81 HPV SCREENING 11/24/2012 CARNEY DO, NIK K V76.10 BREAST CANCER SCREENING 11/24/2012 CARNEY DO NIK K V76.2 CERVICAL CANCER SCREENING (PAP SMEAR) 11/24/2012 SARA PAREKH MD 623.5 LEUKORRHEA NOT SPECIFIED INFECTIVE 11/24/2012 SARA PAREKH MD N V25.9 CONTRACEPTION MANAGEMENT 11/24/2012 SARA PAREKH MD V73.81 HPV SCREENING 11/24/2012 SARA PAREKH MD V76.10 BREAST CANCER SCREENING 11/24/2012 SARA PAREKH MD V76.2 CERVICAL CANCER SCREENING (PAP SMEAR) 12/24/2012 780.52 INSOMNIA UNSPECIFIED 12/24/2012 CARNEY DO, NIK K 780.52 INSOMNIA UNSPECIFIED 12/24/2012 CARNEY DO, NIK K 780.52 INSOMNIA UNSPECIFIED 12/24/2012 CARNEY DO, NIK K 780.52 INSOMNIA UNSPECIFIED 12/24/2012 CARNEY DO, NIK K 780.52 INSOMNIA UNSPECIFIED 12/24/2012 CARNEY DO, NIK K 780.52 INSOMNIA UNSPECIFIED 12/24/2012 CARNEY DO, NIK K 780.52 INSOMNIA UNSPECIFIED 12/24/2012 CARNEY DO, NIK K 780.52 INSOMNIA UNSPECIFIED 12/24/2012 CARNEY DO, NIK K 780.52 INSOMNIA UNSPECIFIED 12/24/2012 CARNEY DO, NIK K 780.52 INSOMNIA UNSPECIFIED 12/24/2012 CARNEY DO, NIK K 780.52 INSOMNIA UNSPECIFIED 12/24/2012 CARNEY DO, NIK K 780.52 INSOMNIA UNSPECIFIED 12/24/2012 CARNEY DO, NIK K 780.52 INSOMNIA UNSPECIFIED 12/24/2012 CARNEY DO, NIK K 780.52 INSOMNIA UNSPECIFIED 12/24/2012 CARNEY DO, NIK K 780.52 INSOMNIA UNSPECIFIED 12/24/2012 CARNEY DO, NIK K 780.52 INSOMNIA UNSPECIFIED 12/24/2012 CARNEY DO, NIK K 780.52 INSOMNIA UNSPECIFIED 12/24/2012 CARNEY DO, NIK K 780.52 INSOMNIA UNSPECIFIED 12/24/2012 [employer] SUPERVISOR, RACHEL A 780.52 INSOMNIA UNSPECIFIED 12/24/2012 [employer] SUPERVISOR, RACHEL A 780.52 INSOMNIA UNSPECIFIED 12/24/2012 [employer] SUPERVISOR, RACHEL A 780.52 INSOMNIA UNSPECIFIED 12/24/2012 CARNEY DO, NIK K 780.52 INSOMNIA UNSPECIFIED 12/24/2012 CARNEY DO, NIK K 780.52 INSOMNIA UNSPECIFIED 12/24/2012 CARNEY DO, NIK K 780.52 INSOMNIA UNSPECIFIED 12/24/2012 CARNEY DO, NIK K 780.52 INSOMNIA UNSPECIFIED 12/24/2012 IZABELLA PEREA, SARA Rahman 780.52 INSOMNIA UNSPECIFIED 03/06/2013 CARNEY DO, NIK K V04.81 FLU SHOT 03/06/2013 CARNEY DO, NIK K V04.81 FLU SHOT 03/06/2013 CARNEY DO, NIK K V04.81 FLU SHOT 03/06/2013 CARNEY DO, NIK K V04.81 FLU SHOT 03/06/2013 CARNEY DO, NIK K V04.81 FLU SHOT 03/06/2013 CARNEY DO, NIK K V04.81 FLU SHOT 03/06/2013 CARNEY DO, NIK K V04.81 FLU SHOT 03/06/2013 CARNEY DO, NIK K V04.81 FLU SHOT 03/06/2013 CARNEY DO, NIK K V04.81 FLU SHOT 03/06/2013 CARNEY DO, NIK K V04.81 FLU SHOT 03/06/2013 CARNEY DO, NIK K V04.81 FLU SHOT 03/06/2013 CARNEY DO, NIK K V04.81 FLU SHOT 03/06/2013 CARNEY DO, NIK K V04.81 FLU SHOT 03/06/2013 CARNEY DO, NIK K V04.81 FLU SHOT 03/06/2013 CARNEY DO, NIK K V04.81 FLU SHOT 03/06/2013 CARNEY DO, NIK K V04.81 FLU SHOT 03/06/2013 [employer] SUPERVISOR, RACHEL A V04.81 FLU SHOT 03/06/2013 [employer] SUPERVISOR, RACHEL A V04.81 FLU SHOT 03/06/2013 [employer] SUPERVISOR, RACHEL A V04.81 FLU SHOT 03/06/2013 CARNEY DO, NIK K V04.81 FLU SHOT 03/06/2013 CARNEY DO, NIK K V04.81 FLU SHOT 03/06/2013 CARNEY DO, NIK K V04.81 FLU SHOT 03/06/2013 CARNEY DO, NIK K V04.81 FLU SHOT 03/06/2013 IZABELLA PEREA, SARA Rahman V04.81 FLU SHOT 03/13/2013 CARNEY DO, NIK K 079.4 HPV 03/13/2013 CARNEY DO, NIK Avila 795.01 ABNORMAL PAP - ASCUS 03/13/2013 CARNEY DO, NIK K 079.4 HPV 03/13/2013 CARNEY DO, NIK K 795.01 ABNORMAL PAP - ASCUS 03/13/2013 CARNEY DO, NIK K 079.4 HPV 03/13/2013 CARNEY DO, NIK K 795.01 ABNORMAL PAP - ASCUS 03/13/2013 CARNEY DO, NIK K 079.4 HPV 03/13/2013 CARNEY DO, NIK K 795.01 ABNORMAL PAP - ASCUS 03/13/2013 CARNEY DO, NIK K 079.4 HPV 03/13/2013 CARNEY DO, NIK K 795.01 ABNORMAL PAP - ASCUS 03/13/2013 CARNEY DO, NIK K 079.4 HPV 03/13/2013 CARNEY DO, NIK K 795.01 ABNORMAL PAP - ASCUS 03/13/2013 CARNEY DO, NIK K 079.4 HPV 03/13/2013 CARNEY DO, NIK K 795.01 ABNORMAL PAP - ASCUS 03/13/2013 CARNEY DO, NIK K 079.4 HPV 03/13/2013 CARNEY DO, NIK K 795.01 ABNORMAL PAP - ASCUS 03/13/2013 CARNEY DO, NIK K 079.4 HPV 03/13/2013 CARNEY DO, NIK K 795.01 ABNORMAL PAP - ASCUS 03/13/2013 CARNEY DO, NIK K 079.4 HPV 03/13/2013 CARNEY DO, NIK K 795.01 ABNORMAL PAP - ASCUS 03/13/2013 CARNEY DO, NIK K 079.4 HPV 03/13/2013 CARNEY DO, NIK K 795.01 ABNORMAL PAP - ASCUS 03/13/2013 CARNEY DO, NIK K 079.4 HPV 03/13/2013 CARNEY DO, NIK K 795.01 ABNORMAL PAP - ASCUS 03/13/2013 CARNEY DO, NIK K 079.4 HPV 03/13/2013 CARNEY DO, NIK K 795.01 ABNORMAL PAP - ASCUS 03/13/2013 CARNEY DO, NIK K 079.4 HPV 03/13/2013 CARNEY DO, NIK K 795.01 ABNORMAL PAP - ASCUS 03/13/2013 CARNEY DO, NIK K 079.4 HPV 03/13/2013 CARNEY DO, NIK K 795.01 ABNORMAL PAP - ASCUS 03/13/2013 [employer], RACHEL A 079.4 HPV 03/13/2013 [employer]PERVISOR, RACHEL A 795.01 ABNORMAL PAP - [facility] 03/13/2013 [employer]VISOR, RACHEL A 079.4 HPV 03/13/2013 [employer] SUPERVISOR, RACHEL A 795.01 ABNORMAL PAP - [facility] 03/13/2013 [employer]VISOR, RACHEL A 079.4 HPV 03/13/2013 [employer]VISOR, RACHEL A 795.01 ABNORMAL PAP - [facility] 03/13/2013 CARNEY DO, NIK K 079.4 HPV 03/13/2013 CARNEY DO, NIK K 795.01 ABNORMAL PAP - [facility] 03/13/2013 CARNEY DO, NIK K 079.4 HPV 03/13/2013 CARNEY DO, NIK K 795.01 ABNORMAL PAP - [facility] 03/13/2013 CARNEY DO, NIK K 079.4 HPV 03/13/2013 CARNEY DO, NIK K 795.01 ABNORMAL PAP - [facility] 03/13/2013 CARNEY DO, NIK K 079.4 HPV 03/13/2013 CARNEY DO, NIK K 795.01 ABNORMAL PAP - [facility] 03/13/2013 IZABELLA PEREA, SARA N 079.4 HPV 03/13/2013 IZABELLA PEREA, SARA N 795.01 ABNORMAL PAP - [facility] 05/29/2013 CARNEY DO, NIK K 719.40 PAIN IN JOINT SITE UNSPECIFIED 05/29/2013 CARNEY DO NIK K 719.45 PAIN IN JOINT INVOLVING PELVIC REGION AND THIGH 05/29/2013 CARNEY DO NIK K 719.46 PAIN IN JOINT INVOLVING LOWER LEG 05/29/2013 CARNEY DO, NIK K 729.5 PAIN IN LIMB 05/29/2013 CARNEY DO, NIK K 719.40 PAIN IN JOINT SITE UNSPECIFIED 05/29/2013 CARNEY DO NIK K 719.45 PAIN IN JOINT INVOLVING PELVIC REGION AND THIGH 05/29/2013 CARNEY DO NIK K 719.46 PAIN IN JOINT INVOLVING LOWER LEG 05/29/2013 CARNEY DO NIK K 729.5 PAIN IN LIMB 05/29/2013 CARNEY DO NIK K 719.40 PAIN IN JOINT SITE UNSPECIFIED 05/29/2013 CARNEY DO NIK K 719.45 PAIN IN JOINT INVOLVING PELVIC REGION AND THIGH 05/29/2013 CARNEY DO, NIK K 719.46 PAIN IN JOINT INVOLVING LOWER LEG 05/29/2013 CARNEY DO, NIK K 729.5 PAIN IN LIMB 05/29/2013 CARNEY DO, NIK K 719.40 PAIN IN JOINT SITE UNSPECIFIED 05/29/2013 CARNEY DO, NIK K 719.45 PAIN IN JOINT INVOLVING PELVIC REGION AND THIGH 05/29/2013 CARNEY DO, NKI K 719.46 PAIN IN JOINT INVOLVING LOWER LEG 05/29/2013 CARNEY DO, NIK K 729.5 PAIN IN LIMB 05/29/2013 CARNEY DO, NIK K 719.40 PAIN IN JOINT SITE UNSPECIFIED 05/29/2013 CARNEY DO, NIK K 719.45 PAIN IN JOINT INVOLVING PELVIC REGION AND THIGH 05/29/2013 CARNEY DO, NIK K 719.46 PAIN IN JOINT INVOLVING LOWER LEG 05/29/2013 CARNEY DO, NIK K 729.5 PAIN IN LIMB 05/29/2013 CARNEY DO, NIK K 719.40 PAIN IN JOINT SITE UNSPECIFIED 05/29/2013 CARNEY DO, NIK K 719.45 PAIN IN JOINT INVOLVING PELVIC REGION AND THIGH 05/29/2013 CARNEY DO, NIK K 719.46 PAIN IN JOINT INVOLVING LOWER LEG 05/29/2013 CARNEY DO, NIK K 729.5 PAIN IN LIMB 05/29/2013 CARNEY DO, NIK K 719.40 PAIN IN JOINT SITE UNSPECIFIED 05/29/2013 CARNEY DO, NIK K 719.45 PAIN IN JOINT INVOLVING PELVIC REGION AND THIGH 05/29/2013 CARNEY DO, NIK K 719.46 PAIN IN JOINT INVOLVING LOWER LEG 05/29/2013 CARNEY DO, NIK K 729.5 PAIN IN LIMB 05/29/2013 CARNEY DO, NIK K 719.40 PAIN IN JOINT SITE UNSPECIFIED 05/29/2013 CARNEY DO, NIK K 719.45 PAIN IN JOINT INVOLVING PELVIC REGION AND THIGH 05/29/2013 CARNEY DO, NIK K 719.46 PAIN IN JOINT INVOLVING LOWER LEG 05/29/2013 CARNEY DO, NIK K 729.5 PAIN IN LIMB 05/29/2013 CARNEY DO, NIK K 719.40 PAIN IN JOINT SITE UNSPECIFIED 05/29/2013 CARNEY DO, NIK K 719.45 PAIN IN JOINT INVOLVING PELVIC REGION AND THIGH 05/29/2013 CARNEY DO, NIK K 719.46 PAIN IN JOINT INVOLVING LOWER LEG 05/29/2013 CARNEY DO, NIK K 729.5 PAIN IN LIMB 05/29/2013 CARNEY DO, NIK K 719.40 PAIN IN JOINT SITE UNSPECIFIED 05/29/2013 CARNEY DO, NIK K 719.45 PAIN IN JOINT INVOLVING PELVIC REGION AND THIGH 05/29/2013 CARNEY DO, NIK K 719.46 PAIN IN JOINT INVOLVING LOWER LEG 05/29/2013 CARNEY DO, NIK K 729.5 PAIN IN LIMB 05/29/2013 CARNEY DO, NIK K 719.40 PAIN IN JOINT SITE UNSPECIFIED 05/29/2013 CARNEY DO, NIK K 719.45 PAIN IN JOINT INVOLVING PELVIC REGION AND THIGH 05/29/2013 CARNEY DO, NIK K 719.46 PAIN IN JOINT INVOLVING LOWER LEG 05/29/2013 CARNEY DO, NIK K 729.5 PAIN IN LIMB 05/29/2013 CARNEY DO, NIK K 719.40 PAIN IN JOINT SITE UNSPECIFIED 05/29/2013 CARNEY DO, NIK K 719.45 PAIN IN JOINT INVOLVING PELVIC REGION AND THIGH 05/29/2013 CARNEY DO, NIK K 719.46 PAIN IN JOINT INVOLVING LOWER LEG 05/29/2013 CARNEY DO, NIK K 729.5 PAIN IN LIMB 05/29/2013 CARNEY DO, NIK K 719.40 PAIN IN JOINT SITE UNSPECIFIED 05/29/2013 CARNEY DO, NIK K 719.45 PAIN IN JOINT INVOLVING PELVIC REGION AND THIGH 05/29/2013 CARNEY DO, NIK K 719.46 PAIN IN JOINT INVOLVING LOWER LEG 05/29/2013 CARNEY DO, NIK K 729.5 PAIN IN LIMB 05/29/2013 [employer], RACHEL A 719.40 PAIN IN JOINT SITE UNSPECIFIED 05/29/2013 [employer]PERVISOR, RACHEL A 719.45 PAIN IN JOINT INVOLVING PELVIC REGION AND THIGH 05/29/2013 [employer]VISOR, RACHLE A 719.46 PAIN IN JOINT INVOLVING LOWER LEG 05/29/2013 [employer]VISOR, RACHEL A 729.5 PAIN IN LIMB 05/29/2013 [employer]PERVISOR, RACHEL A 719.40 PAIN IN JOINT SITE UNSPECIFIED 05/29/2013 [employer]PERVISOR, RACHEL A 719.45 PAIN IN JOINT INVOLVING PELVIC REGION AND THIGH 05/29/2013 [employer] SUPERVISOR, RACHEL A 719.46 PAIN IN JOINT INVOLVING LOWER LEG 05/29/2013 [employer]VISOR, RACHEL A 729.5 PAIN IN LIMB 05/29/2013 [employer]OR, RACHEL A 719.40 PAIN IN JOINT SITE UNSPECIFIED 05/29/2013 [employer]W SUPERVISOR, RACHEL A 719.45 PAIN IN JOINT INVOLVING PELVIC REGION AND THIGH 05/29/2013 [employer]CEPCI[employer]N [employer] CREW SUPERVISOR, RACHEL A 719.46 PAIN IN JOINT INVOLVING LOWER LEG 05/29/2013 [employer]CE[employer] SUPERVISOR, RACHEL A 729.5 PAIN IN LIMB 05/29/2013 CARNEY DO, NIK K 719.40 PAIN IN JOINT SITE UNSPECIFIED 05/29/2013 CARNEY DO, NIK K 719.45 PAIN IN JOINT INVOLVING PELVIC REGION AND THIGH 05/29/2013 CARNEY DO, NIK K 719.46 PAIN IN JOINT INVOLVING LOWER LEG 05/29/2013 CARNEY DO, NIK K 729.5 PAIN IN LIMB 05/29/2013 CARNEY DO, NIK K 719.40 PAIN IN JOINT SITE UNSPECIFIED 05/29/2013 CARNEY DO, NIK K 719.45 PAIN IN JOINT INVOLVING PELVIC REGION AND THIGH 05/29/2013 CARNEY DO, NIK K 719.46 PAIN IN JOINT INVOLVING LOWER LEG 05/29/2013 CARNEY DO, NIK K 729.5 PAIN IN LIMB 05/29/2013 CARNEY DO, NIK K 719.40 PAIN IN JOINT SITE UNSPECIFIED 05/29/2013 CARNEY DO, NIK K 719.45 PAIN IN JOINT INVOLVING PELVIC REGION AND THIGH 05/29/2013 CARNEY DO, NIK K 719.46 PAIN IN JOINT INVOLVING LOWER LEG 05/29/2013 CARNEY DO, NIK K 729.5 PAIN IN LIMB 05/29/2013 CARNEY DO, NIK K 719.40 PAIN IN JOINT SITE UNSPECIFIED 05/29/2013 CARNEY DO, NIK K 719.45 PAIN IN JOINT INVOLVING PELVIC REGION AND THIGH 05/29/2013 CARNEY DO, NIK K 719.46 PAIN IN JOINT INVOLVING LOWER LEG 05/29/2013 CARNEY DO, NIK K 729.5 PAIN IN LIMB 05/29/2013 SARA PAREKH MD N 719.40 PAIN IN JOINT SITE UNSPECIFIED 05/29/2013 SARA PAREKH MD N 719.45 PAIN IN JOINT INVOLVING PELVIC REGION AND THIGH 05/29/2013 SARA PAREKH MD N 719.46 PAIN IN JOINT INVOLVING LOWER LEG 05/29/2013 SARA PAREKH MD N 729.5 PAIN IN LIMB 06/09/2013 CARNEY DO, NIK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 clarity determination CLEAR NRG Urine pH measurement by test strip 6.5 5-9 Specific gravity of urine by test strip 1.015 1.016- 1.022 Urine protein assay by test strip, semi-quantitative NEGATIVE NEGATIVE Urine glucose detection by automated test strip NEGATIVE NEGATIVE Erythrocytes detection in urine sediment by light microscopy 1+ NEGATIVE Urine ketones detection by automated test strip NEGATIVE NEGATIVE Urine nitrite detection by test strip NEGATIVE NEGATIVE Urine total bilirubin detection by test strip NEGATIVE NEGATIVE Urine urobilinogen measurement by automated test strip (mass/volume) 1 mg/dL NORMAL Urine leukocyte esterase detection by dipstick 1+ NEGATIVE Automated urine sediment erythrocyte count by microscopy (number/high power field) NONE NRG Automated urine sediment leukocyte count by microscopy (number/high power field ) [HPF] NRG Bacteria detection in urine sediment by light microscopy TRACE NRG Squamous epithelial cells detection in urine sediment by light microscopy 10-25 NRG Crystals detection in urine sediment by light microscopy NONE NRG Casts detection in urine sediment by light microscopy NONE NRG Mucus detection in urine sediment by light microscopy NEGATIVE NRG Complete urinalysis with reflex to culture NO NRG Amorphous sediment detection in urine sediment by light microscopy RARE SRINI URATES NRG Complete blood count (CBC) with automated white blood cell (WBC) differential - 08/19/16 18:04 Blood leukocytes automated count (number/volume) 11.6 10*3/uL 4.3-11.0 Blood erythrocytes automated count (number/volume) 4.64 10*6/uL 4.35-5.85 Venous blood hemoglobin measurement (mass/volume) 13.9 g/dL 11.5-16.0 Blood hematocrit (volume fraction) 42 % 35-52 Automated erythrocyte mean corpuscular volume 90 [foz_us] 80-99 Automated erythrocyte mean corpuscular hemoglobin (mass per erythrocyte) 30 pg 25-34 Automated erythrocyte mean corpuscular hemoglobin concentration measurement ( mass/volume) 33 g/dL 32-36 Automated erythrocyte distribution width ratio 12.9 % 10.0-14.5 Automated blood platelet count (count/volume) 373 10*3/uL 130-400 Automated blood platelet mean volume measurement 9.4 [foz_us] 7.4-10.4 Automated blood neutrophils/100 leukocytes 69 % 42-75 Automated blood lymphocytes/100 leukocytes 23 % 12-44 Blood monocytes/100 leukocytes 7 % 0-12 Automated blood eosinophils/100 leukocytes 1 % 0-10 Automated blood basophils/100 leukocytes 0 % 0-10 Blood neutrophils automated count (number/volume) 8.0 10*3 1.8-7.8 Blood lymphocytes automated count (number/volume) 2.7 10*3 1.0-4.0 Blood monocytes automated count (number/volume) 0.8 10*3 0.0-1.0 Automated eosinophil count 0.1 10*3/uL 0.0-0.3 Automated blood basophil count (count/volume) 0.0 10*3/uL 0.0-0.1 PT panel in platelet poor plasma by coagulation assay - 08/19/16 18:04 Prothrombin time (PT) in platelet poor plasma by coagulation assay 12.5 s 12.2-14.7 INR in platelet poor plasma or blood by coagulation assay 1.0 0.8-1.4 Activated partial thromboplastin time (aPTT) in platelet poor plasma bycoagulation assay - 08/19/16 18:04 Activated partial thromboplastin time (aPTT) in platelet poor plasma bycoagulation assay 24 s 24-35 Erythrocyte sedimentation rate by westergren method - 08/19/16 18:04 Erythrocyte sedimentation rate by westergren method 6 mm 0-20 Comprehensive metabolic panel - 08/19/16 18:04 Serum or plasma sodium measurement (moles/volume) 142 mmol/L 135-145 Serum or plasma potassium measurement (moles/volume) 3.7 mmol/L 3.6-5.0 Serum or plasma chloride measurement (moles/volume) 109 mmol/L 98-107 Carbon dioxide 22 mmol/L 21-32 Serum or plasma anion gap determination (moles/volume) 11 mmol/L 5-14 Serum or plasma urea nitrogen measurement (mass/volume) 17 mg/dL 7-18 Serum or plasma creatinine measurement (mass/volume) 0.68 mg/dL 0.60-1.30 Serum or plasma urea nitrogen/creatinine mass ratio 25 NRG Serum or plasma creatinine measurement with calculation of estimated glomerular filtration rate > NRG Serum or plasma glucose measurement (mass/volume) 103 mg/dL 70-105 Serum or plasma calcium measurement (mass/volume) 8.8 mg/dL 8.5-10.1 Serum or plasma total bilirubin measurement (mass/volume) 1.1 mg/dL 0.1-1.0 Serum or plasma alkaline phosphatase measurement (enzymatic activity/volume) 49 U/L 40-136 Serum or plasma aspartate aminotransferase measurement (enzymatic activity/ volume) 14 U/L 5-34 Serum or plasma alanine aminotransferase measurement (enzymatic activity/volume ) 12 U/L 0-55 Serum or plasma protein measurement (mass/volume) 6.8 g/dL 6.4-8.2 Serum or plasma albumin measurement (mass/volume) 4.1 g/dL 3.2-4.5 Serum or plasma creatine kinase MB measurement (enzymatic activity/volume) - 18:04 Serum or plasma creatine kinase MB measurement (enzymatic activity/volume) 1.1 ng/mL <6.6 Myoglobin, serum - 08/19/16 18:04 Myoglobin, serum 25.7 ng/mL 10.0-92.0 Encounters ACCT No. Visit Date/Time Discharge Status Pt. Type Provider Facility Loc./Unit Complaint [id number] 07/23/2014 13:38:00 07/23/2014 23:59:59 CLS Outpatient SARA PAREKH MD [id number] 05/24/2014 14:04:00 05/24/2014 23:59:59 CLS Outpatient NIK CARNEY DO [id number] 03/05/2014 11:31:00 03/05/2014 23:59:59 CLS Outpatient CARNEY DONIK [id number] 01/29/2014 16:45:00 01/29/2014 23:59:59 CLS Outpatient CARNEY DONIK [id number] 01/15/2014 16:11:00 01/15/2014 23:59:59 CLS Outpatient CARNEY DO, NIK Avila [id number] 01/01/2014 16:48:00 01/01/2014 23:59:59 CLS Outpatient RACHEL BEEBE APRN [id number] 12/21/2013 15:33:00 12/21/2013 23:59:59 CLS Outpatient RACHEL BEEBE APRN [id number] 12/18/2013 12:27:00 12/18/2013 23:59:59 CLS Outpatient RACHEL BEEBE APRN [id number] 12/15/2013 14:53:00 12/15/2013 23:59:59 CLS Outpatient CARNEY DONIK [id number] 12/11/2013 14:08:00 12/11/2013 23:59:59 CLS Outpatient CARNEY DO, NIK Avila [id number] 12/01/2013 11:29:00 12/01/2013 23:59:59 CLS Outpatient CARNEY DONIK [id number] 11/23/2013 14:15:00 11/23/2013 23:59:59 CLS Outpatient CARNEY DO, NIK Avila [id number] 11/20/2013 16:50:00 11/20/2013 23:59:59 CLS Outpatient CARNEY DONIK [id number] 11/17/2013 10:58:00 11/17/2013 23:59:59 CLS Outpatient CARNEY DO, NIK Avila [id number] 11/16/2013 13:47:00 11/16/2013 23:59:59 CLS Outpatient CARNEY DO, NIK Avila [id number] 10/01/2013 15:13:00 10/01/2013 23:59:59 CLS Outpatient CARNEY DO, NIK Avila [id number] 08/25/2013 16:32:00 08/25/2013 23:59:59 CLS Outpatient CARNEY DO, NIK Avila [id number] 07/21/2013 16:37:00 07/21/2013 23:59:59 CLS Outpatient CARNEY DONIK [id number] 07/06/2013 10:46:00 07/06/2013 23:59:59 CLS Outpatient CARNEY DONIK [id number] 06/09/2013 10:35:00 06/09/2013 23:59:59 CLS Outpatient CARNEY DONIK [id number] 05/29/2013 14:04:00 05/29/2013 23:59:59 CLS Outpatient CARNEY DONIK [id number] 03/20/2013 10:02:00 03/20/2013 23:59:59 CLS Outpatient CARNEY DONIK [id number] 03/13/2013 13:42:00 03/13/2013 23:59:59 CLS Outpatient CARNEY DONIK [id number] 03/06/2013 14:03:00 03/06/2013 23:59:59 CLS Outpatient CARNEY DONIK [id number] 01/07/2013 09:44:00 01/07/2013 23:59:59 CLS Outpatient CARNEY DONIK [id number] 05/22/2012 15:23:00 05/22/2012 23:59:59 CLS Outpatient CARNEY DONIK [id number] 03/31/2012 11:04:00 03/31/2012 23:59:59 CLS Outpatient EFRA LARA APRN [id number] 12/24/2012 08:57:00 Document Registration [id number] 11/24/2012 15:13:00 Document Registration [id number] 10/29/2012 08:20:00 Document Registration [id number] 09/26/2012 09:19:00 Document Registration [id number] 09/24/2012 16:41:00 Document Registration [id number] 09/22/2012 12:48:00 Document Registration [id number] 09/15/2012 16:12:00 Document Registration [id number] 09/05/2012 15:51:00 Document Registration [id number] 08/29/2012 08:51:00 Document Registration [id number] 08/26/2012 09:29:00 Document Registration [id number] 04/22/2017 10:59:00 04/22/2017 23:59:59 CLS Outpatient SARAH MCGOWAN [facility] RAD THORACIC NEURITIS [id number] 04/18/2017 14:22:00 04/18/2017 23:59:59 CLS Preadmit SARAH MCGOWAN [facility] REHAB THORACIC NEURITIS [id number] 08/19/2016 17:17:00 08/19/2016 19:14:00 DIS Emergency BORIS HONG DINA [facility] ER L LEG BRUISING/INJ [id number] 06/18/2016 12:55:00 06/18/2016 23:59:59 CLS Outpatient SARAH MCGOWAN DINA [facility] RAD THORACIC NEURITIS, CERVICAL NEURITIS [id number] 05/09/2016 15:01:00 05/09/2016 16:36:00 DIS Emergency PAUL WITT APRN [facility] ER LIGHTHEADED/DIZZY HEADACHE [id number] 05/07/2016 09:49:00 05/07/2016 13:14:00 DIS Emergency PARIS HILL [facility] ER MIGRANE [id number] 09/04/2014 11:19:00 09/04/2014 12:25:00 DIS Emergency PAUL WITT APRN [facility] ER WEAK DIZZINESS [id number] 08/18/2014 12:47:00 08/18/2014 14:00:00 DIS Emergency TIM MIGUEL MD [facility] ER RIGHT HEEL LAC [id number] 05/19/2014 17:27:00 05/19/2014 23:59:59 CLS Outpatient RACHEL ROWE [facility] QUICK [id number] 05/19/2014 15:59:00 05/19/2014 15:59:00 CAN Preadmit CRYSTAL DIANE DO [facility] ER BACK PAIN [id number] 05/14/2014 11:43:00 05/14/2014 12:32:00 DIS Emergency PAUL WITT APRN [facility] ER UTI SYMPTOMS BACK PAIN [id number] 11/25/2013 17:40:00 11/25/2013 18:33:00 DIS Emergency PAUL WITT APRN [facility] ER BRUISING AROUND INJ SITE [id number] 11/11/2013 18:19:00 11/13/2013 15:37:00 DIS Inpatient SHAN ARCHER MD [facility] SURGICAL DVT [id number] 11/08/2013 19:02:00 11/08/2013 21:45:00 DIS Emergency CRYSTAL DIANE DO [facility] ER LEFT LEG PAIN [id number] 11/02/2013 07:23:00 11/02/2013 12:45:00 DIS Outpatient SHAN ARCHER MD [facility] SDC LEFT KNEE TORN MEDIAL MENISCUS [id number] 10/30/2013 08:06:00 10/30/2013 23:59:59 CLS Outpatient [id number] 09/07/2013 11:14:00 09/07/2013 23:59:59 CLS Outpatient [id number] 07/07/2013 15:49:00 07/15/2013 16:23:00 DIS Outpatient [id number] 06/04/2013 16:15:00 06/04/2013 23:59:59 CLS Outpatient [id number] 11/03/2012 15:11:00 11/27/2012 10:14:00 DIS Outpatient [id number] 10/31/2012 10:16:00 10/31/2012 23:59:59 CLS Outpatient [id number] 10/10/2012 10:19:00 10/10/2012 23:59:59 CLS Outpatient [id number] 10/07/2012 10:07:00 10/07/2012 12:20:00 DIS Emergency [id number] 09/26/2012 10:17:00 09/26/2012 23:59:59 CLS Outpatient [id number] 09/04/2012 10:16:00 09/04/2012 23:59:59 CLS Outpatient [id number] 05/14/2014 12:36:00 Document Registration
== END 2017-05-24 15:13 | disposition left against medical advice (07) ==
LOC: EDUNIT# 14:24 → ER 14:27
DX: R06.00 Dyspnea, unspecified (principal)

== ENCOUNTER 2018-10-15 14:11 | Emergency (ER) | payer SELFPAY ==
[~2018-10-15] VITALS: Ht 162.6 cm; Wt 95.7 kg
[~2018-10-15 14:11] MED LIST changes: +NAPR-915; -NAPR500T4
--- NOTE | 2018-10-15 15:14 | ED General ---
General Chief Complaint: Dizziness/Syncope Stated Complaint: HEADACHE,WEAK,NAUSEA Nursing Triage Note: Pt c/o dizziness, headache, and weakness for the past couple of days. Pt reports being seen in the clinic yesterday and has fluid on the ears. Pt was given steroid shot. Pt reports taking Imitrex this morning for headache. Nursing Sepsis Screen: No Definite Risk Source of Information: Patient Exam Limitations: No Limitations History of Present Illness Date Seen by Provider: Oct 15, 2018 Time Seen by Provider: 15:11 Initial Comments To ER with reports of dizziness headache weakness and nausea for several days. Symptoms all constant for About 3-4 days to be exact. No fevers or chills. No cough. Was seen at the clinic yesterday for this and was told she had "fluid behind the ears". Timing/Duration: 3-4 Days Severity: Moderate Associated Systoms: No Chest Pain, No Cough, No Diaphoresis, No Fever/Chills; Headaches, Malaise, Nausea/Vomiting; No Seizure, No Shortness of Air, No S yncope; Weakness Allergies and Home Medications Allergies Coded Allergies: No Known Drug Allergies (Verified , 08/19/16) Home Medications Meclizine HCl 25 Mg Tablet, 25 MG PO TID PRN for DIZZINESS Prescribed by: PAUL WITT on 10/15/18 1630 Metoprolol Succinate 50 Mg Tab.er.24h, 50 MG PO DAILY, (Reported) Patient Home Medication List Home Medication List Reviewed: Yes Review of Systems Review of Systems Constitutional: see HPI; No chills, No fever; malaise, weakness EENTM: other (dizziness) Respiratory: no symptoms reported Cardiovascular: no symptoms reported; No chest pain Genitourinary: no symptoms reported Musculoskeletal: no symptoms reported Skin: no symptoms reported Psychiatric/Neurological: See HPI, Headache Hematologic/Lymphatic: No Symptoms Reported Immunological/Allergic: no symptoms reported Past Noitnsz-Lzegkn-Vlmixq Hx Patient Social History Alcohol Use: Denies Use Recreational Drug Use: No Smoking Status: Current Everyday Smoker Type Used: Cigarettes 2nd Hand Smoke Exposure: Yes Recent Foreign Travel: No Contact w/Someone Who Travel: No Recent Infectious Disease Expo: No Recent Hopitalizations: No Immunizations Up To Date Tetanus Booster (TDap): Less than 5yrs Past Medical History Surgeries: Yes (LIVER BIOPSY, BRONCHOSCOPY, L KNEE SCOPE) Orthopedic Respiratory: No Cardiac: Yes (FREQUENT PVCS) Deep Vein Thrombosis, Hypertension Neurological: Yes Headaches /Migraines Reproductive Disorders: No Gastrointestinal: Yes (LIVER BIOPSY 3-4 YEARS AGO; HEP C-treated) Hepatitis Musculoskeletal: Yes (SACROLITIS) Rheumatoid Arthritis Endocrine: Yes (NOT TREATED- wln ) Hyperthyroidism Cancer: No Psychosocial: Yes Depression Blood Disorders: Yes (HEP C- treated) Family Medical History Cancer 19 FATHER G8 SISTER Family history: Diabetes mellitus 19 FATHER G8 SISTER Family history: Hypertension 19 FATHER No Pertinent Family Hx Physical Exam Vital Signs Vital Signs - First Documented 10/15/18 14:48 Temp 98.1 Pulse 68 Resp 14 B/P (MAP) 172/100 (124) Pulse Ox 96 O2 Delivery Room Air Capillary Refill : Less Than 3 Seconds Height, Weight, BMI Height: 5'4.00" Weight: 211lbs. 9.6oz. 95.387753gu; 33.47 BMI Method:Stated General Appearance: No Apparent Distress, WD/WN Eyes: Bilateral Eye Normal Inspection, Bilateral Eye PERRL, Bilateral Eye EOMI HEENT: PERRL/EOMI, TMs Normal, Other (there is no nystagmus) Neck: Full Range of Motion, Normal Inspection, Non Tender Respiratory: Chest Non Tender, Lungs Clear, Normal Breath Sounds, No Accessory Muscle Use, No Respiratory Distress Cardiovascular: Regular Rate, Rhythm, Normal Peripheral Pulses Gastrointestinal: Normal Bowel Sounds, Non Tender, Soft Extremity: Normal Capillary Refill, Normal Inspection Neurologic/Psychiatric: Alert, Oriented x3 Skin: Normal Color, Warm/Dry Progress/Results/Core Measures Suspected Sepsis Recent Fever Within 48 Hours: No Infection Criteria Present: None New/Unexplained Altered Menta: No Sepsis Screen: No Definite Risk SIRS Temperature:98.1 Pulse: 68 Respiratory Rate: 14 Laboratory Tests 10/15/18 15:38: White Blood Count 16.6H Blood Pressure 172 /100 Mean: 124 Laboratory Tests 10/15/18 15:38: Creatinine 0.79, Platelet Count 377, Total Bilirubin 0.7 Results/Orders Lab Results Laboratory Tests Test 10/15/18 15:35 10/15/18 15:38 Range/Units Urine Color YELLOW Urine Clarity CLEAR Urine pH 5 5-9 Urine Specific [place] 1.030 H 1.016-1.022 Urine Protein 1+ H NEGATIVE Urine Glucose (UA) NEGATIVE NEGATIVE Urine Ketones NEGATIVE NEGATIVE Urine Nitrite NEGATIVE NEGATIVE Urine Bilirubin NEGATIVE NEGATIVE Urine Urobilinogen NORMAL NORMAL MG/DL Urine Leukocyte Esterase 1+ H NEGATIVE Urine RBC (Auto) 2+ H NEGATIVE Urine RBC 0-2 /HPF Urine WBC RARE /HPF Urine Squamous Epithelial Cells 2-5 /HPF Urine Crystals NONE /LPF Urine Bacteria NEGATIVE /HPF Urine Casts NONE /LPF Urine Mucus NEGATIVE /LPF Urine Culture Indicated NO White Blood Count 16.6 H 4.3-11.0 10^3/uL Red Blood Count 5.28 4.35-5.85 10^6/uL Hemoglobin 15.6 11.5-16.0 G/DL Hematocrit 46 35-52 % Mean Corpuscular Volume 87 80-99 FL Mean Corpuscular Hemoglobin 30 25-34 PG Mean Corpuscular Hemoglobin Concent 34 32-36 G/DL Red Cell Distribution Width 13.1 10.0-14.5 % Platelet Count 377 130-400 10^3/uL Mean Platelet Volume 9.2 7.4-10.4 FL Neutrophils (%) (Auto) 69 42-75 % Lymphocytes (%) (Auto) 22 12-44 % Monocytes (%) (Auto) 8 0-12 % Eosinophils (%) (Auto) 1 0-10 % Basophils (%) (Auto) 0 0-10 % Neutrophils # (Auto) 11.5 H 1.8-7.8 X 10^3 Lymphocytes # (Auto) 3.7 1.0-4.0 X 10^3 Monocytes # (Auto) 1.3 H 0.0-1.0 X 10^3 Eosinophils # (Auto) 0.1 0.0-0.3 10^3/uL Basophils # (Auto) 0.0 0.0-0.1 10^3/uL Neutrophils % (Manual) 77 % Lymphocytes % (Manual) 16 % Monocytes % (Manual) 6 % Eosinophils % (Manual) 1 % Band Neutrophils 0 % Blood Morphology Comment NORMAL Sodium Level 143 135-145 MMOL/L Potassium Level 3.8 3.6-5.0 MMOL/L Chloride Level 109 H 98-107 MMOL/L Carbon Dioxide Level 21 21-32 MMOL/L Anion Gap 13 5-14 MMOL/L Blood Urea Nitrogen 14 7-18 MG/DL Creatinine 0.79 0.60-1.30 MG/DL Estimat Glomerular Filtration Rate > 60 BUN/Creatinine Ratio 18 Glucose Level 87 70-105 MG/DL Calcium Level 9.2 8.5-10.1 MG/DL Corrected Calcium 8.9 8.5-10.1 MG/DL Total Bilirubin 0.7 0.1-1.0 MG/DL Aspartate Amino Transf (AST/SGOT) 13 5-34 U/L Alanine Aminotransferase (ALT/SGPT) 16 0-55 U/L Alkaline Phosphatase 57 40-136 U/L Total Protein 7.7 6.4-8.2 GM/DL Albumin 4.4 3.2-4.5 GM/DL Serum Test, Qualitative NEGATIVE NEGATIVE My Orders Orders - PAUL WITT APRN Cbc With Automated Diff (10/15/18 15:07) Comprehensive Metabolic Panel (10/15/18 15:07) Ua Culture If Indicated (10/15/18 15:07) Ct Head Wo (10/15/18 15:07) Ed Iv/Invasive Line Start (10/15/18 15:07) Hcg,Qualitative Serum (10/15/18 15:07) Ketorolac Injection (Toradol Injection) (10/15/18 15:15) Prochlorperazine Injection (Compazine In (10/15/18 15:15) Diphenhydramine Injection (Benadryl Inje (10/15/18 15:15) Lactated Ringers (Lr 1000 Ml Iv Solution (10/15/18 15:15) Manual Differential (10/15/18 15:38) Medications Given in ED Current Medications Medications Dose Ordered Sig/Jim Route Start Time Stop Time Status Last Admin Dose Admin Diphenhydramine HCl 25 mg ONCE ONCE IVP 10/15/18 15:15 10/15/18 15:16 DC 10/15/18 16:05 25 MG Ketorolac Tromethamine 30 mg ONCE ONCE IVP 10/15/18 15:15 10/15/18 15:16 DC 10/15/18 16:08 30 MG Prochlorperazine Edisylate 5 mg ONCE ONCE IV 10/15/18 15:15 10/15/18 15:16 DC 10/15/18 16:11 5 MG Vital Signs/I&O 10/15/18 14:48 Temp 98.1 Pulse 68 Resp 14 B/P (MAP) 172/100 (124) Pulse Ox 96 O2 Delivery Room Air Capillary Refill : Less Than 3 Seconds Blood Pressure Mean: 124 Departure Impression Primary Impression: Dizziness Additional Impression: Malaise Disposition: 01 HOME, SELF-CARE Condition: Stable Departure-Patient Inst. Decision time for Depature: 16:30 Referrals: SARAH MCGOWAN (PCP/Family) Primary Care Physician Patient Instructions: Vertigo (a Type of Dizziness) Add. Discharge Instructions: 1. Medication as directed 2. Return to ER for any concerns 3. Follow-up with your doctor next week All discharge instructions reviewed with patient and/or family. Voiced understanding. Scripts Meclizine HCl (Meclizine HCl) 25 Mg Tablet 25 MG PO TID PRN for DIZZINESS, #10 TAB Prov: PAUL WITT APRN 10/15/18 Work/School Note: Work Release Form Date Seen in the Emergency Department: Oct 15, 2018 Return to Work: Oct 17, 2018 PAUL WITT APRN Oct 15, 2018 15:14
[2018-10-15] MEDS ORDERED: LACTATED RINGERS 1,000 ML IV SCH (15:15)
[2018-10-15] MEDS ORDERED: diphenhydrAMINE 50 MG/ML INJ (BENADRYL) IVP ONE (15:15)
[2018-10-15] MEDS ORDERED: KETOROLAC 30 MG/ML VIAL IVP ONE (15:15)
[2018-10-15] MEDS ORDERED: PROCHLORPERAZINE 10 MG/2ML INJ (COMPAZINE) IV ONE (15:15)
[2018-10-15 15:47] LABS: BILIRUBIN,URINE NEGATIVE (NEGATIVE); CLARITY,URINE CLEAR; COLOR,URINE YELLOW; GLUCOSE, URINE (UA) NEGATIVE (NEGATIVE); KETONES,URINE NEGATIVE (NEGATIVE); LEUKOCYTE ESTERASE ,URINE 1+ (NEGATIVE); NITRITE,URINE NEGATIVE (NEGATIVE); PH,URINE 5 (5-9); PROTEIN,URINE 1+ (NEGATIVE); UROBILINOGEN,URINE NORMAL (NORMAL)
[2018-10-15 15:48] LABS: BASOPHILS % (AUTO) 0 % (0-10); EOSINOPHILS # (AUTO) 0.1 10^3/uL (0.0-0.3); EOSINOPHILS % (AUTO) 1 % (0-10); HEMATOCRIT 46 % (35-52); HEMOGLOBIN 15.6 G/DL (11.5-16.0); LYMPHOCYTES # (AUTO) 3.7 X 10^3 (1.0-4.0); LYMPHOCYTES % (AUTO) 22 % (12-44); MEAN CORPUSCULAR HEMOGLOBIN 30 PG (25-34); MEAN CORPUSCULAR HGB CONC 34 G/DL (32-36); MEAN CORPUSCULAR VOLUME 87 FL (80-99); MEAN PLATELET VOLUME 9.2 FL (7.4-10.4); MONOCYTES # (AUTO) 1.3 X 10^3 (0.0-1.0); MONOCYTES % (AUTO) 8 % (0-12); NEUTROPHILS # (AUTO) 11.5 X 10^3 (1.8-7.8); NEUTROPHILS % (AUTO) 69 % (42-75); PLATELET COUNT 377 10^3/uL (130-400); RED CELL DISTRIBUTION WIDTH 13.1 % (10.0-14.5); WHITE BLOOD COUNT 16.6 10^3/uL (4.3-11.0)
[2018-10-15 16:02] LABS: BACTERIA,URINE NEGATIVE /HPF; RBC,URINE 0-2 /HPF; WBC,URINE RARE /HPF
[2018-10-15 16:05] LABS: ALANINE AMINOTRANSFERASE 16 U/L (0-55); ALBUMIN 4.4 GM/DL (3.2-4.5); ALKALINE PHOSPHATASE 57 U/L (40-136); BILIRUBIN,TOTAL 0.7 MG/DL (0.1-1.0); BUN/CREATININE RATIO 18; CALCIUM 9.2 MG/DL (8.5-10.1); CARBON DIOXIDE 21 MMOL/L (21-32); CHLORIDE 109 MMOL/L (98-107); CREATININE SERUM 0.79 MG/DL (0.60-1.30); GFR ESTIMATED > 60; GLUCOSE 87 MG/DL (70-105); POTASSIUM 3.8 MMOL/L (3.6-5.0); SODIUM 143 MMOL/L (135-145); TOTAL PROTEIN 7.7 GM/DL (6.4-8.2)
--- NOTE | 2018-10-15 16:07 | Diagnostic Imaging Report ---
Clinical indication: Patient with headache, dizziness, blurred vision and light sensitive. History of migraines. Exam: Axial CT scan of the brain performed without IV contrast. Comparison: Head CT without contrast dated 05/09/2016. Findings: There is no evidence of acute cerebral infarct, intracranial hemorrhage, or gross mass effect. The brain parenchymal volume appears appropriate for patient's age. There is normal zendejas-white matter distinction. There is no significant midline shift or herniation. There is no evidence of hydrocephalus. The basal cisterns are unremarkable. The skull, extracranial soft tissue, and orbits are unremarkable. The paranasal sinuses are unremarkable. Temporal bones show no significant abnormality. Impression: Unremarkable CT scan of the brain. Dictated by: Dictated on workstation # [id number]
[2018-10-15 16:21] LABS: NEUTROPHILS % (MANUAL) 77 %
[2018-10-15 16:22] LABS: BAND NEUTROPHILS 0 %; EOSINOPHILS % (MANUAL) 1 %; LYMPHOCYTES % (MANUAL) 16 %; MONOCYTES % (MANUAL) 6 %; RBC MORPH NORMAL
[2018-10-15] MEDS ORDERED: MECL-106 PO (16:30)
[2018-10-15 17:15] VITALS: BP 149/83
--- NOTE | 2018-10-15 17:15 | NUR ---
Pt's arm bent and only 500 ml of fluids in. Pt wants to leave at this time.
== END 2018-10-15 17:15 | disposition home or self-care (01) ==
LOC: EDUNIT# 14:11 → ER 14:12
DX: R42 Dizziness and giddiness (principal); R53.81 Other malaise; I10 Essential (primary) hypertension; G43.909 Migraine, unspecified, not intractable, without status migrainosus; B19.20 Unspecified viral hepatitis C without hepatic coma; M06.9 Rheumatoid arthritis, unspecified; E05.90 Thyrotoxicosis, unspecified without thyrotoxic crisis or storm; F32.9 Major depressive disorder, single episode, unspecified; F17.210 Nicotine dependence, cigarettes, uncomplicated; Z98.890 Other specified postprocedural states; Z82.49 Family history of ischemic heart disease and other diseases of the circulatory system; Z86.718 Personal history of other venous thrombosis and embolism; Z86.79 Personal history of other diseases of the circulatory system
CPT/HCPCS: 36415; 70450; 80053; 81000; 84703; 85007; 85027; 96361; 96374; 96375

== ENCOUNTER 2018-11-04 14:57 | Emergency (ER) | payer SELFPAY ==
[~2018-11-04] VITALS: Ht 162.6 cm; Wt 96.0 kg
[~2018-11-04 14:57] MED LIST changes: +MECL-106 PO
--- NOTE | 2018-11-04 15:16 | NUR ---
TO ROOM NO NEW C/O
--- NOTE | 2018-11-04 15:29 | ED Cough/URI ---
General Chief Complaint: Cough/Cold/Flu Symptoms Stated Complaint: CHEST CONGESTION Nursing Triage Note: NATHEN STATES THAT SHE HAS BEEN SICK X2 WEEKS WITH COUGH/CONGESTION. ALSO C/O WEAKNESS, FATIGUE, BODY ACHES. Sepsis Screen: No Definite Risk Source: patient Exam Limitations: no limitations History of Present Illness Date Seen by Provider: Nov 04, 2018 Time Seen by Provider: 15:28 Initial Comments To ER per private vehicle with reports of productive cough for about 2 weeks. She also reports generalized weakness and fatigue. She has a history of DVT after left knee surgery couple of years ago, she denies fevers. She does smoke cigarettes. She reports shortness breath and wheezing. Timing/Duration: just prior to arrival Severity/Quality: moderate Associated Symptoms: cough, shortness of breath, wheezing Allergies and Home Medications Allergies Coded Allergies: No Known Drug Allergies (Verified , 08/19/16) Home Medications Meclizine HCl 25 Mg Tablet, 25 MG PO TID PRN for DIZZINESS Prescribed by: PAUL WITT on 10/15/18 1630 Metoprolol Succinate 50 Mg Tab.er.24h, 50 MG PO DAILY, (Reported) Prednisone 20 Mg Tab, 40 MG PO DAILY Prescribed by: PAUL WITT on 11/04/18 1632 Patient Home Medication List Home Medication List Reviewed: Yes Review of Systems Review of Systems Constitutional: see HPI EENTM: see HPI Respiratory: see HPI, cough, short of breath, wheezing Cardiovascular: no symptoms reported Genitourinary: no symptoms reported Musculoskeletal: no symptoms reported Skin: no symptoms reported Psychiatric/Neurological: No Symptoms Reported Past Dhdphkx-Smmvny-Carvyl Hx Patient Social History Alcohol Use: Denies Use Recreational Drug Use: No Smoking Status: Current Everyday Smoker Type Used: Cigarettes 2nd Hand Smoke Exposure: Yes Recent Foreign Travel: No Contact w/Someone Who Travel: No Recent Infectious Disease Expo: No Recent Hopitalizations: No Immunizations Up To Date Tetanus Booster (TDap): Less than 5yrs Past Medical History Surgeries: Yes (LIVER BIOPSY, BRONCHOSCOPY, L KNEE SCOPE) Orthopedic Respiratory: No Cardiac: Yes (FREQUENT PVCS) Deep Vein Thrombosis, Hypertension Neurological: Yes Headaches /Migraines Reproductive Disorders: No Gastrointestinal: Yes (LIVER BIOPSY 3-4 YEARS AGO; HEP C-treated) Hepatitis Musculoskeletal: Yes (SACROLITIS) Rheumatoid Arthritis Endocrine: Yes (NOT TREATED- wln ) Hyperthyroidism Cancer: No Psychosocial: Yes Depression Blood Disorders: Yes (HEP C- treated) Family Medical History Cancer 19 FATHER G8 SISTER Family history: Diabetes mellitus 19 FATHER G8 SISTER Family history: Hypertension 19 FATHER No Pertinent Family Hx Physical Exam Vital Signs - First Documented 11/04/18 11/04/18 15:07 15:33 Temp 98.4 Pulse 86 Resp 20 B/P (MAP) 136/89 (105) Pulse Ox 98 O2 Delivery Room Air Capillary Refill : Less Than 3 Seconds Height: 5'4.00" Weight: 211lbs. 9.6oz. 95.659096ty; 33.47 BMI Method:Actual General Appearance: WD/WN, no apparent distress Eyes: Bilateral Eye Normal Inspection, Bilateral Eye PERRL, Bilateral Eye EOMI HEENT: PERRL/EOMI, normal ENT inspection Neck: non-tender, full range of motion Respiratory: no respiratory distress, no accessory muscle use, decreased breath sounds; No wheezing Cardiovascular: regular rate, rhythm, no murmur Gastrointestinal: normal bowel sounds, non tender, soft Neurologic/Psychiatric: alert, normal mood/affect, oriented x 3 Skin: normal color, warm/dry Progress/Results/Core Measures Suspected Sepsis Recent Fever Within 48 Hours: No Infection Criteria Present: Suspected New Infection New/Unexplained Altered Menta: No Sepsis Screen: No Definite Risk SIRS Temperature:98.4 Pulse: 86 Respiratory Rate: 20 Laboratory Tests 11/04/18 15:50: White Blood Count 12.6H Blood Pressure 136 /89 Mean: 105 Laboratory Tests 11/04/18 15:50: Creatinine 0.78, Platelet Count 330, Total Bilirubin 0.4 Results/Orders Lab Results Laboratory Tests Test 11/04/18 15:50 Range/Units White Blood Count 12.6 H 4.3-11.0 10^3/uL Red Blood Count 4.91 4.35-5.85 10^6/uL Hemoglobin 14.7 11.5-16.0 G/DL Hematocrit 44 35-52 % Mean Corpuscular Volume 89 80-99 FL Mean Corpuscular Hemoglobin 30 25-34 PG Mean Corpuscular Hemoglobin Concent 34 32-36 G/DL Red Cell Distribution Width 13.3 10.0-14.5 % Platelet Count 330 130-400 10^3/uL Mean Platelet Volume 9.3 7.4-10.4 FL Neutrophils (%) (Auto) 70 42-75 % Lymphocytes (%) (Auto) 22 12-44 % Monocytes (%) (Auto) 7 0-12 % Eosinophils (%) (Auto) 1 0-10 % Basophils (%) (Auto) 0 0-10 % Neutrophils # (Auto) 8.8 H 1.8-7.8 X 10^3 Lymphocytes # (Auto) 2.7 1.0-4.0 X 10^3 Monocytes # (Auto) 0.9 0.0-1.0 X 10^3 Eosinophils # (Auto) 0.1 0.0-0.3 10^3/uL Basophils # (Auto) 0.0 0.0-0.1 10^3/uL D-Dimer 0.39 0.00-0.49 UG/ML Sodium Level 142 135-145 MMOL/L Potassium Level 3.8 3.6-5.0 MMOL/L Chloride Level 108 H 98-107 MMOL/L Carbon Dioxide Level 26 21-32 MMOL/L Anion Gap 8 5-14 MMOL/L Blood Urea Nitrogen 12 7-18 MG/DL Creatinine 0.78 0.60-1.30 MG/DL Estimat Glomerular Filtration Rate > 60 BUN/Creatinine Ratio 15 Glucose Level 92 70-105 MG/DL Calcium Level 9.4 8.5-10.1 MG/DL Corrected Calcium 9.2 8.5-10.1 MG/DL Total Bilirubin 0.4 0.1-1.0 MG/DL Aspartate Amino Transf (AST/SGOT) 10 5-34 U/L Alanine Aminotransferase (ALT/SGPT) 15 0-55 U/L Alkaline Phosphatase 53 40-136 U/L Total Protein 7.3 6.4-8.2 GM/DL Albumin 4.2 3.2-4.5 GM/DL Serum Test, Qualitative NEGATIVE NEGATIVE My Orders Orders - PAUL WITT [employer] Chest Pa/Lat (2 View) (11/04/18 15:22) Sputum Culture (11/04/18 15:22) Fibrin Degradation Products (11/04/18 15:23) Cbc With Automated Diff (11/04/18 15:23) Hcg,Qualitative Serum (11/04/18 15:23) Comprehensive Metabolic Panel (11/04/18 15:23) Albuterol/Ipra Inhalation Soln (Duoneb I (11/04/18 15:30) Svn Small Volume Nebulizer (11/04/18 15:27) Medications Given in ED Current Medications Medications Dose Ordered Sig/Jim Route Start Time Stop Time Status Last Admin Dose Admin Albuterol/ Ipratropium 3 ml ONCE ONCE INH 11/04/18 15:30 11/04/18 15:31 DC 11/04/18 15:34 3 ML Vital Signs/I&O 11/04/18 11/04/18 15:07 15:33 Temp 98.4 Pulse 86 Resp 20 B/P (MAP) 136/89 (105) Pulse Ox 98 O2 Delivery Room Air Capillary Refill : Less Than 3 Seconds Blood Pressure Mean: 105 Departure Impression Primary Impression: Bronchitis Disposition: 01 HOME, SELF-CARE Condition: Stable Departure-Patient Inst. Decision time for Depature: 16:31 Referrals: [facility]/ (PCP) Primary Care Physician SARAH MCGOWAN (Family) Primary Care Physician Patient Instructions: Acute Bronchitis, Adult (DC) Add. Discharge Instructions: 1. The symptoms are not improving on Augmentin this is likely viral. Steroids as directed. All discharge instructions reviewed with patient and/or family. Voiced understanding. Scripts Prednisone (Prednisone) 20 Mg Tab 40 MG PO DAILY, #8 TAB 0 Refills . Prov: PAUL WITT APRN 11/04/18 PAUL WITT APRN Nov 04, 2018 15:29
[2018-11-04] MEDS ORDERED: RT-ALBUTEROL/IPRATROPIUM 3 ML (DUONEB) VIAL INH ONE (15:30)
[2018-11-04 15:56] LABS: BASOPHILS % (AUTO) 0 % (0-10); EOSINOPHILS # (AUTO) 0.1 10^3/uL (0.0-0.3); EOSINOPHILS % (AUTO) 1 % (0-10); HEMATOCRIT 44 % (35-52); HEMOGLOBIN 14.7 G/DL (11.5-16.0); LYMPHOCYTES # (AUTO) 2.7 X 10^3 (1.0-4.0); LYMPHOCYTES % (AUTO) 22 % (12-44); MEAN CORPUSCULAR HEMOGLOBIN 30 PG (25-34); MEAN CORPUSCULAR HGB CONC 34 G/DL (32-36); MEAN CORPUSCULAR VOLUME 89 FL (80-99); MEAN PLATELET VOLUME 9.3 FL (7.4-10.4); MONOCYTES # (AUTO) 0.9 X 10^3 (0.0-1.0); MONOCYTES % (AUTO) 7 % (0-12); NEUTROPHILS # (AUTO) 8.8 X 10^3 (1.8-7.8); NEUTROPHILS % (AUTO) 70 % (42-75); PLATELET COUNT 330 10^3/uL (130-400); RED CELL DISTRIBUTION WIDTH 13.3 % (10.0-14.5); WHITE BLOOD COUNT 12.6 10^3/uL (4.3-11.0)
--- NOTE | 2018-11-04 16:04 | Diagnostic Imaging Report ---
INDICATION: Productive cough. EXAMINATION: PA and lateral chest obtained at 03:55 p.m. FINDINGS: Heart and mediastinal silhouette are normal in appearance. The lungs are clear. There is no pneumothorax or pleural fluid. IMPRESSION: Negative chest. Dictated by: Dictated on workstation # [id number]
[2018-11-04 16:15] LABS: ALANINE AMINOTRANSFERASE 15 U/L (0-55); ALBUMIN 4.2 GM/DL (3.2-4.5); ALKALINE PHOSPHATASE 53 U/L (40-136); BILIRUBIN,TOTAL 0.4 MG/DL (0.1-1.0); BUN/CREATININE RATIO 15; CALCIUM 9.4 MG/DL (8.5-10.1); CARBON DIOXIDE 26 MMOL/L (21-32); CHLORIDE 108 MMOL/L (98-107); CREATININE SERUM 0.78 MG/DL (0.60-1.30); GFR ESTIMATED > 60; GLUCOSE 92 MG/DL (70-105); POTASSIUM 3.8 MMOL/L (3.6-5.0); SODIUM 142 MMOL/L (135-145); TOTAL PROTEIN 7.3 GM/DL (6.4-8.2)
[2018-11-04] MEDS ORDERED: PRD20T PO ×2 (16:32→16:42)
[2018-11-04 16:43] VITALS: BP 136/89
== END 2018-11-04 16:42 | disposition home or self-care (01) ==
LOC: EDUNIT# 14:57 → ER 14:58
DX: J40 Bronchitis, not specified as acute or chronic (principal); I10 Essential (primary) hypertension; G43.909 Migraine, unspecified, not intractable, without status migrainosus; B19.20 Unspecified viral hepatitis C without hepatic coma; M06.9 Rheumatoid arthritis, unspecified; E05.90 Thyrotoxicosis, unspecified without thyrotoxic crisis or storm; F32.9 Major depressive disorder, single episode, unspecified; F17.210 Nicotine dependence, cigarettes, uncomplicated; Z86.718 Personal history of other venous thrombosis and embolism; Z82.49 Family history of ischemic heart disease and other diseases of the circulatory system
CPT/HCPCS: 36415; 71046; 80053; 84703; 85025; 85379; 94640

== ENCOUNTER → 2023-02-14 | Outpatient (CLI) | payer OTHER ==
[~2023-02-14] MED LIST changes: -DOXY100C2; +DOXY100C5; -MECL-106 PO; +MECL-291 PO; -METO-370 PO; +METO50TA7 PO; +PRD20T PO
--- NOTE | 2023-02-14 09:35 | Diagnostic Imaging Report ---
INDICATION: Back stiffness. Numbness and paresthesias of the extremities. COMPARISON: None TECHNIQUE: Routine non-contrast enhanced multiplanar, multisequence MRI of the thoracic spine was obtained. FINDINGS: There is normal anatomic alignment of the thoracic spine. The visualized vertebral bodies demonstrate normal height and marrow signal. The disk heights are well maintained. The visualized spinal cord has a normal appearance. No large pre or paravertebral masses are seen. The axial images demonstrate no disk bulge, herniation, central canal nor foraminal stenosis. IMPRESSION: Negative MRI of the thoracic spine. Dictated by: Dictated on workstation # [id number]
--- NOTE | 2023-02-14 11:11 | Diagnostic Imaging Report ---
PROCEDURE: MRI lumbar spine. TECHNIQUE: Multiplanar, multisequence MRI of the lumbar spine was performed without contrast. INDICATION: Stiffness of the back. Numbness and paresthesias of the extremities. Dysuria. COMPARISON: None FINDINGS: For the purposes of this exam, last well-formed disc space is noted the L5-S1 level. Static alignment of the lumbar spine is maintained. There is no significant anterolisthesis or retrolisthesis. There is no evidence of jumped facets. Vertebral body heights are maintained. There is no acute fracture. Marrow signal is normal throughout. Intervertebral disc heights are also fairly well maintained, although there is loss of normal fluid type bright signal at the L2-L3 through L4-L5 levels. Visualized portions of distal cord are unremarkable. Conus terminates approximately the T12-L1 level. No abnormal intrathecal filling defects are seen. Pre and paravertebral soft tissue structures are unremarkable. Axial images demonstrate the following: T12-L1 and L1-L2: There is no large disc bulge or focal protrusion. There is no significant spinal canal or neural foraminal stenosis. L2-L3: There is slight broad-based posterior disc bulge, but no significant spinal canal or neural foraminal stenosis. L3-L4: There is mild broad-based posterior disc bulge with bilateral ligamentum flavum laxity. As a result, there is mild narrowing of the spinal canal and minimal narrowing of bilateral neural foramen. L4-L5: There is broad-based posterior disc bulge with bilateral ligamentum flavum laxity and mild facet arthropathy. As a result, there is mild narrowing of spinal canal and bilateral neural foramen. L5-S1: There is no large disc bulge or focal protrusion. There is bilateral facet arthropathy, but no significant spinal canal or neural foraminal stenosis. IMPRESSION: 1. Mild multilevel degenerative changes lumbar spine, but no significant spinal canal or neural foraminal stenosis. 2. No acute fracture or dislocation. Dictated by: Dictated on workstation # [id number]
--- NOTE | 2023-02-14 11:11 | Diagnostic Imaging Report ---
PROCEDURE: MR imaging cervical spine without contrast. TECHNIQUE: Multiplanar, multisequence MR imaging of the cervical spine was performed without contrast. INDICATION: Stiffness of the spine. Paresthesias of the extremities. Dysuria. COMPARISON: 06/18/2016 FINDINGS: Evaluation static alignment shows straightening with slight reversal of normal lordotic curvature. There is no significant anteroretrolisthesis. There is no evidence of jumped facets. Vertebral heights are maintained. There is no acute fracture. Evaluation marrow signal demonstrates Modic type I change at the C6-C7 level. There is also multilevel intervertebral disc height loss with multilevel anterior posterior endplate osteophyte formations. This results in multilevel spinal canal or neuroforaminal narrowing. Cervical cord is normal in course and signal. There is no evidence of cord edema. No abnormal intrathecal filling defects are seen. Included portions of posterior fossa are unremarkable. Pre and paravertebral soft tissue structures are within normal limits. Axial images demonstrate the following: C2-C3 and C3-C4. There is no large disc bulge or focal contusion. There is no significant spinal canal or neuroforaminal stenosis. C4-C5: There is minimal bilateral uncal vertebral hypertrophy. There is no large disc bulge. There is no significant spinal canal or neuroforaminal stenosis. C5-C6: There is bilateral uncal vertebral hypertrophy with broad-based posterior disc osteophyte complex formation. As a result, there is moderate stenosis of the left neuroforamen and mild stenosis on the right. There is also moderate to severe stenosis of the spinal canal. C6-C7: There is bilateral uncal vertebral hypertrophy with broad-based posterior disc bulge. As a result, there is moderate narrowing of the spinal canal and minimal narrowing of bilateral neural foramen. C6-C7: There is small central posterior disc protrusion, but no significant spinal canal or neuroforaminal stenosis. C7-T1: There is no large disc bulge or focal effusion. There is no significant spinal canal or neuroforaminal stenosis. IMPRESSION: 1. Multilevel degenerative changes of the cervical spine greatest at C5-C6 and C6-C7 levels. These changes have progressed when compared to 06/18/2016. 2. No acute fracture or dislocation. Dictated by: Dictated on workstation # [id number]
== END ==
LOC: RAD 07:39
PROVIDERS: ATTEND Student in an Organized Health Care Education/Training Program
DX: M50.322 Other cervical disc degeneration at C5-C6 level (principal); M50.323 Other cervical disc degeneration at C6-C7 level; M47.816 Spondylosis without myelopathy or radiculopathy, lumbar region; M47.817 Spondylosis without myelopathy or radiculopathy, lumbosacral region; M51.36 Other intervertebral disc degeneration, lumbar region; M51.37 Other intervertebral disc degeneration, lumbosacral region; R20.0 Anesthesia of skin; R30.0 Dysuria
CPT/HCPCS: 72141; 72146; 72148

== ENCOUNTER 2023-03-09 17:45 | Emergency (ER) | payer OTHER ==
[~2023-03-09] VITALS: Ht 162 cm; Wt 74.0 kg
--- NOTE | 2023-03-09 18:03 | ED Cough/URI ---
General Chief Complaint: Cough/Cold/Flu Symptoms Stated Complaint: SOA/CONGESTION Source: patient History of Present Illness Date Seen by Provider: Mar 09, 2023 Time Seen by Provider: 17:54 Initial Comments PT ARRIVES VIA POV FROM HOME PT HAS BEEN SICK FOR THE LAST 2 WEEKS WITH: -PRODUCTIVE COUGH WITH GREEN SPUTUM -SHORTNESS OF BREATH -LOW GRADE FEVER 98.9--STATES HER NORMAL TEMP IS 97 -MUCH FATIGUE NO PAIN WITH BREATHING NO GI SYMPTOMS NO HEADACHE NO SINUS PAIN OR DRAINAGE SHE WENT TO [facility] ON Saturday03/04/23 FOR THIS PROBLEM. NO TESTS WERE DONE WAS PRESCRIBED PREDNISONE 20 MG DAILY X 5 DAYS, FINISHED 2 DAYS AGO NO IMPROVEMENT IN SYMPTOMS WITH PREDNISONE SHE LATER STATES SHE WAS ALSO GIVEN AN INHALER, WHICH DOES HELP SOME. NO SPACER WAS PRESCRIBED FOR THE INHALER PT HAS HTN, GENERALIZED PAIN, GERD, TREATED HEPATITIS C NO HISTORY OF ASTHMA OR RESPIRATORY PROBLEMS SHE DOES SMOKE AND VAPE NICOTINE LMP--2 WEEKS AGO. S/P BTL PCP: [facility] Allergies and Home Medications Allergies Coded Allergies: No Known Drug Allergies (Verified , 08/19/16) Patient Home Medication List Home Medication List Reviewed: Yes Doxycycline Hyclate (Doxycycline Hyclate) 100 Mg Capsule, (Reported) Entered as Reported by: SHERRY BAZAN on 08/19/16 1743 Doxycycline Hyclate (Doxycycline Hyclate) 100 Mg Tablet, 100 MG PO BID Prescribed by: CRYSTAL DIANE on 03/09/231925 Guaifenesin/Dextromethorphan (Mucinex Dm ER 1,200-60 mg Tab) 1,200 Mg-60 Mg Tbmp.12hr, 1 EACH PO BID Prescribed by: CRYSTAL DIANE on 03/09/231925 Hydroxyzine HCl (Hydroxyzine HCl) 10 Mg Tablet, Unknown Dose PO, (Reported) Entered as Reported by: GINNY PAULINO on 05/07/16 1023 Meclizine HCl (Meclizine HCl) 25 Mg Tablet, 25 MG PO TID PRN for DIZZINESS Prescribed by: PAUL WITT on 10/15/18 1630 Metoprolol Succinate (Metoprolol Succinate) 50 Mg Tab.er.24h, 50 MG PO DAILY, (Reported) Entered as Reported by: GINNY PAULINO on 05/07/16 1023 Naproxen (Naproxen) 500 Mg Tablet, (Reported) Entered as Reported by: SHERRY BAZAN on 08/19/16 1743 Prednisone (Prednisone) 20 Mg Tab, 40 MG PO DAILY Prescribed by: PAUL WITT on 11/04/18 1642 Promethazine/Dextromethorphan (Promethazine-Dm Syrup) 6.25 Mg-15 Mg/5 Ml Syrup, 5 ML PO Q4H Prescribed by: CRYSTAL DIANE on 03/09/23 1926 Review of Systems Review of Systems Constitutional: see HPI, fever, malaise EENTM: see HPI, nose congestion Respiratory: see HPI, cough, short of breath Cardiovascular: no symptoms reported Gastrointestinal: no symptoms reported Genitourinary: no symptoms reported Musculoskeletal: no symptoms reported Skin: no symptoms reported Psychiatric/Neurological: No Symptoms Reported Hematologic/Lymphatic: No Symptoms Reported Immunological/Allergic: no symptoms reported Past Gdcpqav-Myvdub-Eanaul Hx Patient Social History Tobacco Use?: Yes Tobacco type used: Cigarettes Smoking Status: Current Everyday Smoker Use of E-Cig and/or Vaping dev: Yes E-Cig or Vaping type used: Nicotine Use of E-Cig and/or Vaping Kenneth: Current Everyday User Substance use?: No Alcohol Use?: No Immunizations Up To Date Tetanus Booster (TDap): Less than 5yrs Past Medical History Surgeries: Yes (LIVER BIOPSY, BRONCHOSCOPY, L KNEE SCOPE) Orthopedic, Tubal Ligation Respiratory: No Cardiac: Yes (FREQUENT PVCS) Deep Vein Thrombosis, Hypertension Neurological: Yes Headaches /Migraines Reproductive Disorders: No Genitourinary: No Gastrointestinal: Yes (LIVER BIOPSY 3-4 YEARS AGO; HEP C-treated) Gastroesophageal Reflux, Hepatitis Musculoskeletal: Yes (SACROLITIS; CHRONIC GENERALIZED PAIN ) Arthritis, Rheumatoid Arthritis Endocrine: Yes (NOT TREATED- wln ) Hyperthyroidism HEENT: No Cancer: No Psychosocial: Yes Anxiety, Depression Integumentary: No Blood Disorders: Yes (HEP C- treated) Family Medical History Cancer 19 FATHER G8 SISTER Family history: Diabetes mellitus 19 FATHER G8 SISTER Family history: Hypertension 19 FATHER No Pertinent Family Hx Physical Exam Vital Signs - First Documented 03/09/23 17:54 Temp 37.0 Pulse 90 Resp 18 B/P (MAP) 146/81 (102) Pulse Ox 97 O2 Delivery Room Air Capillary Refill : Height: 5'4.00" Weight: 211lbs. 9.6oz. 95.513890ha; 33.47 BMI Method:Actual General Appearance: WD/WN, no apparent distress, other (DOES NOT APPEAR ILL OR TO BE IN ANY DISCOMFORT OR DISTRESS) HEENT: PERRL/EOMI, normal ENT inspection, TMs normal, pharynx normal, other (NO SINUS TENDERNESS) Neck: non-tender, full range of motion, supple, normal inspection Respiratory: normal breath sounds, no respiratory distress, no accessory muscle use Cardiovascular: regular rate, rhythm, no murmur Gastrointestinal: non tender, soft Extremities: normal inspection, no pedal edema Neurologic/Psychiatric: die try out worker stamping II-XII nml as tested, no motor/sensory deficits, alert, normal mood/affect, oriented x 3 Skin: normal color, warm/dry, tattoos/piercings (MULTIPLE TATTOOS) Progress/Results/Core Measures Suspected Sepsis SIRS Temperature: Pulse: Respiratory Rate: Blood Pressure / Mean: Results/Orders Lab Results Laboratory Tests Test 03/09/23 18:01 Range/Units Influenza Type A (RT-PCR) Not Detected Not Detecte Influenza Type B (RT-PCR) Not Detected Not Detecte SARS-CoV-2 RNA (RT-PCR) Not Detected Not Detecte My Orders Orders - CRYSTAL DIANE DO Chest 1 View, Ap/Pa Only (03/09/23 17:54) Covid 19 Inhouse Test (03/09/23 17:54) Influenza A And B By Pcr (03/09/23 17:54) Ceftriaxone Iv/Im (Ceftriaxone Iv/Im) (03/09/23 19:30) Lidocaine 1% Inj 20 Ml (Xylocaine 1% Inj (03/09/23 19:30) Vital Signs/I&O 03/09/23 17:54 Temp 37.0 Pulse 90 Resp 18 B/P (MAP) 146/81 (102) Pulse Ox 97 O2 Delivery Room Air Capillary Refill : Progress Note : Progress Note VITALS ON ARRIVAL: TEMP 37.0, HR 90, RR 18, BP 146/81, O2 SAT 97% ON ROOM AIR COVID/FLU NEGATIVE CXR UNREMARKABLE UNEVENTFUL ER STAY NO DYSPNEA NO HYPOXIA NO FEVER NO SIGNIFICANT COUGH GIVEN ROCEPHIN IM DISCUSSED TEST RESULTS, ANTICIPATED COURSE, MEDICATIONS, SYMPTOMATIC TREATMENT, NEED FOR FOLLOW UP AND RETURN PRECAUTIONS SPACER SENT HOME WITH PATIENT AND INSTRUCTED ON USE REVIEWED PRIOR RECORDS, INCLUDING ER VISITS, ADMITS/H&P'S/CONSULTS/DISCHARGE SUMMARIES, TESTS/PROCEDURES Diagnostic Imaging Comments CXR--PER RADIOLOGIST REPORT AT 1932 FINDINGS: Heart size and pulmonary vasculature are normal. The lungs are clear without consolidation, pleural effusion, or pneumothorax. The osseous structures are intact. IMPRESSION: No acute radiographic abnormality in the chest. Reviewed: Reviewed by Me Departure Impression Primary Impression: Bronchitis Disposition: HOME, SELF-CARE Condition: Stable Departure-Patient Inst. Decision time for Depature: 19:24 Referrals: [facility] (PCP/Family) Primary Care Physician Patient Instructions: Bronchitis, Adult ED, How to Use a Metered Dose Inhaler ED Add. Discharge Instructions: LOTS OF CLEAR LIQUIDS USE YOUR ALBUTEROL INHALER WITH SPACER--2 PUFFS EVERY 4 HOURS NEEDED TYLENOL AND MOTRIN NEEDED FOR PAIN FOLLOW UP WITH [facility] IN 3-4 DAYS IF NO BETTER, RETURN TO ER IF WORSE All discharge instructions reviewed with patient and/or family. Voiced understanding. Scripts Promethazine/Dextromethorphan (Promethazine-Dm Syrup) 6.25 Mg-15 Mg/5 Ml Syrup 5 ML PO Q4H for Cough, #200 ML Prov: CRYSTAL DIANE DO 03/09/23 Guaifenesin/Dextromethorphan (Mucinex Dm ER 1,200-60 mg Tab) 1,200 Mg-60 Mg Tbmp.12hr 1 EACH PO BID, #20 EA Prov: CRYSTAL DIANE DO 03/09/23 Doxycycline Hyclate (Doxycycline Hyclate) 100 Mg Tablet 100 MG PO BID, #20 TAB 0 Refills Prov: CRYSTAL DIANE DO 03/09/23 CRYSTAL DIANE DO Mar 09, 2023 18:03
[2023-03-09] MEDS ORDERED: DOXY100T2 PO (19:26)
[2023-03-09] MEDS ORDERED: GUAI1TBM19 PO (19:26)
[2023-03-09] MEDS ORDERED: PROM473S15 PO (19:26)
--- NOTE | 2023-03-09 19:27 | Diagnostic Imaging Report ---
EXAMINATION: Chest, 1 view. HISTORY: Cough, short of breath. COMPARISON: 09/04/2014. FINDINGS: Heart size and pulmonary vasculature are normal. The lungs are clear without consolidation, pleural effusion, or pneumothorax. The osseous structures are intact. IMPRESSION: No acute radiographic abnormality in the chest. Dictated by: Dictated on workstation # [id number]
[2023-03-09] MEDS ORDERED: LIDOCAINE 1% INJ 20 ML VIAL INJ ONE (19:30)
[2023-03-09] MEDS ORDERED: cefTRIAXone 1,000 MG VIAL IV/IM IM ONE (19:30)
[2023-03-09 20:17] VITALS: BP 150/92
== END 2023-03-09 19:50 | disposition home or self-care (01) ==
LOC: EDUNIT# 17:45 → ER 17:47
DX: J40 Bronchitis, not specified as acute or chronic (principal); F17.290 Nicotine dependence, other tobacco product, uncomplicated; F17.210 Nicotine dependence, cigarettes, uncomplicated
CPT/HCPCS: 71045; 87636; 96372